=== PATIENT | male | born 1965 | race Caucasian/White ===

== ENCOUNTER 2017-01-18 14:34 | Inpatient (IN) | payer BC ==
[~2017-01-18] VITALS: Ht 190.5 cm; Wt 92.1 kg
[2017-01-18] MEDS ORDERED: IOHEXOL 300 MG/ML 75 ML VIAL IV ONE (15:45)
[2017-01-18] MEDS ORDERED: IOHEXOL 240 MG/ML 50ML VIAL. PO ONE (15:45)
--- NOTE | 2017-01-18 15:46 | PHYS DOC ---
Past Medical History Past Medical History: Hypertension Past Surgical History: Appendectomy, Cholecystectomy, Other Additional Past Surgical Histo: RECTAL FISTULA, FRACTURED NECK Alcohol Use: Occasionally Drug Use: None Adult General Chief Complaint Chief Complaint: ABSCESS HPI HPI Patient is a 51 year old male presents emergency department stating that he's had a past medical history of a rectal fistula which had to be surgically repaired. He states he has having pain in the same area. He states the pain started yesterday. He states his that had a bowel movement for the last 2 days. He states that he is not constipated states that it just feels as though he can' t push it out because it's too swollen. Patient denies any fever, chills or any nausea or vomiting. Review of Systems Review of Systems Constitutional: Denies fever or chills [] Eyes: Denies change in visual acuity, redness, or eye pain [] HENT: Denies nasal congestion or sore throat [] Respiratory: Denies cough or shortness of breath [] Cardiovascular: No additional information not addressed in HPI [] GI: Denies abdominal pain, nausea, vomiting, bloody stools or diarrhea [] : Denies dysuria or hematuria [] Musculoskeletal: Denies back pain or joint pain [] Integument: Denies rash or skin lesions [] Neurologic: Denies headache, focal weakness or sensory changes [] Endocrine: Denies polyuria or polydipsia [] Current Medications Current Medications Current Medications Medications (Trade) Dose Ordered Sig/Devante Start Time Stop Time Status Last Admin Dose Admin Fentanyl Citrate (Fentanyl 2ml Vial) 50 mcg 1X ONCE 01/18/17 16:15 01/18/17 16:16 DC 01/18/17 16:15 50 MCG Info (Do NOT chart on this entry -- for MONITORING) 1 each PRN DAILY PRN 01/18/17 16:00 01/20/17 15:59 Iohexol (Omnipaque 240 Mg/ml) 30 ml 1X ONCE 01/18/17 15:45 01/18/17 15:46 DC 01/18/17 15:45 30 ML Iohexol (Omnipaque 300 Mg/ml) 75 ml 1X ONCE 01/18/17 15:45 01/18/17 15:46 DC 01/18/17 17:28 75 ML Morphine Sulfate 5 mg 1X ONCE 01/18/17 18:15 01/18/17 18:16 DC 01/18/17 17:59 5 MG Ondansetron HCl (Zofran) 4 mg 1X ONCE 01/18/17 16:15 01/18/17 16:16 DC 01/18/17 16:14 4 MG Allergies Allergies Allergies Coded Allergies Type Severity Reaction Last Updated Verified No Known Drug Allergies 01/18/17 No Physical Exam Physical Exam Constitutional: Well developed, well nourished, no acute distress, non-toxic appearance. [] HENT: Normocephalic, atraumatic, bilateral external ears normal, oropharynx moist, no oral exudates, nose normal. [] Eyes: PERRLA, EOMI, conjunctiva normal, no discharge. [] Neck: Normal range of motion, no tenderness, supple, no stridor. [] Cardiovascular:Heart rate regular rhythm, no murmur [] Lungs & Thorax: Bilateral breath sounds clear to auscultation [] Abdomen: Bowel sounds normal, soft, no tenderness, no masses, no pulsatile masses. [] Skin: Warm, dry, no erythema, no rash. [] Back: No tenderness Extremities: No tenderness, no cyanosis, no clubbing, ROM intact, no edema. [] Neurologic: Alert and oriented X 3, normal motor function, normal sensory function, no focal deficits noted. [] Psychologic: Affect normal, judgement normal, mood normal. [] Rectal exam with tenderness noted along the scar of old fistula repair, manual exam with patient tender at the 7 'clock area Current Patient Data Vital Signs Vital Signs Date Time Temp Pulse Resp B/P (MAP) Pulse Ox O2 Delivery O2 Flow Rate FiO2 01/18/17 17:59 Room Air 01/18/17 15:02 98.4 83 12 96 98.4 Lab Values Laboratory Tests Test 01/18/17 15:40 White Blood Count 19.8 x10^3/uL (4.0-11.0) H Red Blood Count 3.39 x10^6/uL (4.30-5.70) L Hemoglobin 11.2 g/dL (13.0-17.5) L Hematocrit 32.7 % (39.0-53.0) L Mean Corpuscular Volume 96 fL (79-100) Mean Corpuscular Hemoglobin 33 pg (25-35) Mean Corpuscular Hemoglobin Concent 34 g/dL (31-37) Red Cell Distribution Width 12.6 % (11.5-14.5) Platelet Count 521 x10^3/uL (140-400) H Neutrophils (%) (Auto) 72 % (31-73) Lymphocytes (%) (Auto) 15 % (24-48) L Monocytes (%) (Auto) 12 % (0-9) H Eosinophils (%) (Auto) 1 % (0-3) Basophils (%) (Auto) 1 % (0-3) Neutrophils # (Auto) 14.3 x10^3uL (1.8-7.7) H Lymphocytes # (Auto) 2.9 x10^3/uL (1.0-4.8) Monocytes # (Auto) 2.4 x10^3/uL (0.0-1.1) H Eosinophils # (Auto) 0.1 x10^3/uL (0.0-0.7) Basophils # (Auto) 0.1 x10^3/uL (0.0-0.2) Segmented Neutrophils % 72 % (35-66) H Band Neutrophils % 7 % (0-9) Lymphocytes % 13 % (24-48) L Monocytes % 7 % (0-10) Eosinophils % 1 % (0-5) Platelet Estimate Increased (ADEQUATE) Erythrocyte Sedimentation Rate 96 (0-15) H Sodium Level 134 mmol/L (136-145) L Potassium Level 3.7 mmol/L (3.5-5.1) Chloride Level 96 mmol/L (98-107) L Carbon Dioxide Level 26 mmol/L (21-32) Anion Gap 12 (6-14) Blood Urea Nitrogen 25 mg/dL (8-26) Creatinine 1.3 mg/dL (0.7-1.3) Estimated GFR (Cockcroft-Gault) 58.0 BUN/Creatinine Ratio 19 (6-20) Glucose Level 89 mg/dL (70-99) Calcium Level 9.4 mg/dL (8.5-10.1) Total Bilirubin 0.5 mg/dL (0.2-1.0) Aspartate Amino Transferase (AST) 70 U/L (15-37) H Alanine Aminotransferase (ALT) 111 U/L (16-63) H Alkaline Phosphatase 190 U/L (46-116) H C-Reactive Protein, Quantitative 189.4 mg/L (0-3.3) H Total Protein 7.5 g/dL (6.4-8.2) Albumin 3.6 g/dL (3.4-5.0) Albumin/Globulin Ratio 0.9 (1.0-1.7) L Laboratory Tests 01/18/17 15:40 Laboratory Tests 01/18/17 15:40 EKG EKG [] Radiology/Procedures Radiology/Procedures []PROCEDURE: CT ABD PELV W/ORAL&IV CONTRAST CT abdomen and pelvis with contrast History: Right buttock abscess and pain, history of rectal fistula and repair, chronic rectal pain Technique: After the administration of oral and intravenous contrast, CT imaging was performed of the abdomen and pelvis. Multiplanar images are reviewed. Exposure: One or more of the following individualized dose reduction techniques were utilized for this examination: 1. Automated exposure control 2. Adjustment of the mA and/or kV according to patient size 3. Use of iterative reconstruction technique. Contrast: 60 cc Omnipaque 300 Comparison: March 31, 2009 Findings: There are couple of small although fairly dense nodules of the visualized right lower lobe, also tiny 0.2 cm right middle lobe nodule. There are now multiple (at least 13) scattered hypodense foci of the liver, largest in the right lobe 1.9 cm. There is no adrenal nodularity. Both kidneys enhance, no hydronephrosis. There is no focal abnormality of the spleen. There is now a small hypodense lesion of the uncinate process of the pancreas on the order of 0.9 cm with associated focus of calcification. There has been cholecystectomy in the interval. Bowel is not considered significantly dilated. No free air is identified. There apparently has been appendectomy. There is severe distention of the urinary bladder. There is asymmetric hazy and strandy changes of the subcutaneous fat of the right gluteal crease. There is abnormal 4.2 cm AP by 3.7 cm transverse by at least 5.2 cm CC fluid collection of the medial right gluteal subcutaneous fat. There is deviation of the anus to the left, no discernible fat plane between the anus and fluid collection/phlegmon. There are again several bilateral inguinal lymph nodes. There are several small subcentimeter retroperitoneal lymph nodes as seen previously. However portal caval node to 1.6 cm short axis dimension is larger, adjacent mild hazy change in the fat. Juliane mass also now results in a greater degree of effacement of fat about the right aspect of the celiac artery. Impression: 1. There is abnormal fluid collection/abscess of the medial right buttock soft tissues with no discernible fat plane between the adjacent anus which is deviated to the left. 2. There are multiple hypodense foci in the liver not seen on 2009 exam concerning for metastatic disease, abscesses less likely. 3. There is now small hypodense mass with calcification of the uncinate process of the pancreas concerning for possible pancreatic malignancy. Portacaval node is larger with effacement of fat and contact of the right aspect of the celiac artery. 4. There is severe distention of the urinary bladder. Electronically signed by: Leigh Hanley MD (01/18/2017 7:11 PM) DICTATED and SIGNED BY: LEIGH HANLEY MD DATE: 01/18/17 8114 CC: GALEN BURNETT APRN; CHIQUIS BELTRÁN DO ~ Course & Med Decision Making Course & Med Decision Making Pertinent Labs and Imaging studies reviewed. (See chart for details) [id number] scan, CBC, CMP and UA pending at this time. Report given to Raisa Zapata NP. 16:54 Assumed care Patient is a 51-year-old male with history of hypertension and smoking who presents today with a rectal abscess for the last 1 1/2 weeks to 2 weeks. Patient denies any drainage from the area. He states he has previous history of Rectal fistula a couple years ago. On physical exam patient has a moderately indurated area on the rectal and buttock area. No fluctuance to the area CT of the abdomen and pelvic shows patient has fluid collection/abscess on the right anus, multiple hypodense foci in the liver concerning for metastatic disease. There is small hypodense mass with calcification of the urine it processes of the pancreas concerning for possible pancreatic malignancy. There is also severe distention of urinary bladder. Patient states he cannot void efficiently and unless he is taking a shower. He states this has been going on for a couple weeks. 19:[address] Carmichael who will f/u with patient for general surgery. 19:[address] Flores who will follow up with patient for GI Dragon Disclaimer Dragon Disclaimer This electronic medical record was generated, in whole or in part, using a voice recognition dictation system. Departure Departure Impression: Primary Impression: Rectal abscess Additional Impressions: Pancreatic cancer Liver metastases Disposition: ADMITTED INPATIENT Condition: STABLE Problem Qualifiers Additional Impressions: Pancreatic cancer Pancreatic malignancy location: unspecified Qualified Codes: C25.9 - Malignant neoplasm of pancreas, unspecified GALEN BURNETT [employer]CH[employer]ISE PRESENTATION MANAGER January 18, 2017 15:46 RAISA ZAPATA MERCH[employer]ISE PRESENTATION MANAGER January 18, 2017 19:53
[2017-01-18 15:49] LABS: BASO # 0.1 x10^3/uL (0.0-0.2); BASO % 1 % (0-3); EOS % 1 % (0-3); HEMATOCRIT 32.7 % (39.0-53.0); HEMOGLOBIN 11.2 g/dL (13.0-17.5); LYMPH # 2.9 x10^3/uL (1.0-4.8); LYMPH % 15 % (24-48); MEAN CORPUSCULAR HEMOGLOBIN 33 pg (25-35); MEAN CORPUSCULAR HGB CONC 34 g/dL (31-37); MEAN CORPUSCULAR VOLUME 96 fL (79-100); MONO % 12 % (0-9); NEUT % 72 % (31-73); PLATELET COUNT 521 x10^3/uL (140-400); RED BLOOD COUNT 3.39 x10^6/uL (4.30-5.70); RED CELL DISTRIBUTION WIDTH 12.6 % (11.5-14.5); WHITE BLOOD COUNT 19.8 x10^3/uL (4.0-11.0)
[2017-01-18] MEDS ORDERED: CONTRAST GIVEN MC PRN (16:00)
[2017-01-18] MEDS ORDERED: fentaNYL PF VIAL 100 MCG/2 ML VIAL IV ONE (16:15)
[2017-01-18] MEDS ORDERED: ONDANSETRON PF 4 MG/2 ML VIAL. IV ONE (16:15)
[2017-01-18 16:26] LABS: CALCIUM 9.4 mg/dL (8.5-10.1); CREATININE 1.3 mg/dL (0.7-1.3); POTASSIUM 3.7 mmol/L (3.5-5.1)
[2017-01-18 16:28] LABS: % EOS 1 % (0-5); ALBUMIN 3.6 g/dL (3.4-5.0); ALBUMIN/GLOBULIN RATIO 0.9 (1.0-1.7); PLT ESTIMATE INCREASED (ADEQUATE); TOTAL BILIRUBIN 0.5 mg/dL (0.2-1.0); TOTAL PROTEIN 7.5 g/dL (6.4-8.2)
[2017-01-18] MEDS ORDERED: MORPHINE SULFATE 10 MG/ML VIAL. IV ONE (18:15)
--- NOTE | 2017-01-18 19:13 | RAD ---
CT abdomen and pelvis with contrast History: Right buttock abscess and pain, history of rectal fistula and repair, chronic rectal pain Technique: After the administration of oral and intravenous contrast, CT imaging was performed of the abdomen and pelvis. Multiplanar images are reviewed. Exposure: One or more of the following individualized dose reduction techniques were utilized for this examination: 1. Automated exposure control 2. Adjustment of the mA and/or kV according to patient size 3. Use of iterative reconstruction technique. Contrast: 60 cc Omnipaque 300 Comparison: March 31, 2009 Findings: There are couple of small although fairly dense nodules of the visualized right lower lobe, also tiny 0.2 cm right middle lobe nodule. There are now multiple (at least 13) scattered hypodense foci of the liver, largest in the right lobe 1.9 cm. There is no adrenal nodularity. Both kidneys enhance, no hydronephrosis. There is no focal abnormality of the spleen. There is now a small hypodense lesion of the uncinate process of the pancreas on the order of 0.9 cm with associated focus of calcification. There has been cholecystectomy in the interval. Bowel is not considered significantly dilated. No free air is identified. There apparently has been appendectomy. There is severe distention of the urinary bladder. There is asymmetric hazy and strandy changes of the subcutaneous fat of the right gluteal crease. There is abnormal 4.2 cm AP by 3.7 cm transverse by at least 5.2 cm CC fluid collection of the medial right gluteal subcutaneous fat. There is deviation of the anus to the left, no discernible fat plane between the anus and fluid collection/phlegmon. There are again several bilateral inguinal lymph nodes. There are several small subcentimeter retroperitoneal lymph nodes as seen previously. However portal caval node to 1.6 cm short axis dimension is larger, adjacent mild hazy change in the fat. Juliane mass also now results in a greater degree of effacement of fat about the right aspect of the celiac artery. Impression: 1. There is abnormal fluid collection/abscess of the medial right buttock soft tissues with no discernible fat plane between the adjacent anus which is deviated to the left. 2. There are multiple hypodense foci in the liver not seen on 2009 exam concerning for metastatic disease, abscesses less likely. 3. There is now small hypodense mass with calcification of the uncinate process of the pancreas concerning for possible pancreatic malignancy. Portacaval node is larger with effacement of fat and contact of the right aspect of the celiac artery. 4. There is severe distention of the urinary bladder. Electronically signed by: Bam Stewart MD (01/18/2017 7:11 PM)
[2017-01-18] MEDS ORDERED: ONDANSETRON PF 4 MG/2 ML VIAL. IV PRN (21:15)
[2017-01-18] MEDS ORDERED: ACETAMINOPHEN 325 MG TABLET. PO PRN (21:15)
[2017-01-18] MEDS ORDERED: CIPROFLOXACIN 400MG PREMIX 200 ML IV SCH (22:00)
[2017-01-18] MEDS: MORPHINE SULFATE 4 MG/ML DISP.SYRIN. IV PRN (22:01)
[2017-01-18] MEDS: IV NORMAL SALINE 1000ML BAG 1,000 ML IV SCH (22:03)
[2017-01-18] MEDS ORDERED: GABA300C8 PO (22:17)
[2017-01-18] MEDS ORDERED: MELO-150 PO (22:17)
[2017-01-18] MEDS ORDERED: CYCL10TA2 PO (22:17)
[2017-01-18] MEDS ORDERED: LISI1TAB5 PO (22:17)
[2017-01-18 23:00] VITALS: BP 105/63
[2017-01-19] VITALS (10 sets, daily range): BP systolic 86–98; BP diastolic 54–64
[2017-01-19] MEDS: MORPHINE SULFATE 4 MG/ML DISP.SYRIN. IV PRN (04:13)
[2017-01-19 06:16] LABS: BASO # 0.1 x10^3/uL (0.0-0.2); BASO % 1 % (0-3); EOS % 1 % (0-3); HEMATOCRIT 32.6 % (39.0-53.0); HEMOGLOBIN 11.1 g/dL (13.0-17.5); LYMPH # 1.8 x10^3/uL (1.0-4.8); LYMPH % 11 % (24-48); MEAN CORPUSCULAR HEMOGLOBIN 33 pg (25-35); MEAN CORPUSCULAR HGB CONC 34 g/dL (31-37); MEAN CORPUSCULAR VOLUME 96 fL (79-100); MONO % 12 % (0-9); NEUT % 75 % (31-73); PLATELET COUNT 489 x10^3/uL (140-400); RED BLOOD COUNT 3.39 x10^6/uL (4.30-5.70); RED CELL DISTRIBUTION WIDTH 12.9 % (11.5-14.5); WHITE BLOOD COUNT 16.4 x10^3/uL (4.0-11.0)
[2017-01-19 06:37] LABS: ALBUMIN/GLOBULIN RATIO 0.9 (1.0-1.7); CALCIUM 8.7 mg/dL (8.5-10.1); CREATININE 1.1 mg/dL (0.7-1.3); GFR 70.3; POTASSIUM 4.1 mmol/L (3.5-5.1); TOTAL BILIRUBIN 0.9 mg/dL (0.2-1.0); TOTAL PROTEIN 6.5 g/dL (6.4-8.2)
[2017-01-19] MEDS ORDERED: BUPIVAC MPF-EPI 0.5%-1:200000 30 ML VIAL. ONE (07:02)
[2017-01-19] MEDS ORDERED: PROPOFOL 20 ML IV ONE (07:27)
[2017-01-19] MEDS ORDERED: DEXAMETHASONE SOD PHOS 20 MG/5 ML VIAL. ONE (07:27)
[2017-01-19] MEDS ORDERED: LIDOCAINE 2% PF Vial for OR 5 ML VIAL. ONE (07:27)
[2017-01-19] MEDS ORDERED: ONDANSETRON PF 4 MG/2 ML VIAL. ONE (07:27)
[2017-01-19] MEDS ORDERED: fentaNYL PF VIAL 100 MCG/2 ML VIAL ONE ×2 (07:32→08:31)
[2017-01-19] MEDS ORDERED: IV RINGERS,LACTATED 1000ML 1,000 ML IV SCH (08:02)
[2017-01-19] MEDS ORDERED: LIDOCAINE 1% 1 ML SYRINGE. ID PRN (08:15)
[2017-01-19] MEDS ORDERED: ONDANSETRON PF 4 MG/2 ML VIAL. IV PRN ×2 (08:15→10:00)
[2017-01-19] MEDS ORDERED: fentaNYL PF VIAL 100 MCG/2 ML VIAL IV PRN ×2 (08:15)
[2017-01-19] MEDS ORDERED: HYDROmorphone 2 MG/ML VIAL IV PRN (08:15)
[2017-01-19] MEDS ORDERED: PROCHLORPERAZINE 10 MG/2 ML VIAL. IV PRN (08:15)
[2017-01-19] MEDS ORDERED: MORPHINE SULFATE 2 MG/ML DISP.SYRIN. IV PRN ×2 (08:15→10:00)
--- NOTE | 2017-01-19 08:17 | PDOC2 ---
CONSULT Date of Consult Date of Consult DATE: 01/19/17 TIME: 08:12 Reason for Consult Reason for Consult: darci rectal abscess Identification/Chief Complaint Chief Complaint rectal pain and swelling Source Source: Patient History of Present Illness Reason for Visit: 51 yo male with 2 weeks history of increasing rectal pain and swelling. Became so painful that he came to ED. He had a similar episode 2 years ago and had a fistulectomy at that time. Past Medical History Cardiovascular: No pertinent hx Pulmonary: No pertinent hx GI: No pertinent hx Heme/Onc: No pertinent hx Hepatobiliary: No pertinent hx Psych: No pertinent hx Rheumatologic: No pertinent hx Infectious disease: No pertinent hx ENT: No pertinent hx Renal/: No pertinent hx Endocrine: No pertinent hx Dermatology: No pertinent hx Past Surgical History Past Surgical History: Cholecystectomy, Other (fistulectomy) Family History Family History: No Significant Social History No ALCOHOL: rare Drugs: None Lives: with Family Current Problem List Problem List Problems Medical Problems: (1) Liver metastases Status: Acute (2) Pancreatic cancer Status: Acute (3) Rectal abscess Status: Acute Current Medications Current Medications Current Medications Iohexol (Omnipaque 300 Mg/ml) 75 ml 1X ONCE IV Last administered on 01/18/17 17:28; Start 01/18/17 at 15:45; Stop 01/18/17 at 15:46; Status DC Iohexol (Omnipaque 240 Mg/ml) 30 ml 1X ONCE PO Last administered on 01/18/17 15:45; Start 01/18/17 at 15:45; Stop 01/18/17 at 15:46; Status DC Info (Do NOT chart on this entry -- for MONITORING) 1 each PRN DAILY PRN MC SEE COMMENTS; Start 01/18/17 at 16:00; Stop 01/20/17 at 15:59 Fentanyl Citrate (Fentanyl 2ml Vial) 50 mcg 1X ONCE IV Last administered on 16:15; Start 01/18/17 at 16:15; Stop 01/18/17 at 16:16; Status DC Ondansetron HCl (Zofran) 4 mg 1X ONCE IV Last administered on 01/18/17 16:14 ; Start 01/18/17 at 16:15; Stop 01/18/17 at 16:16; Status DC Morphine Sulfate 5 mg 1X ONCE IV Last administered on 01/18/17 17:59; Start 01/18/17 at 18:15; Stop 01/18/17 at 18:16; Status DC Ondansetron HCl (Zofran) 4 mg PRN Q8HRS PRN IV NAUSEA/VOMITING; Start 01/18/17 at 21:15; Stop 01/19/17 at 21:14 Morphine Sulfate 4 mg PRN Q2HR PRN IV SEVERE PAIN Last administered on 04:13; Start 01/18/17 at 21:15; Stop 01/19/17 at 21:14 Acetaminophen (Tylenol) 650 mg PRN Q4HRS PRN PO FEVER Last administered on 01/18 22:13; Start 01/18/17 at 21:15; Stop 01/19/17 at 21:14 Sodium Chloride 1,000 ml @ 75 mls/hr [id number] IV Last administered on 22:03; Start 01/18/17 at 21:15 Metronidazole 100 ml @ 100 mls/hr Q8HRS IV Last administered on 01/19/17 06: 12; Start 01/18/17 at 22:00 Ciprofloxacin Lactate 200 ml @ 200 mls/hr Q12HR IV Last administered on 22:08; Start 01/18/17 at 22:00 Bupivacaine HCl/ Epinephrine Bitart (Sensorcain-Mpf Epi 0.5%-1:[id number]) 30 ml STK -MED ONCE .ROUTE ; Start 01/19/17 at 07:02; Stop 01/19/17 at 07:03; Status DC Dexamethasone Sodium Phosphate (Decadron) 20 mg STK-MED ONCE .ROUTE ; Start at 07:27; Stop 01/19/17 at 07:28; Status DC Ondansetron HCl (Zofran) 4 mg STK-MED ONCE .ROUTE ; Start 01/19/17 at 07:27; Stop 01/19/17 at 07:28; Status DC Propofol 20 ml @ As Directed STK-MED ONCE IV ; Start 01/19/17 at 07:27; Stop at 07:28; Status DC Lidocaine HCl (Lidocaine Pf 2% Vial) 5 ml STK-MED ONCE .ROUTE ; Start 01/19/17 at 07:27; Stop 01/19/17 at 07:28; Status DC Fentanyl Citrate (Fentanyl 2ml Vial) 100 mcg STK-MED ONCE .ROUTE ; Start at 07:32; Stop 01/19/17 at 07:33; Status DC Ondansetron HCl (Zofran) 4 mg PRN Q6HRS PRN IV NAUSEA/VOMITING; Start 01/19/17 at 08:15; Stop 01/20/17 at 08:14; Status UNV Fentanyl Citrate (Fentanyl 2ml Vial) 25 mcg PRN Q5MIN PRN IV MILD PAIN; Start 01/19/17 at 08:15; Stop 01/20/17 at 08:14; Status UNV Fentanyl Citrate (Fentanyl 2ml Vial) 50 mcg PRN Q5MIN PRN IV MODERATE PAIN; Start 01/19/17 at 08:15; Stop 01/20/17 at 08:14; Status UNV Morphine Sulfate 1 mg PRN Q10MIN PRN IV SEVERE PAIN; Start 01/19/17 at 08:15; Stop 01/20/17 at 08:14; Status UNV Ringer's Solution 1,000 ml @ 0 mls/hr Q0M IV ; Start 01/19/17 at 08:02; Stop at 20:01; Status UNV Lidocaine HCl 2 ml PRN 1X PRN ID PRIOR TO IV START; Start 01/19/17 at 08:15; Stop 01/20/17 at 08:14; Status UNV Hydromorphone HCl (Dilaudid) 0.5 mg PRN Q10MIN PRN IV SEV PAIN, Second choice; Start 01/19/17 at 08:15; Stop 01/20/17 at 08:14; Status UNV Prochlorperazine Edisylate (Compazine) 5 mg PACU PRN PRN IV NAUSEA, MRX1; Start 01/19/17 at 08:15; Stop 01/20/17 at 08:14; Status UNV Active Scripts Active Reported Lisinopril-Hctz 20-12.5 Mg Tab (Lisinopril/Hydrochlorothiazide) 1 Each Tablet 1 Tab PO DAILY Cyclobenzaprine Hcl 10 Mg Tablet 10 Mg PO DAILY Gabapentin 300 Mg Capsule 300 Mg PO TID Meloxicam 15 Mg Tablet 15 Mg PO DAILY Allergies Allergies: Coded Allergies: No Known Drug Allergies (Unverified , 01/18/17) ROS Gastrointestinal: Yes Other (rectal pain) Physical Exam General: Alert, Oriented X3, Cooperative, mild distress HEENT: Atraumatic, PERRLA, EOMI Lungs: Clear to auscultation, Normal air movement Heart: Regular rate, No murmurs Abdomen: Normal bowel sounds, Soft, No tenderness Extremities: No clubbing, No edema Skin: Other (area of erythema to the right of the anus TTP) Neuro: Normal speech Psych/Mental Status: Mental status NL Vitals VITALS Vital Signs Date Time Temp Pulse Resp B/P (MAP) Pulse Ox O2 Delivery O2 Flow Rate FiO2 01/19/17 04:45 20 Room Air 01/19/17 03:00 98.4 67 87/57 (67) 90 98.4 Labs Labs Laboratory Tests Test 01/18/17 15:40 01/19/17 06:00 White Blood Count 19.8 x10^3/uL (4.0-11.0) 16.4 x10^3/uL (4.0-11.0) Red Blood Count 3.39 x10^6/uL (4.30-5.70) 3.39 x10^6/uL (4.30-5.70) Hemoglobin 11.2 g/dL (13.0-17.5) 11.1 g/dL (13.0-17.5) Hematocrit 32.7 % (39.0-53.0) 32.6 % (39.0-53.0) Mean Corpuscular Volume 96 fL (79-100) 96 fL (79-100) Mean Corpuscular Hemoglobin 33 pg (25-35) 33 pg (25-35) Mean Corpuscular Hemoglobin Concent 34 g/dL (31-37) 34 g/dL (31-37) Red Cell Distribution Width 12.6 % (11.5-14.5) 12.9 % (11.5-14.5) Platelet Count 521 x10^3/uL (140-400) 489 x10^3/uL (140-400) Neutrophils (%) (Auto) 72 % (31-73) 75 % (31-73) Lymphocytes (%) (Auto) 15 % (24-48) 11 % (24-48) Monocytes (%) (Auto) 12 % (0-9) 12 % (0-9) Eosinophils (%) (Auto) 1 % (0-3) 1 % (0-3) Basophils (%) (Auto) 1 % (0-3) 1 % (0-3) Neutrophils # (Auto) 14.3 x10^3uL (1.8-7.7) 12.3 x10^3uL (1.8-7.7) Lymphocytes # (Auto) 2.9 x10^3/uL (1.0-4.8) 1.8 x10^3/uL (1.0-4.8) Monocytes # (Auto) 2.4 x10^3/uL (0.0-1.1) 2.0 x10^3/uL (0.0-1.1) Eosinophils # (Auto) 0.1 x10^3/uL (0.0-0.7) 0.2 x10^3/uL (0.0-0.7) Basophils # (Auto) 0.1 x10^3/uL (0.0-0.2) 0.1 x10^3/uL (0.0-0.2) Segmented Neutrophils % 72 % (35-66) Band Neutrophils % 7 % (0-9) Lymphocytes % 13 % (24-48) Monocytes % 7 % (0-10) Eosinophils % 1 % (0-5) Platelet Estimate Increased (ADEQUATE) Erythrocyte Sedimentation Rate 96 (0-15) Sodium Level 134 mmol/L (136-145) 136 mmol/L (136-145) Potassium Level 3.7 mmol/L (3.5-5.1) 4.1 mmol/L (3.5-5.1) Chloride Level 96 mmol/L (98-107) 99 mmol/L (98-107) Carbon Dioxide Level 26 mmol/L (21-32) 25 mmol/L (21-32) Anion Gap 12 (6-14) 12 (6-14) Blood Urea Nitrogen 25 mg/dL (8-26) 17 mg/dL (8-26) Creatinine 1.3 mg/dL (0.7-1.3) 1.1 mg/dL (0.7-1.3) Estimated GFR (Cockcroft-Gault) 58.0 70.3 BUN/Creatinine Ratio 19 (6-20) 15 (6-20) Glucose Level 89 mg/dL (70-99) 88 mg/dL (70-99) Calcium Level 9.4 mg/dL (8.5-10.1) 8.7 mg/dL (8.5-10.1) Total Bilirubin 0.5 mg/dL (0.2-1.0) 0.9 mg/dL (0.2-1.0) Aspartate Amino Transf (AST/SGOT) 70 U/L (15-37) 103 U/L (15-37) Alanine Aminotransferase (ALT/SGPT) 111 U/L (16-63) 111 U/L (16-63) Alkaline Phosphatase 190 U/L (46-116) 211 U/L (46-116) C-Reactive Protein, Quantitative 189.4 mg/L (0-3.3) Total Protein 7.5 g/dL (6.4-8.2) 6.5 g/dL (6.4-8.2) Albumin 3.6 g/dL (3.4-5.0) 3.0 g/dL (3.4-5.0) Albumin/Globulin Ratio 0.9 (1.0-1.7) 0.9 (1.0-1.7) Laboratory Tests Test 01/18/17 15:40 01/19/17 06:00 White Blood Count 19.8 x10^3/uL (4.0-11.0) 16.4 x10^3/uL (4.0-11.0) Red Blood Count 3.39 x10^6/uL (4.30-5.70) 3.39 x10^6/uL (4.30-5.70) Hemoglobin 11.2 g/dL (13.0-17.5) 11.1 g/dL (13.0-17.5) Hematocrit 32.7 % (39.0-53.0) 32.6 % (39.0-53.0) Mean Corpuscular Volume 96 fL (79-100) 96 fL (79-100) Mean Corpuscular Hemoglobin 33 pg (25-35) 33 pg (25-35) Mean Corpuscular Hemoglobin Concent 34 g/dL (31-37) 34 g/dL (31-37) Red Cell Distribution Width 12.6 % (11.5-14.5) 12.9 % (11.5-14.5) Platelet Count 521 x10^3/uL (140-400) 489 x10^3/uL (140-400) Neutrophils (%) (Auto) 72 % (31-73) 75 % (31-73) Lymphocytes (%) (Auto) 15 % (24-48) 11 % (24-48) Monocytes (%) (Auto) 12 % (0-9) 12 % (0-9) Eosinophils (%) (Auto) 1 % (0-3) 1 % (0-3) Basophils (%) (Auto) 1 % (0-3) 1 % (0-3) Neutrophils # (Auto) 14.3 x10^3uL (1.8-7.7) 12.3 x10^3uL (1.8-7.7) Lymphocytes # (Auto) 2.9 x10^3/uL (1.0-4.8) 1.8 x10^3/uL (1.0-4.8) Monocytes # (Auto) 2.4 x10^3/uL (0.0-1.1) 2.0 x10^3/uL (0.0-1.1) Eosinophils # (Auto) 0.1 x10^3/uL (0.0-0.7) 0.2 x10^3/uL (0.0-0.7) Basophils # (Auto) 0.1 x10^3/uL (0.0-0.2) 0.1 x10^3/uL (0.0-0.2) Segmented Neutrophils % 72 % (35-66) Band Neutrophils % 7 % (0-9) Lymphocytes % 13 % (24-48) Monocytes % 7 % (0-10) Eosinophils % 1 % (0-5) Platelet Estimate Increased (ADEQUATE) Erythrocyte Sedimentation Rate 96 (0-15) Sodium Level 134 mmol/L (136-145) 136 mmol/L (136-145) Potassium Level 3.7 mmol/L (3.5-5.1) 4.1 mmol/L (3.5-5.1) Chloride Level 96 mmol/L (98-107) 99 mmol/L (98-107) Carbon Dioxide Level 26 mmol/L (21-32) 25 mmol/L (21-32) Anion Gap 12 (6-14) 12 (6-14) Blood Urea Nitrogen 25 mg/dL (8-26) 17 mg/dL (8-26) Creatinine 1.3 mg/dL (0.7-1.3) 1.1 mg/dL (0.7-1.3) Estimated GFR (Cockcroft-Gault) 58.0 70.3 BUN/Creatinine Ratio 19 (6-20) 15 (6-20) Glucose Level 89 mg/dL (70-99) 88 mg/dL (70-99) Calcium Level 9.4 mg/dL (8.5-10.1) 8.7 mg/dL (8.5-10.1) Total Bilirubin 0.5 mg/dL (0.2-1.0) 0.9 mg/dL (0.2-1.0) Aspartate Amino Transf (AST/SGOT) 70 U/L (15-37) 103 U/L (15-37) Alanine Aminotransferase (ALT/SGPT) 111 U/L (16-63) 111 U/L (16-63) Alkaline Phosphatase 190 U/L (46-116) 211 U/L (46-116) C-Reactive Protein, Quantitative 189.4 mg/L (0-3.3) Total Protein 7.5 g/dL (6.4-8.2) 6.5 g/dL (6.4-8.2) Albumin 3.6 g/dL (3.4-5.0) 3.0 g/dL (3.4-5.0) Albumin/Globulin Ratio 0.9 (1.0-1.7) 0.9 (1.0-1.7) Images Images CT of the abd/pelvis showing perirectal abscess, also findings of pancreatic mass with mets to the liver Assessment/Plan Assessment/Plan Darci rectal abscess plan for I&D today Pancreatic mass, recommend oncology consult and refer to Dr Peterson for further evaluation and treatment options. NICCI ESTRADA MD January 19, 2017 08:17
--- NOTE | 2017-01-19 08:40 | PDOC ---
BRIEF OPERATIVE NOTE Date: January 19, 2017 Pre-Op Diagnosis Cheryl Rectal Abscess Post-Op Diagnosis Same Procedure Performed I&D of Abscess Surgeon Amol Anesthesia Type: General Blood Loss 30ml Specimens Obtained Cultures Findings as above Complications None NICCI ESTRADA MD January 19, 2017 08:40
[2017-01-19] MEDS ORDERED: oxyCODONE/APAP 5/325 1 TAB TABLET PO PRN (08:45)
--- NOTE | 2017-01-19 09:49 | OP ---
DATE OF SURGERY: 01/19/2017 PREOPERATIVE DIAGNOSIS: Perirectal abscess. POSTOPERATIVE DIAGNOSIS: Perirectal abscess. PROCEDURE: Incision and drainage of perirectal abscess. SURGEON: Kike Estrada M.D. INDICATIONS: The patient is a 51-year-old gentleman who has had 2 weeks history of increasing pain and swelling around the rectum with difficulty urinating, comes into the Emergency Department with worsening of pain. A CT scan was done, which showed fairly large perirectal ____ abscess. Procedure of incision and drainage was explained to the patient in detail. Risks, benefits were also discussed including bleeding, infection. Alternatives of this procedure were also discussed with the patient who seemed to understand and gave verbal and written consent to have the procedure performed. DESCRIPTION OF PROCEDURE: The patient was taken to the operating room and placed in the supine position. General anesthesia was initiated. Once the patient was asleep and intubated, he was placed in lithotomy, exposing the perirectal area. The area was prepped and draped in usual sterile fashion using Betadine scrub and solution. Area around the swelling was injected with 0.25% Marcaine with epinephrine. Incision was made with an 11 blade scalpel. Copious amounts of purulent material were expressed. This was cultured. The wound was then irrigated with copious amounts of normal saline until clear. Then, the wound was then packed with half inch iodoform Nu Gauze and dressed with ABD. The patient was awakened, extubated in the operating room, taken to recovery in stable condition. All sponge, instrument counts listed as correct. ESTIMATED BLOOD LOSS: 30 mL. KIKE ESTRADA MD DR: FE/florentin JOB#: [id number] / [id number]
[2017-01-19] MEDS ORDERED: PIP/TAZO PER PHARMACY MC PRN (10:00)
[2017-01-19] MEDS ORDERED: ACETAMINOPHEN 325 MG TABLET. PO PRN (10:00)
[2017-01-19] MEDS ORDERED: DOCUSATE SODIUM 100 MG CAPSULE. PO PRN (10:00)
[2017-01-19] MEDS ORDERED: hydrALAZINE 20 MG/ML VIAL. IVP PRN (10:00)
[2017-01-19] MEDS ORDERED: traMADol 50 MG TABLET PO PRN (10:00)
[2017-01-19] MEDS ORDERED: VANCOMYCIN 2 GM in IV NORMAL SALINE 500ML BAG 500 ML IV ONE (11:00)
[2017-01-19] MEDS: CYCLOBENZAPRINE 10 MG TABLET. PO SCH (11:20)
[2017-01-19] MEDS: LISINOPRIL 20 MG TABLET PO SCH (11:21)
[2017-01-19] MEDS: hydroCHLOROthiazide 12.5 MG CAPSULE PO SCH (11:21)
[2017-01-19] MEDS: GABAPENTIN 300 MG CAPSULE. PO SCH ×3 (11:22→20:59)
[2017-01-19] MEDS: MELOXICAM 7.5 MG TABLET PO SCH (11:22)
[2017-01-19] MEDS: PIPERACILLIN/TAZOBACTAM 3.375 GM in IV NORMAL SALINE 100ML 100 ML IV SCH ×2 (11:23→17:51)
[2017-01-19] MEDS: IV NORMAL SALINE 1000ML BAG 1,000 ML IV SCH (11:23)
--- NOTE | 2017-01-19 11:28 | PDOC ---
Infectious Disease Note ROS ROS Vital Sign Vital Signs Vital Signs Date Time Temp Pulse Resp B/P (MAP) Pulse Ox O2 Delivery O2 Flow Rate FiO2 01/19/17 09:27 99.2 69 20 104/65 94 Room Air 99.2 01/19/17 08:57 8 Labs Lab Laboratory Tests Test 01/18/17 15:40 01/19/17 06:00 White Blood Count 19.8 x10^3/uL (4.0-11.0) 16.4 x10^3/uL (4.0-11.0) Red Blood Count 3.39 x10^6/uL (4.30-5.70) 3.39 x10^6/uL (4.30-5.70) Hemoglobin 11.2 g/dL (13.0-17.5) 11.1 g/dL (13.0-17.5) Hematocrit 32.7 % (39.0-53.0) 32.6 % (39.0-53.0) Mean Corpuscular Volume 96 fL (79-100) 96 fL (79-100) Mean Corpuscular Hemoglobin 33 pg (25-35) 33 pg (25-35) Mean Corpuscular Hemoglobin Concent 34 g/dL (31-37) 34 g/dL (31-37) Red Cell Distribution Width 12.6 % (11.5-14.5) 12.9 % (11.5-14.5) Platelet Count 521 x10^3/uL (140-400) 489 x10^3/uL (140-400) Neutrophils (%) (Auto) 72 % (31-73) 75 % (31-73) Lymphocytes (%) (Auto) 15 % (24-48) 11 % (24-48) Monocytes (%) (Auto) 12 % (0-9) 12 % (0-9) Eosinophils (%) (Auto) 1 % (0-3) 1 % (0-3) Basophils (%) (Auto) 1 % (0-3) 1 % (0-3) Neutrophils # (Auto) 14.3 x10^3uL (1.8-7.7) 12.3 x10^3uL (1.8-7.7) Lymphocytes # (Auto) 2.9 x10^3/uL (1.0-4.8) 1.8 x10^3/uL (1.0-4.8) Monocytes # (Auto) 2.4 x10^3/uL (0.0-1.1) 2.0 x10^3/uL (0.0-1.1) Eosinophils # (Auto) 0.1 x10^3/uL (0.0-0.7) 0.2 x10^3/uL (0.0-0.7) Basophils # (Auto) 0.1 x10^3/uL (0.0-0.2) 0.1 x10^3/uL (0.0-0.2) Segmented Neutrophils % 72 % (35-66) Band Neutrophils % 7 % (0-9) Lymphocytes % 13 % (24-48) Monocytes % 7 % (0-10) Eosinophils % 1 % (0-5) Platelet Estimate Increased (ADEQUATE) Erythrocyte Sedimentation Rate 96 (0-15) Sodium Level 134 mmol/L (136-145) 136 mmol/L (136-145) Potassium Level 3.7 mmol/L (3.5-5.1) 4.1 mmol/L (3.5-5.1) Chloride Level 96 mmol/L (98-107) 99 mmol/L (98-107) Carbon Dioxide Level 26 mmol/L (21-32) 25 mmol/L (21-32) Anion Gap 12 (6-14) 12 (6-14) Blood Urea Nitrogen 25 mg/dL (8-26) 17 mg/dL (8-26) Creatinine 1.3 mg/dL (0.7-1.3) 1.1 mg/dL (0.7-1.3) Estimated GFR (Cockcroft-Gault) 58.0 70.3 BUN/Creatinine Ratio 19 (6-20) 15 (6-20) Glucose Level 89 mg/dL (70-99) 88 mg/dL (70-99) Calcium Level 9.4 mg/dL (8.5-10.1) 8.7 mg/dL (8.5-10.1) Total Bilirubin 0.5 mg/dL (0.2-1.0) 0.9 mg/dL (0.2-1.0) Aspartate Amino Transf (AST/SGOT) 70 U/L (15-37) 103 U/L (15-37) Alanine Aminotransferase (ALT/SGPT) 111 U/L (16-63) 111 U/L (16-63) Alkaline Phosphatase 190 U/L (46-116) 211 U/L (46-116) C-Reactive Protein, Quantitative 189.4 mg/L (0-3.3) Total Protein 7.5 g/dL (6.4-8.2) 6.5 g/dL (6.4-8.2) Albumin 3.6 g/dL (3.4-5.0) 3.0 g/dL (3.4-5.0) Albumin/Globulin Ratio 0.9 (1.0-1.7) 0.9 (1.0-1.7) Objective Assessment Cheryl-rectal abscess, s/p I and D, 01/19 Fever Leukocytosis Pancreatic mass with possible liver mets Urinary retention requiring indwelling Kunz Plan Plan of Care Agree with Bethany and Ivory. Had buttock abscess 2 years ago Consider ONC eval await ? MRI per GI monitor WBC, Cr and temp F/u intra-op cultures, d/w micro D/w mother Thank you [id number] D/w mother WARRENTYLOR DAVIS Svetlana PERALES January 19, 2017 11:28 ZULY HANNA MD January 19, 2017 15:03
--- NOTE | 2017-01-19 12:40 | PDOC1 ---
History and Physical Date of Admission Date of Admission 01/18/17 Identification/Chief Complaint Chief Complaint rectal pain Problems: Source Source: Chart review, Patient History of Present Illness History of Present Illness HPI Patient is a 51 year old male presents emergency department for rectal pain for 2 weeks. 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 He started to feel right side buttock/rectal pain 2 weeks ago, 10/10, could not urinate well, had fever with T 100s, no chills. The pain and swelling is getting worse for 2 days. Last BM was 2 days ago.He states that he is not constipated states that it just feels as though he can't push it out because it' s too swollen. in ER, CT showed rectal abscess, liver and pancreatic mass, distended bladder. no cough, sob, chest pain lost 10 pounds within 2 months, pt states 2/2 work hard Past Medical History Cardiovascular: HTN Pulmonary: No pertinent hx GI: No pertinent hx Heme/Onc: No pertinent hx Hepatobiliary: No pertinent hx Psych: No pertinent hx Rheumatologic: No pertinent hx Infectious disease: No pertinent hx ENT: No pertinent hx Renal/: No pertinent hx Endocrine: No pertinent hx Dermatology: No pertinent hx Past Surgical History Past Surgical History: Cholecystectomy, Other (fistulectomy) Family History Family History: No Significant Social History Smoke: 1 pack per day ALCOHOL: other (3-4 times per week, 12 ounces per time) Drugs: None Current Problem List Problem List Problems Medical Problems: (1) Liver metastases Status: Acute (2) Pancreatic cancer Status: Acute (3) Rectal abscess Status: Acute Current Medications Current Medications Current Medications Medications (Trade) Dose Ordered Sig/Devante Start Time Stop Time Status Last Admin Dose Admin Acetaminophen (Tylenol) 650 mg PRN Q6HRS PRN 01/19/17 10:00 Bupivacaine HCl/ Epinephrine Bitart (Sensorcain-Mpf Epi 0.5%-1:[id number]) 30 ml STK-MED ONCE 01/19/17 07:02 01/19/17 07:03 DC 01/19/17 08:28 3 ML Ciprofloxacin Lactate 200 ml @ 200 mls/hr Q12HR 01/18/17 22:00 01/19/17 10:00 DC 01/18/17 22:08 200 MLS/HR Cyclobenzaprine HCl (Flexeril) 10 mg DAILY 01/19/17 10:00 01/19/17 11:20 10 MG Dexamethasone Sodium Phosphate (Decadron) 20 mg STK-MED ONCE 01/19/17 07:27 01/19/17 07:28 DC Docusate Sodium (Colace) 100 mg PRN DAILY PRN 01/19/17 10:00 Fentanyl Citrate (Fentanyl 2ml Vial) 100 mcg STK-MED ONCE 01/19/17 08:31 01/19/17 08:32 DC Gabapentin (Neurontin) 300 mg TID 01/19/17 10:00 01/19/17 11:22 300 MG Hydralazine HCl (Apresoline) 10 mg PRN Q4HRS PRN 01/19/17 10:00 Hydrochlorothiazide (Microzide) 12.5 mg DAILY 01/19/17 10:00 01/19/17 11:21 12.5 MG Hydromorphone HCl (Dilaudid) 0.5 mg PRN Q10MIN PRN 01/19/17 08:15 01/19/17 10:41 DC Info (Do NOT chart on this entry -- for MONITORING) 1 each PRN DAILY PRN 01/18/17 16:00 01/20/17 15:59 Iohexol (Omnipaque 240 Mg/ml) 30 ml 1X ONCE 01/18/17 15:45 01/18/17 15:46 DC 01/18/17 15:45 30 ML Iohexol (Omnipaque 300 Mg/ml) 75 ml 1X ONCE 01/18/17 15:45 01/18/17 15:46 DC 01/18/17 17:28 75 ML Lidocaine HCl 2 ml PRN 1X PRN 01/19/17 08:15 01/19/17 18:00 Lidocaine HCl (Lidocaine Pf 2% Vial) 5 ml STK-MED ONCE 01/19/17 07:27 01/19/17 07:28 DC Lisinopril (Prinivil) 20 mg DAILY 01/19/17 10:00 01/19/17 11:21 20 MG Meloxicam (Mobic) 15 mg DAILY 01/19/17 10:00 01/19/17 11:22 15 MG Metronidazole 100 ml @ 100 mls/hr Q8HRS 01/18/17 22:00 01/19/17 10:00 DC 01/19/17 06:12 100 MLS/HR Morphine Sulfate 2 mg PRN Q2HR PRN 01/19/17 10:00 Ondansetron HCl (Zofran) 4 mg PRN Q6HRS PRN 01/19/17 10:00 Oxycodone/ Acetaminophen (Percocet 5/325) 2 tab PRN Q4HRS PRN 01/19/17 08:45 Piperacillin Sod/ Tazobactam Sod (Zosyn Per Pharmacy) 1 each PRN DAILY PRN 01/19/17 10:00 Piperacillin Sod/ Tazobactam Sod 3.375 gm/Sodium Chloride 100 ml @ 200 mls/hr Q6HRS 01/19/17 11:00 01/19/17 11:23 200 MLS/HR Prochlorperazine Edisylate (Compazine) 5 mg PACU PRN PRN 01/19/17 08:15 01/19/17 10:41 DC Propofol 20 ml @ As Directed STK-MED ONCE 01/19/17 07:27 01/19/17 07:28 DC Ringer's Solution 1,000 ml @ 30 mls/hr Q24H 01/19/17 08:02 01/19/17 10:35 DC Sodium Chloride 1,000 ml @ 75 mls/hr [id number] 01/18/17 21:15 01/19/17 11:23 75 MLS/HR Tramadol HCl (Ultram) 50 mg PRN Q6HRS PRN 01/19/17 10:00 Vancomycin HCl (Vanco Per Pharmacy) 1 each PRN DAILY PRN 01/19/17 10:00 Vancomycin HCl 2 gm/Sodium Chloride 500 ml @ 250 mls/hr 1X ONCE 01/19/17 11:00 01/19/17 12:59 01/19/17 12:30 250 MLS/HR Allergies Allergies Allergies Coded Allergies Type Severity Reaction Last Updated Verified No Known Drug Allergies 01/18/17 No ROS Review of System CONSTITUTIONAL: No fever or chills EYES: No recent changes SKIN: No rash or itching CARDIOVASCULAR: No chest pain, syncope, palpitations, or edema RESPIRATORY: No SOB or cough GASTROINTESTINAL: No nausea, vomiting or abdominal pain NEUROLOGICAL: No headaches or weakness ENDOCRINE: No cold or heat intolerance GENITOURINARY: No urgency or frequency of urination MUSCULOSKELETAL: No back pain or joint pain LYMPHATICS: No enlarged lymph nodes PSYCHIATRIC: No anxiety or depression Physical Exam Physical Exam GEN.: No apparent distress. Alert and oriented. HEENT: Head is normocephalic, atraumatic NECK: Supple. LUNGS: Clear to auscultation. HEART: RRR, S1, S2 present. Peripheral pulses intact ABDOMEN: Soft, nontender. Positive bowel sounds. EXTREMITIES: Without any cyanosis. NEUROLOGIC: Normal speech, normal tone PSYCHIATRIC: Normal affect, normal mood. SKIN: right side posterior aspect of right buttock s/p I and D, with some fresh blood in the dressing, dressing packed. Vitals Vitals Vital Signs Date Time Temp Pulse Resp B/P (MAP) Pulse Ox O2 Delivery O2 Flow Rate FiO2 01/19/17 11:21 69 104/65 01/19/17 09:27 99.2 20 94 Room Air 99.2 01/19/17 08:57 8 Labs Labs Laboratory Tests Test 01/18/17 15:40 01/19/17 06:00 White Blood Count 19.8 x10^3/uL (4.0-11.0) 16.4 x10^3/uL (4.0-11.0) Red Blood Count 3.39 x10^6/uL (4.30-5.70) 3.39 x10^6/uL (4.30-5.70) Hemoglobin 11.2 g/dL (13.0-17.5) 11.1 g/dL (13.0-17.5) Hematocrit 32.7 % (39.0-53.0) 32.6 % (39.0-53.0) Mean Corpuscular Volume 96 fL (79-100) 96 fL (79-100) Mean Corpuscular Hemoglobin 33 pg (25-35) 33 pg (25-35) Mean Corpuscular Hemoglobin Concent 34 g/dL (31-37) 34 g/dL (31-37) Red Cell Distribution Width 12.6 % (11.5-14.5) 12.9 % (11.5-14.5) Platelet Count 521 x10^3/uL (140-400) 489 x10^3/uL (140-400) Neutrophils (%) (Auto) 72 % (31-73) 75 % (31-73) Lymphocytes (%) (Auto) 15 % (24-48) 11 % (24-48) Monocytes (%) (Auto) 12 % (0-9) 12 % (0-9) Eosinophils (%) (Auto) 1 % (0-3) 1 % (0-3) Basophils (%) (Auto) 1 % (0-3) 1 % (0-3) Neutrophils # (Auto) 14.3 x10^3uL (1.8-7.7) 12.3 x10^3uL (1.8-7.7) Lymphocytes # (Auto) 2.9 x10^3/uL (1.0-4.8) 1.8 x10^3/uL (1.0-4.8) Monocytes # (Auto) 2.4 x10^3/uL (0.0-1.1) 2.0 x10^3/uL (0.0-1.1) Eosinophils # (Auto) 0.1 x10^3/uL (0.0-0.7) 0.2 x10^3/uL (0.0-0.7) Basophils # (Auto) 0.1 x10^3/uL (0.0-0.2) 0.1 x10^3/uL (0.0-0.2) Segmented Neutrophils % 72 % (35-66) Band Neutrophils % 7 % (0-9) Lymphocytes % 13 % (24-48) Monocytes % 7 % (0-10) Eosinophils % 1 % (0-5) Platelet Estimate Increased (ADEQUATE) Erythrocyte Sedimentation Rate 96 (0-15) Sodium Level 134 mmol/L (136-145) 136 mmol/L (136-145) Potassium Level 3.7 mmol/L (3.5-5.1) 4.1 mmol/L (3.5-5.1) Chloride Level 96 mmol/L (98-107) 99 mmol/L (98-107) Carbon Dioxide Level 26 mmol/L (21-32) 25 mmol/L (21-32) Anion Gap 12 (6-14) 12 (6-14) Blood Urea Nitrogen 25 mg/dL (8-26) 17 mg/dL (8-26) Creatinine 1.3 mg/dL (0.7-1.3) 1.1 mg/dL (0.7-1.3) Estimated GFR (Cockcroft-Gault) 58.0 70.3 BUN/Creatinine Ratio 19 (6-20) 15 (6-20) Glucose Level 89 mg/dL (70-99) 88 mg/dL (70-99) Calcium Level 9.4 mg/dL (8.5-10.1) 8.7 mg/dL (8.5-10.1) Total Bilirubin 0.5 mg/dL (0.2-1.0) 0.9 mg/dL (0.2-1.0) Aspartate Amino Transf (AST/SGOT) 70 U/L (15-37) 103 U/L (15-37) Alanine Aminotransferase (ALT/SGPT) 111 U/L (16-63) 111 U/L (16-63) Alkaline Phosphatase 190 U/L (46-116) 211 U/L (46-116) C-Reactive Protein, Quantitative 189.4 mg/L (0-3.3) Total Protein 7.5 g/dL (6.4-8.2) 6.5 g/dL (6.4-8.2) Albumin 3.6 g/dL (3.4-5.0) 3.0 g/dL (3.4-5.0) Albumin/Globulin Ratio 0.9 (1.0-1.7) 0.9 (1.0-1.7) Laboratory Tests Test 01/18/17 15:40 01/19/17 06:00 White Blood Count 19.8 x10^3/uL (4.0-11.0) 16.4 x10^3/uL (4.0-11.0) Red Blood Count 3.39 x10^6/uL (4.30-5.70) 3.39 x10^6/uL (4.30-5.70) Hemoglobin 11.2 g/dL (13.0-17.5) 11.1 g/dL (13.0-17.5) Hematocrit 32.7 % (39.0-53.0) 32.6 % (39.0-53.0) Mean Corpuscular Volume 96 fL (79-100) 96 fL (79-100) Mean Corpuscular Hemoglobin 33 pg (25-35) 33 pg (25-35) Mean Corpuscular Hemoglobin Concent 34 g/dL (31-37) 34 g/dL (31-37) Red Cell Distribution Width 12.6 % (11.5-14.5) 12.9 % (11.5-14.5) Platelet Count 521 x10^3/uL (140-400) 489 x10^3/uL (140-400) Neutrophils (%) (Auto) 72 % (31-73) 75 % (31-73) Lymphocytes (%) (Auto) 15 % (24-48) 11 % (24-48) Monocytes (%) (Auto) 12 % (0-9) 12 % (0-9) Eosinophils (%) (Auto) 1 % (0-3) 1 % (0-3) Basophils (%) (Auto) 1 % (0-3) 1 % (0-3) Neutrophils # (Auto) 14.3 x10^3uL (1.8-7.7) 12.3 x10^3uL (1.8-7.7) Lymphocytes # (Auto) 2.9 x10^3/uL (1.0-4.8) 1.8 x10^3/uL (1.0-4.8) Monocytes # (Auto) 2.4 x10^3/uL (0.0-1.1) 2.0 x10^3/uL (0.0-1.1) Eosinophils # (Auto) 0.1 x10^3/uL (0.0-0.7) 0.2 x10^3/uL (0.0-0.7) Basophils # (Auto) 0.1 x10^3/uL (0.0-0.2) 0.1 x10^3/uL (0.0-0.2) Segmented Neutrophils % 72 % (35-66) Band Neutrophils % 7 % (0-9) Lymphocytes % 13 % (24-48) Monocytes % 7 % (0-10) Eosinophils % 1 % (0-5) Platelet Estimate Increased (ADEQUATE) Erythrocyte Sedimentation Rate 96 (0-15) Sodium Level 134 mmol/L (136-145) 136 mmol/L (136-145) Potassium Level 3.7 mmol/L (3.5-5.1) 4.1 mmol/L (3.5-5.1) Chloride Level 96 mmol/L (98-107) 99 mmol/L (98-107) Carbon Dioxide Level 26 mmol/L (21-32) 25 mmol/L (21-32) Anion Gap 12 (6-14) 12 (6-14) Blood Urea Nitrogen 25 mg/dL (8-26) 17 mg/dL (8-26) Creatinine 1.3 mg/dL (0.7-1.3) 1.1 mg/dL (0.7-1.3) Estimated GFR (Cockcroft-Gault) 58.0 70.3 BUN/Creatinine Ratio 19 (6-20) 15 (6-20) Glucose Level 89 mg/dL (70-99) 88 mg/dL (70-99) Calcium Level 9.4 mg/dL (8.5-10.1) 8.7 mg/dL (8.5-10.1) Total Bilirubin 0.5 mg/dL (0.2-1.0) 0.9 mg/dL (0.2-1.0) Aspartate Amino Transf (AST/SGOT) 70 U/L (15-37) 103 U/L (15-37) Alanine Aminotransferase (ALT/SGPT) 111 U/L (16-63) 111 U/L (16-63) Alkaline Phosphatase 190 U/L (46-116) 211 U/L (46-116) C-Reactive Protein, Quantitative 189.4 mg/L (0-3.3) Total Protein 7.5 g/dL (6.4-8.2) 6.5 g/dL (6.4-8.2) Albumin 3.6 g/dL (3.4-5.0) 3.0 g/dL (3.4-5.0) Albumin/Globulin Ratio 0.9 (1.0-1.7) 0.9 (1.0-1.7) VTE Prophylaxis Ordered VTE Prophylaxis Devices: Yes VTE Pharmacological Prophylaxi: Yes Assessment/Plan Assessment/Plan 1. right side darci rectal abscess s/p I and D on 01/19 2. liver and pancreatic mass found in CT 3. htn 5. depression 6. sepsis with 1 7. tobaccoism plan: fu with id, sx, gi ,onco consult zosyn, vanco for now, ivf, fu cx cont home meds dvt ppx pain control check [id number], CEA J CARLOS GUTIERREZ MD January 19, 2017 12:40
--- NOTE | 2017-01-19 12:52 | PDOC2 ---
CONSULT Date of Consult Date of Consult DATE: 01/19/17 TIME: 12:29 Reason for Consult Reason for Consult: Abnormal CT imaging Referring Physician Referring Physician: Dr. Segundo Source Source: Chart review, Patient History of Present Illness Reason for Visit: 51 y/o male who presented to ER with recurrent right perirectal abcess; he has since undergone I and D of this. On CT done before surgery, pancreatic and hepatic lesions were identified and we were asked to see re: these. No symptoms referable. Denies heartburn, dysphagia or prior proven PUD, though I gather may have some dyspeptic symptoms. S/p abby. No h/o liver disease, though mildly abnormal LFT's here (and on 2 occasions at [facility]). No pancreatic history. Smoker. Drank more heavily in the past, but now more of a "weekend warrior". Rare/occasional ASA or NSAID use. Denies diarrhea, constipation, hematochezia or melena. No nausea or vomiting. Wt/appetite OK. GI family history positive for PUD. No prior endoscopy of any kind. Initial perirectal abcess in February 2015--distal half of that year with debridements/wound vac. 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 All of this at [facility]. Past Medical History Cardiovascular: HTN Musculoskeletal: Osteoarthritis, Other (cervical fracture) Past Surgical History Past Surgical History: Appendectomy, Cholecystectomy, Other (fistulectomy/ drainage or perirectal abcess/ORIF cervical fracture) Family History Family History: Diabetes, Hypertension, Stroke Social History Social History Smokes ALCOHOL: rare Drugs: None Lives: with Family Current Problem List Problem List Problems Medical Problems: (1) Liver metastases Status: Acute (2) Pancreatic cancer Status: Acute (3) Rectal abscess Status: Acute Current Medications Current Medications Current Medications Iohexol (Omnipaque 300 Mg/ml) 75 ml 1X ONCE IV Last administered on 01/18/17t 17:28; Start 01/18/17 at 15:45; Stop 01/18/17 at 15:46; Status DC Iohexol (Omnipaque 240 Mg/ml) 30 ml 1X ONCE PO Last administered on 01/18/17t 15:45; Start 01/18/17 at 15:45; Stop 01/18/17 at 15:46; Status DC Info (Do NOT chart on this entry -- for MONITORING) 1 each PRN DAILY PRN MC SEE COMMENTS; Start 01/18/17 at 16:00; Stop 01/20/17 at 15:59 Fentanyl Citrate (Fentanyl 2ml Vial) 50 mcg 1X ONCE IV Last administered on 16:15; Start 01/18/17 at 16:15; Stop 01/18/17 at 16:16; Status DC Ondansetron HCl (Zofran) 4 mg 1X ONCE IV Last administered on 01/18/17 16:14 ; Start 01/18/17 at 16:15; Stop 01/18/17 at 16:16; Status DC Morphine Sulfate 5 mg 1X ONCE IV Last administered on 01/18/17 17:59; Start 01/18/17 at 18:15; Stop 01/18/17 at 18:16; Status DC Ondansetron HCl (Zofran) 4 mg PRN Q8HRS PRN IV NAUSEA/VOMITING; Start 01/18/17 at 21:15; Stop 01/19/17 at 21:14 Morphine Sulfate 4 mg PRN Q2HR PRN IV SEVERE PAIN Last administered on 04:13; Start 01/18/17 at 21:15; Stop 01/19/17 at 10:20; Status DC Acetaminophen (Tylenol) 650 mg PRN Q4HRS PRN PO FEVER Last administered on 01/18 22:13; Start 01/18/17 at 21:15; Stop 01/19/17 at 10:20; Status DC Sodium Chloride 1,000 ml @ 75 mls/hr [id number] IV Last administered on 11:23; Start 01/18/17 at 21:15 Metronidazole 100 ml @ 100 mls/hr Q8HRS IV Last administered on 01/19/17 06: 12; Start 01/18/17 at 22:00; Stop 01/19/17 at 10:00; Status DC Ciprofloxacin Lactate 200 ml @ 200 mls/hr Q12HR IV Last administered on 22:08; Start 01/18/17 at 22:00; Stop 01/19/17 at 10:00; Status DC Bupivacaine HCl/ Epinephrine Bitart (Sensorcain-Mpf Epi 0.5%-1:[id number]) 30 ml STK -MED ONCE .ROUTE Last administered on 01/19/17t 08:28; Start 01/19/17 at 07:02 ; Stop 01/19/17 at 07:03; Status DC Dexamethasone Sodium Phosphate (Decadron) 20 mg STK-MED ONCE .ROUTE ; Start at 07:27; Stop 01/19/17 at 07:28; Status DC Ondansetron HCl (Zofran) 4 mg STK-MED ONCE .ROUTE ; Start 01/19/17 at 07:27; Stop 01/19/17 at 07:28; Status DC Propofol 20 ml @ As Directed STK-MED ONCE IV ; Start 01/19/17 at 07:27; Stop at 07:28; Status DC Lidocaine HCl (Lidocaine Pf 2% Vial) 5 ml STK-MED ONCE .ROUTE ; Start 01/19/17 at 07:27; Stop 01/19/17 at 07:28; Status DC Fentanyl Citrate (Fentanyl 2ml Vial) 100 mcg STK-MED ONCE .ROUTE ; Start at 07:32; Stop 01/19/17 at 07:33; Status DC Ondansetron HCl (Zofran) 4 mg PRN Q6HRS PRN IV NAUSEA/VOMITING; Start 01/19/17 at 08:15; Stop 01/19/17 at 18:00 Fentanyl Citrate (Fentanyl 2ml Vial) 25 mcg PRN Q5MIN PRN IV MILD PAIN; Start 01/19/17 at 08:15; Stop 01/19/17 at 10:41; Status DC Fentanyl Citrate (Fentanyl 2ml Vial) 50 mcg PRN Q5MIN PRN IV MODERATE PAIN; Start 01/19/17 at 08:15; Stop 01/19/17 at 10:41; Status DC Morphine Sulfate 1 mg PRN Q10MIN PRN IV SEVERE PAIN; Start 01/19/17 at 08:15; Stop 01/19/17 at 10:41; Status DC Ringer's Solution 1,000 ml @ 30 mls/hr Q24H IV ; Start 01/19/17 at 08:02; Stop 01/19/17 at 10:35; Status DC Lidocaine HCl 2 ml PRN 1X PRN ID PRIOR TO IV START; Start 01/19/17 at 08:15; Stop 01/19/17 at 18:00 Hydromorphone HCl (Dilaudid) 0.5 mg PRN Q10MIN PRN IV SEV PAIN, Second choice; Start 01/19/17 at 08:15; Stop 01/19/17 at 10:41; Status DC Prochlorperazine Edisylate (Compazine) 5 mg PACU PRN PRN IV NAUSEA, MRX1; Start 01/19/17 at 08:15; Stop 01/19/17 at 10:41; Status DC Fentanyl Citrate (Fentanyl 2ml Vial) 100 mcg STK-MED ONCE .ROUTE ; Start at 08:31; Stop 01/19/17 at 08:32; Status DC Oxycodone/ Acetaminophen (Percocet 5/325) 1 tab PRN Q4HRS PRN PO PAIN; Start at 08:45 Oxycodone/ Acetaminophen (Percocet 5/325) 2 tab PRN Q4HRS PRN PO PAIN; Start at 08:45 Vancomycin HCl 2 gm/Sodium Chloride 500 ml @ 250 mls/hr 1X ONCE IV ; Start at 11:00; Stop 01/19/17 at 12:59 Vancomycin HCl (Vanco Per Pharmacy) 1 each PRN DAILY PRN MC SEE COMMENTS; Start 01/19/17 at 10:00 Piperacillin Sod/ Tazobactam Sod (Zosyn Per Pharmacy) 1 each PRN DAILY PRN MC SEE COMMENTS; Start 01/19/17 at 10:00 Piperacillin Sod/ Tazobactam Sod 3.375 gm/Sodium Chloride 100 ml @ 200 mls/hr Q6HRS IV Last administered on 01/19/17t 11:23; Start 01/19/17 at 11:00 Acetaminophen (Tylenol) 650 mg PRN Q6HRS PRN PO FEVER; Start 01/19/17 at 10:00 Ondansetron HCl (Zofran) 4 mg PRN Q6HRS PRN IV NAUSEA/VOMITING; Start 01/19/17 at 10:00 Morphine Sulfate 2 mg PRN Q2HR PRN IV PAIN; Start 01/19/17 at 10:00 Tramadol HCl (Ultram) 50 mg PRN Q6HRS PRN PO PAIN; Start 01/19/17 at 10:00 Hydralazine HCl (Apresoline) 10 mg PRN Q4HRS PRN IVP ELEVATED BP, SEE COMMENTS ; Start 01/19/17 at 10:00 Docusate Sodium (Colace) 100 mg PRN DAILY PRN PO CONSTIPATION; Start 01/19/17 at 10:00 Cyclobenzaprine HCl (Flexeril) 10 mg DAILY PO Last administered on 01/19/17 11 :20; Start 01/19/17 at 10:00 Gabapentin (Neurontin) 300 mg TID PO Last administered on 01/19/17 11:22; Start 01/19/17 at 10:00 Lisinopril (Prinivil) 20 mg DAILY PO Last administered on 01/19/17 11:21; Start 01/19/17 at 10:00 Meloxicam (Mobic) 15 mg DAILY PO Last administered on 01/19/17 11:22; Start at 10:00 Hydrochlorothiazide (Microzide) 12.5 mg DAILY PO Last administered on 11:21; Start 01/19/17 at 10:00 Active Scripts Active Reported Lisinopril-Hctz 20-12.5 Mg Tab (Lisinopril/Hydrochlorothiazide) 1 Each Tablet 1 Tab PO DAILY Cyclobenzaprine Hcl 10 Mg Tablet 10 Mg PO DAILY Gabapentin 300 Mg Capsule 300 Mg PO TID Meloxicam 15 Mg Tablet 15 Mg PO DAILY Allergies Allergies: Coded Allergies: No Known Drug Allergies (Unverified , 01/18/17) ROS Review of System 10-point review otherwise negative. Physical Exam General: Alert, Oriented X3, Cooperative, No acute distress Lungs: Clear to auscultation Heart: Regular rate, Normal S1, Normal S2, No murmurs Abdomen: Normal bowel sounds, Soft, No tenderness, No hepatosplenomegaly Extremities: No cyanosis, No edema Skin: No significant lesion Neuro: Normal speech, Strength at 5/5 X4 ext, Normal tone, Sensation intact, Cranial nerves 3-12 NL, Reflexes 2+ Psych/Mental Status: Mental status NL, Mood NL MUSCULOSKELETAL: No deformity, No swelling Vitals VITALS Vital Signs Date Time Temp Pulse Resp B/P (MAP) Pulse Ox O2 Delivery O2 Flow Rate FiO2 01/19/17 11:21 69 104/65 01/19/17 09:27 99.2 20 94 Room Air 99.2 01/19/17 08:57 8 Labs Labs Laboratory Tests Test 01/18/17 15:40 01/19/17 06:00 White Blood Count 19.8 x10^3/uL (4.0-11.0) 16.4 x10^3/uL (4.0-11.0) Red Blood Count 3.39 x10^6/uL (4.30-5.70) 3.39 x10^6/uL (4.30-5.70) Hemoglobin 11.2 g/dL (13.0-17.5) 11.1 g/dL (13.0-17.5) Hematocrit 32.7 % (39.0-53.0) 32.6 % (39.0-53.0) Mean Corpuscular Volume 96 fL (79-100) 96 fL (79-100) Mean Corpuscular Hemoglobin 33 pg (25-35) 33 pg (25-35) Mean Corpuscular Hemoglobin Concent 34 g/dL (31-37) 34 g/dL (31-37) Red Cell Distribution Width 12.6 % (11.5-14.5) 12.9 % (11.5-14.5) Platelet Count 521 x10^3/uL (140-400) 489 x10^3/uL (140-400) Neutrophils (%) (Auto) 72 % (31-73) 75 % (31-73) Lymphocytes (%) (Auto) 15 % (24-48) 11 % (24-48) Monocytes (%) (Auto) 12 % (0-9) 12 % (0-9) Eosinophils (%) (Auto) 1 % (0-3) 1 % (0-3) Basophils (%) (Auto) 1 % (0-3) 1 % (0-3) Neutrophils # (Auto) 14.3 x10^3uL (1.8-7.7) 12.3 x10^3uL (1.8-7.7) Lymphocytes # (Auto) 2.9 x10^3/uL (1.0-4.8) 1.8 x10^3/uL (1.0-4.8) Monocytes # (Auto) 2.4 x10^3/uL (0.0-1.1) 2.0 x10^3/uL (0.0-1.1) Eosinophils # (Auto) 0.1 x10^3/uL (0.0-0.7) 0.2 x10^3/uL (0.0-0.7) Basophils # (Auto) 0.1 x10^3/uL (0.0-0.2) 0.1 x10^3/uL (0.0-0.2) Segmented Neutrophils % 72 % (35-66) Band Neutrophils % 7 % (0-9) Lymphocytes % 13 % (24-48) Monocytes % 7 % (0-10) Eosinophils % 1 % (0-5) Platelet Estimate Increased (ADEQUATE) Erythrocyte Sedimentation Rate 96 (0-15) Sodium Level 134 mmol/L (136-145) 136 mmol/L (136-145) Potassium Level 3.7 mmol/L (3.5-5.1) 4.1 mmol/L (3.5-5.1) Chloride Level 96 mmol/L (98-107) 99 mmol/L (98-107) Carbon Dioxide Level 26 mmol/L (21-32) 25 mmol/L (21-32) Anion Gap 12 (6-14) 12 (6-14) Blood Urea Nitrogen 25 mg/dL (8-26) 17 mg/dL (8-26) Creatinine 1.3 mg/dL (0.7-1.3) 1.1 mg/dL (0.7-1.3) Estimated GFR (Cockcroft-Gault) 58.0 70.3 BUN/Creatinine Ratio 19 (6-20) 15 (6-20) Glucose Level 89 mg/dL (70-99) 88 mg/dL (70-99) Calcium Level 9.4 mg/dL (8.5-10.1) 8.7 mg/dL (8.5-10.1) Total Bilirubin 0.5 mg/dL (0.2-1.0) 0.9 mg/dL (0.2-1.0) Aspartate Amino Transf (AST/SGOT) 70 U/L (15-37) 103 U/L (15-37) Alanine Aminotransferase (ALT/SGPT) 111 U/L (16-63) 111 U/L (16-63) Alkaline Phosphatase 190 U/L (46-116) 211 U/L (46-116) C-Reactive Protein, Quantitative 189.4 mg/L (0-3.3) Total Protein 7.5 g/dL (6.4-8.2) 6.5 g/dL (6.4-8.2) Albumin 3.6 g/dL (3.4-5.0) 3.0 g/dL (3.4-5.0) Albumin/Globulin Ratio 0.9 (1.0-1.7) 0.9 (1.0-1.7) Laboratory Tests Test 01/18/17 15:40 01/19/17 06:00 White Blood Count 19.8 x10^3/uL (4.0-11.0) 16.4 x10^3/uL (4.0-11.0) Red Blood Count 3.39 x10^6/uL (4.30-5.70) 3.39 x10^6/uL (4.30-5.70) Hemoglobin 11.2 g/dL (13.0-17.5) 11.1 g/dL (13.0-17.5) Hematocrit 32.7 % (39.0-53.0) 32.6 % (39.0-53.0) Mean Corpuscular Volume 96 fL (79-100) 96 fL (79-100) Mean Corpuscular Hemoglobin 33 pg (25-35) 33 pg (25-35) Mean Corpuscular Hemoglobin Concent 34 g/dL (31-37) 34 g/dL (31-37) Red Cell Distribution Width 12.6 % (11.5-14.5) 12.9 % (11.5-14.5) Platelet Count 521 x10^3/uL (140-400) 489 x10^3/uL (140-400) Neutrophils (%) (Auto) 72 % (31-73) 75 % (31-73) Lymphocytes (%) (Auto) 15 % (24-48) 11 % (24-48) Monocytes (%) (Auto) 12 % (0-9) 12 % (0-9) Eosinophils (%) (Auto) 1 % (0-3) 1 % (0-3) Basophils (%) (Auto) 1 % (0-3) 1 % (0-3) Neutrophils # (Auto) 14.3 x10^3uL (1.8-7.7) 12.3 x10^3uL (1.8-7.7) Lymphocytes # (Auto) 2.9 x10^3/uL (1.0-4.8) 1.8 x10^3/uL (1.0-4.8) Monocytes # (Auto) 2.4 x10^3/uL (0.0-1.1) 2.0 x10^3/uL (0.0-1.1) Eosinophils # (Auto) 0.1 x10^3/uL (0.0-0.7) 0.2 x10^3/uL (0.0-0.7) Basophils # (Auto) 0.1 x10^3/uL (0.0-0.2) 0.1 x10^3/uL (0.0-0.2) Segmented Neutrophils % 72 % (35-66) Band Neutrophils % 7 % (0-9) Lymphocytes % 13 % (24-48) Monocytes % 7 % (0-10) Eosinophils % 1 % (0-5) Platelet Estimate Increased (ADEQUATE) Erythrocyte Sedimentation Rate 96 (0-15) Sodium Level 134 mmol/L (136-145) 136 mmol/L (136-145) Potassium Level 3.7 mmol/L (3.5-5.1) 4.1 mmol/L (3.5-5.1) Chloride Level 96 mmol/L (98-107) 99 mmol/L (98-107) Carbon Dioxide Level 26 mmol/L (21-32) 25 mmol/L (21-32) Anion Gap 12 (6-14) 12 (6-14) Blood Urea Nitrogen 25 mg/dL (8-26) 17 mg/dL (8-26) Creatinine 1.3 mg/dL (0.7-1.3) 1.1 mg/dL (0.7-1.3) Estimated GFR (Cockcroft-Gault) 58.0 70.3 BUN/Creatinine Ratio 19 (6-20) 15 (6-20) Glucose Level 89 mg/dL (70-99) 88 mg/dL (70-99) Calcium Level 9.4 mg/dL (8.5-10.1) 8.7 mg/dL (8.5-10.1) Total Bilirubin 0.5 mg/dL (0.2-1.0) 0.9 mg/dL (0.2-1.0) Aspartate Amino Transf (AST/SGOT) 70 U/L (15-37) 103 U/L (15-37) Alanine Aminotransferase (ALT/SGPT) 111 U/L (16-63) 111 U/L (16-63) Alkaline Phosphatase 190 U/L (46-116) 211 U/L (46-116) C-Reactive Protein, Quantitative 189.4 mg/L (0-3.3) Total Protein 7.5 g/dL (6.4-8.2) 6.5 g/dL (6.4-8.2) Albumin 3.6 g/dL (3.4-5.0) 3.0 g/dL (3.4-5.0) Albumin/Globulin Ratio 0.9 (1.0-1.7) 0.9 (1.0-1.7) Mildly elevated LFT's. Mild normocytic anemia. Elevated CRP. Images Images ON CT: Impression: 1. There is abnormal fluid collection/abscess of the medial right buttock soft tissues with no discernible fat plane between the adjacent anus which is deviated to the left. 2. There are multiple hypodense foci in the liver not seen on 2009 exam concerning for metastatic disease, abscesses less likely. 3. There is now small hypodense mass with calcification of the uncinate process of the pancreas concerning for possible pancreatic malignancy. Portacaval node is larger with effacement of fat and contact of the right aspect of the celiac artery. 4. There is severe distention of the urinary bladder. As I view the study, the liver lesions seem almost cystic, not solid as we's expect with typical adenoCa mets. Calcification in typical pancreatic cancer would be unusual I would think. Assessment/Plan Assessment/Plan IMP: 1. Pancreatic lesion, nature unclear. Serous cystadenomas (benign) can have central calcification. Mucinous cystadenomas have a greater risk of malignancy. As mentioned above, appearance not typical for usual ductal adenocarcinoma and w/o duct dilatation, not IMPN. 2. Hepatic lesions--unclear these are necessarily metastatic. 3. Elevated LFT's. Pattern not suggestive of pure alcohol effect and present on labs over past 2 years or so. Consider more chronic issue such as chronic viral hepatitis. 4. Recurrent perirectal abcesses. Reasons for this unclear. No signs , symptoms of IBD, particularly Crohn's. Elevated CRP likely from abcess. REC: CA 19-9 Hepatitis serologies, iron studies. Consider re-imaging with MRI Continue post-op care. Other pending. Thank you for allowing me to assist in the care of this patient. Please call if questions. CULLEN MERCADO MD January 19, 2017 12:52
[2017-01-19] MEDS: VANCOMYCIN PER PHARMACY MC PRN (13:20)
[2017-01-19 17:01] LABS: % SAT IRON 12 % (15-34); IRON,SERUM 18 ug/dL (65-175)
[2017-01-19] MEDS: IV NORMAL SALINE 500ML BAG 500 ML IV PRN (20:59)
[2017-01-20] MEDS: PIPERACILLIN/TAZOBACTAM 3.375 GM in IV NORMAL SALINE 100ML 100 ML IV SCH ×5 (00:05→23:28)
--- NOTE | 2017-01-20 00:14 | ACF ---
Admit Criteria Forms Admit Criteria Forms Admit Criteria Forms SKIN AND WOUND CARE Clinical Indications for Inpatient Care (Place 'X' for any and all applicable criteria): Ongoing inpatient care may be indicated for pressure, venous, arterial, or neuropathic ulcers, with ANY ONE of the following (2)(3)(8)(9)(21)(25): [X ]I. Need for ANY ONE of the following(26) [ ]a) Pressure ulcer closure procedures [ ]b) Skin grafting [ ]c) Wound debridement [ ]d) Dressing change under general anesthesia [ ]e) Arterial revascularization procedures(19) (Also use Aortofemoral or Aortoiliac Bypass or Femoral Popliteal Bypass Criteria as appropriate) [ ]f) Amputation (Also use Foot: Transmetatarsal Amputation or Knee: Amputation Above or Below Knee Criteria as appropriate) [ ]g) Diverting colostomy [X ]h) Other significant surgical treatment [ ]II. Infection requiring inpatient care as indicated by ALL of the following( 27) [ ]a) ANY ONE of the following signs of infection: [ ]i) Poorly approximated incision line. [ ]ii) Excessive drainage [ ]iii) Foul odor [ ]iv) Pus [ ]v) Increased redness [ ]vi) Breakdown in tissue after suture removal [ ]vii) Fever [ ]b) ANY ONE of the following findings: [ ]i) Mental status changes [ ]ii) Dehydration [ ]iii) Bacteremia [ ]iv) Perineal infection [ ]v) Hemodynamic instability [ ]vi) High-risk conditions, such as ANY ONE of the following: [ ]1) Poorly controlled diabetes [ ]2) Cirrhosis [ ]3) Neutropenia [ ]4) Asplenia [ ]5) HIV infection [ ]6) Immunosuppression Extended stay beyond goal length of stay for primary condition may be needed until ALL of the following are present(1)(2)(13)(21)(27): [ ]a) Tissue necrosis absent or treatment plan manageable at lower level of care [ ]b) Fistulas, tunneling, or underlying deep tissue infection absent or treated [ ]c) Purulence and tissue breakdown absent or improved [ ]d) Ulcer surgical repair absent or healing without complications [ ]e) Wound infection absent or manageable at lower level of care [ ]f) Comorbidities absent or manageable at lower level of care The original [employer]ika [employer] content created by Tamika Morris has been revised. The portions of the content which have been revised are identified through the use of italic text or in bold, and Tamika Morris has neither reviewed nor approved the modified material. All other unmodified content is copyright Tamika Morris. Please see references footnoted in the original Tamika Morris edition 2016 [place] January 20, 2017 00:14
--- NOTE | 2017-01-20 00:45 | CONS ---
DATE OF CONSULTATION: 01/19/2017 REFERRING PHYSICIAN: Dr. Segundo. REASON FOR CONSULTATION: Rectal abscess. HISTORY OF PRESENT ILLNESS: This patient is a 51-year-old male with a 2-week history of worsening pressure like rectal pain associated with difficulty urinating and stooling. He felt symptoms were similar to previous rectal fistula, status post repair a few years ago. Denies fevers, chills, nausea, vomiting or abdominal pain. He was found to have a white blood cell count of 19,800. CT showed asymmetric hazy and strandy changes with a 4.2 x 3.7 x 5.2 fluid collection, medial right gluteal subcutaneous fat. He was taken to the OR earlier this morning and underwent an I and D. Purulent material was expressed. Intraoperative cultures in process. He is on vancomycin and piperacillin/tazobactam. ID has been asked to consult for further antibiotic management. PAST MEDICAL HISTORY: Hypertension, hemorrhoids, arthritis. PAST SURGICAL HISTORY: Appendectomy, cholecystectomy, rectal fistula, status post fistulectomy. Neck fracture, status post repair with hardware. SOCIAL HISTORY: The patient is single. 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 He is a current smoker. He drinks about a 6-pack of beer anywhere from 1-5 times a week depending on his workday stress. FAMILY HISTORY: Positive for diabetes and heart disease. His maternal uncle had an unknown type of cancer. ALLERGIES: No known drug allergies. MEDICATIONS: Vancomycin, piperacillin/tazobactam. Other medications are available and have been reviewed on the OCT. REVIEW OF SYSTEMS: The patient ____, otherwise doing okay. He ate all his lunch. He was having trouble urinating prior to admission and now has an indwelling Kunz catheter. Denies headache, nasal/sinus congestion or sore throat. Denies shortness of air, cough or wheezing. Denies chest pain, palpitations or swelling. Denies rash. Denies muscle aches or joint pains. Denies significant weight changes or loss of appetite. PHYSICAL EXAMINATION: GENERAL: male, lying down, in no apparent distress. VITAL SIGNS: Temperature is 99.2, T-max 100.7, blood pressure 104/65, heart rate 69, respiratory rate 20, pulse oximetry is 94% on room air. Weight is 198 pounds. HEENT: Pupils equally round and reactive. Normal conjunctivae. Oral mucosa is pink and moist. No lesions seen. NECK: Supple, no adenopathy present. LUNGS: Clear to auscultation bilaterally. HEART: Normal S1 and S2. No murmur appreciated. ABDOMEN: Nondistended. Bowel sounds are present, soft, nontender. GENITOURINARY: He has an indwelling Kunz in place. EXTREMITIES: No gross edema or cyanosis. SKIN: Without rash. He has a perirectal surgical wound with packing. The area is indurated and tender. NEUROLOGIC: Alert and oriented x 3. No focal deficits appreciated. LABORATORY DATA: Today's WBC 16.4, hemoglobin 11.1, platelet count 489,000, sed rate 96. Electrolytes are unremarkable. Creatinine 1.1, BUN 17, glucose 88, total bilirubin 0.9, AST 103, ALT 111, alkaline phosphatase 211. CRP 189.4, albumin 3.0. Anaerobic-aerobic cultures pending. Abdominal/pelvis CT, in addition to what was mentioned in HPI, multiple hypodense foci in the liver seen concerning for metastatic disease as well as a small hypodense mass with calcification ____ concerning for possible pancreatic malignancy; and severe distention of the urinary bladder. IMPRESSION: 1. Perirectal abscess, status post I and D 01/19/2017. 2. Fever. 3. Leukocytosis. 4. Pancreatic mass with possible liver metastasis. 5. Urinary retention requiring indwelling Kunz. PLAN: Continue the vancomycin and piperacillin/tazobactam for now. Await intraoperative cultures. May need to consider Oncology evaluation. Discussed with patient's mother. Thank you, Dr. Segundo for asking us to participate in this patient's care. Should you have further questions or concerns, please call. ZULY HANNA MD DR: JAMAR/florentin JOB#: [id number] / [id number]
[2017-01-20] MEDS: VANCOMYCIN 1.5 GM in IV NORMAL SALINE 500ML BAG 500 ML IV SCH ×2 (00:48→12:19)
[2017-01-20] MEDS: IV NORMAL SALINE 500ML BAG 500 ML IV PRN (00:50)
[2017-01-20 02:57] VITALS: BP 96/60
[2017-01-20] MEDS: IV NORMAL SALINE 1000ML BAG 1,000 ML IV SCH ×2 (03:53→14:21)
[2017-01-20 04:33] LABS: BASO % 0 % (0-3); EOS % 1 % (0-3); HEMATOCRIT 30.5 % (39.0-53.0); HEMOGLOBIN 10.3 g/dL (13.0-17.5); LYMPH # 2.1 x10^3/uL (1.0-4.8); LYMPH % 16 % (24-48); MEAN CORPUSCULAR HEMOGLOBIN 32 pg (25-35); MEAN CORPUSCULAR HGB CONC 34 g/dL (31-37); MEAN CORPUSCULAR VOLUME 96 fL (79-100); MONO % 10 % (0-9); NEUT % 74 % (31-73); PLATELET COUNT 528 x10^3/uL (140-400); RED BLOOD COUNT 3.18 x10^6/uL (4.30-5.70); RED CELL DISTRIBUTION WIDTH 12.9 % (11.5-14.5); WHITE BLOOD COUNT 13.5 x10^3/uL (4.0-11.0)
[2017-01-20 04:36] LABS: CALCIUM 8.1 mg/dL (8.5-10.1); GFR 78.5
[2017-01-20 07:00] VITALS: BP 113/67
[2017-01-20] MEDS: hydroCHLOROthiazide 12.5 MG CAPSULE PO SCH (08:21)
[2017-01-20] MEDS: CYCLOBENZAPRINE 10 MG TABLET. PO SCH (08:21)
[2017-01-20] MEDS: LISINOPRIL 20 MG TABLET PO SCH (08:21)
[2017-01-20] MEDS: MELOXICAM 7.5 MG TABLET PO SCH (08:22)
[2017-01-20] MEDS: GABAPENTIN 300 MG CAPSULE. PO SCH ×3 (08:22→20:25)
--- NOTE | 2017-01-20 09:24 | PDOC ---
G I PROGRESS NOTE Subjective Had a stool. No complaints. Physical Exam Lungs clear. RRR Abdomen soft, not tender nor distended. Review of Relevant I have reviewed the following items shante (where applicable) has been applied. Labs Laboratory Tests Test 01/18/17 15:40 01/19/17 06:00 01/19/17 16:20 01/20/17 03:52 White Blood Count 19.8 x10^3/uL (4.0-11.0) 16.4 x10^3/uL (4.0-11.0) 13.5 x10^3/uL (4.0-11.0) Red Blood Count 3.39 x10^6/uL (4.30-5.70) 3.39 x10^6/uL (4.30-5.70) 3.18 x10^6/uL (4.30-5.70) Hemoglobin 11.2 g/dL (13.0-17.5) 11.1 g/dL (13.0-17.5) 10.3 g/dL (13.0-17.5) Hematocrit 32.7 % (39.0-53.0) 32.6 % (39.0-53.0) 30.5 % (39.0-53.0) Mean Corpuscular Volume 96 fL (79-100) 96 fL (79-100) 96 fL (79-100) Mean Corpuscular Hemoglobin 33 pg (25-35) 33 pg (25-35) 32 pg (25-35) Mean Corpuscular Hemoglobin Concent 34 g/dL (31-37) 34 g/dL (31-37) 34 g/dL (31-37) Red Cell Distribution Width 12.6 % (11.5-14.5) 12.9 % (11.5-14.5) 12.9 % (11.5-14.5) Platelet Count 521 x10^3/uL (140-400) 489 x10^3/uL (140-400) 528 x10^3/uL (140-400) Neutrophils (%) (Auto) 72 % (31-73) 75 % (31-73) 74 % (31-73) Lymphocytes (%) (Auto) 15 % (24-48) 11 % (24-48) 16 % (24-48) Monocytes (%) (Auto) 12 % (0-9) 12 % (0-9) 10 % (0-9) Eosinophils (%) (Auto) 1 % (0-3) 1 % (0-3) 1 % (0-3) Basophils (%) (Auto) 1 % (0-3) 1 % (0-3) 0 % (0-3) Neutrophils # (Auto) 14.3 x10^3uL (1.8-7.7) 12.3 x10^3uL (1.8-7.7) 10.0 x10^3uL (1.8-7.7) Lymphocytes # (Auto) 2.9 x10^3/uL (1.0-4.8) 1.8 x10^3/uL (1.0-4.8) 2.1 x10^3/uL (1.0-4.8) Monocytes # (Auto) 2.4 x10^3/uL (0.0-1.1) 2.0 x10^3/uL (0.0-1.1) 1.3 x10^3/uL (0.0-1.1) Eosinophils # (Auto) 0.1 x10^3/uL (0.0-0.7) 0.2 x10^3/uL (0.0-0.7) 0.1 x10^3/uL (0.0-0.7) Basophils # (Auto) 0.1 x10^3/uL (0.0-0.2) 0.1 x10^3/uL (0.0-0.2) 0.0 x10^3/uL (0.0-0.2) Segmented Neutrophils % 72 % (35-66) Band Neutrophils % 7 % (0-9) Lymphocytes % 13 % (24-48) Monocytes % 7 % (0-10) Eosinophils % 1 % (0-5) Platelet Estimate Increased (ADEQUATE) Erythrocyte Sedimentation Rate 96 (0-15) Sodium Level 134 mmol/L (136-145) 136 mmol/L (136-145) 141 mmol/L (136-145) Potassium Level 3.7 mmol/L (3.5-5.1) 4.1 mmol/L (3.5-5.1) 4.0 mmol/L (3.5-5.1) Chloride Level 96 mmol/L (98-107) 99 mmol/L (98-107) 107 mmol/L (98-107) Carbon Dioxide Level 26 mmol/L (21-32) 25 mmol/L (21-32) 26 mmol/L (21-32) Anion Gap 12 (6-14) 12 (6-14) 8 (6-14) Blood Urea Nitrogen 25 mg/dL (8-26) 17 mg/dL (8-26) 16 mg/dL (8-26) Creatinine 1.3 mg/dL (0.7-1.3) 1.1 mg/dL (0.7-1.3) 1.0 mg/dL (0.7-1.3) Estimated GFR (Cockcroft-Gault) 58.0 70.3 78.5 BUN/Creatinine Ratio 19 (6-20) 15 (6-20) Glucose Level 89 mg/dL (70-99) 88 mg/dL (70-99) 122 mg/dL (70-99) Calcium Level 9.4 mg/dL (8.5-10.1) 8.7 mg/dL (8.5-10.1) 8.1 mg/dL (8.5-10.1) Total Bilirubin 0.5 mg/dL (0.2-1.0) 0.9 mg/dL (0.2-1.0) Aspartate Amino Transf (AST/SGOT) 70 U/L (15-37) 103 U/L (15-37) Alanine Aminotransferase (ALT/SGPT) 111 U/L (16-63) 111 U/L (16-63) Alkaline Phosphatase 190 U/L (46-116) 211 U/L (46-116) C-Reactive Protein, Quantitative 189.4 mg/L (0-3.3) Total Protein 7.5 g/dL (6.4-8.2) 6.5 g/dL (6.4-8.2) Albumin 3.6 g/dL (3.4-5.0) 3.0 g/dL (3.4-5.0) Albumin/Globulin Ratio 0.9 (1.0-1.7) 0.9 (1.0-1.7) Iron Level 18 ug/dL (65-175) Total Iron Binding Capacity 155 ug/dL (250-450) Iron Saturation 12 % (15-34) Laboratory Tests Test 01/19/17 16:20 01/20/17 03:52 Iron Level 18 ug/dL (65-175) Total Iron Binding Capacity 155 ug/dL (250-450) Iron Saturation 12 % (15-34) White Blood Count 13.5 x10^3/uL (4.0-11.0) Red Blood Count 3.18 x10^6/uL (4.30-5.70) Hemoglobin 10.3 g/dL (13.0-17.5) Hematocrit 30.5 % (39.0-53.0) Mean Corpuscular Volume 96 fL (79-100) Mean Corpuscular Hemoglobin 32 pg (25-35) Mean Corpuscular Hemoglobin Concent 34 g/dL (31-37) Red Cell Distribution Width 12.9 % (11.5-14.5) Platelet Count 528 x10^3/uL (140-400) Neutrophils (%) (Auto) 74 % (31-73) Lymphocytes (%) (Auto) 16 % (24-48) Monocytes (%) (Auto) 10 % (0-9) Eosinophils (%) (Auto) 1 % (0-3) Basophils (%) (Auto) 0 % (0-3) Neutrophils # (Auto) 10.0 x10^3uL (1.8-7.7) Lymphocytes # (Auto) 2.1 x10^3/uL (1.0-4.8) Monocytes # (Auto) 1.3 x10^3/uL (0.0-1.1) Eosinophils # (Auto) 0.1 x10^3/uL (0.0-0.7) Basophils # (Auto) 0.0 x10^3/uL (0.0-0.2) Sodium Level 141 mmol/L (136-145) Potassium Level 4.0 mmol/L (3.5-5.1) Chloride Level 107 mmol/L (98-107) Carbon Dioxide Level 26 mmol/L (21-32) Anion Gap 8 (6-14) Blood Urea Nitrogen 16 mg/dL (8-26) Creatinine 1.0 mg/dL (0.7-1.3) Estimated GFR (Cockcroft-Gault) 78.5 Glucose Level 122 mg/dL (70-99) Calcium Level 8.1 mg/dL (8.5-10.1) Microbiology 01/19/17 Gram Stain - Final, Complete CA 19-9 pending. Interesting he's iron-deficient. Medications Current Medications Iohexol (Omnipaque 300 Mg/ml) 75 ml 1X ONCE IV Last administered on 01/18/17 17:28; Start 01/18/17 at 15:45; Stop 01/18/17 at 15:46; Status DC Iohexol (Omnipaque 240 Mg/ml) 30 ml 1X ONCE PO Last administered on 01/18/17 15:45; Start 01/18/17 at 15:45; Stop 01/18/17 at 15:46; Status DC Info (Do NOT chart on this entry -- for MONITORING) 1 each PRN DAILY PRN MC SEE COMMENTS; Start 01/18/17 at 16:00; Stop 01/20/17 at 15:59 Fentanyl Citrate (Fentanyl 2ml Vial) 50 mcg 1X ONCE IV Last administered on 16:15; Start 01/18/17 at 16:15; Stop 01/18/17 at 16:16; Status DC Ondansetron HCl (Zofran) 4 mg 1X ONCE IV Last administered on 01/18/17 16:14 ; Start 01/18/17 at 16:15; Stop 01/18/17 at 16:16; Status DC Morphine Sulfate 5 mg 1X ONCE IV Last administered on 01/18/17 17:59; Start 01/18/17 at 18:15; Stop 01/18/17 at 18:16; Status DC Ondansetron HCl (Zofran) 4 mg PRN Q8HRS PRN IV NAUSEA/VOMITING; Start 01/18/17 at 21:15; Stop 01/19/17 at 21:14; Status DC Morphine Sulfate 4 mg PRN Q2HR PRN IV SEVERE PAIN Last administered on 04:13; Start 01/18/17 at 21:15; Stop 01/19/17 at 10:20; Status DC Acetaminophen (Tylenol) 650 mg PRN Q4HRS PRN PO FEVER Last administered on 01/18 22:13; Start 01/18/17 at 21:15; Stop 01/19/17 at 10:20; Status DC Sodium Chloride 1,000 ml @ 75 mls/hr [id number] IV Last administered on 03:53; Start 01/18/17 at 21:15 Metronidazole 100 ml @ 100 mls/hr Q8HRS IV Last administered on 01/19/17 06: 12; Start 01/18/17 at 22:00; Stop 01/19/17 at 10:00; Status DC Ciprofloxacin Lactate 200 ml @ 200 mls/hr Q12HR IV Last administered on 22:08; Start 01/18/17 at 22:00; Stop 01/19/17 at 10:00; Status DC Bupivacaine HCl/ Epinephrine Bitart (Sensorcain-Mpf Epi 0.5%-[id number]) 30 ml STK -MED ONCE .ROUTE Last administered on 01/19/17 08:28; Start 01/19/17 at 07:02 ; Stop 01/19/17 at 07:03; Status DC Dexamethasone Sodium Phosphate (Decadron) 20 mg STK-MED ONCE .ROUTE ; Start at 07:27; Stop 01/19/17 at 07:28; Status DC Ondansetron HCl (Zofran) 4 mg STK-MED ONCE .ROUTE ; Start 01/19/17 at 07:27; Stop 01/19/17 at 07:28; Status DC Propofol 20 ml @ As Directed STK-MED ONCE IV ; Start 01/19/17 at 07:27; Stop at 07:28; Status DC Lidocaine HCl (Lidocaine Pf 2% Vial) 5 ml STK-MED ONCE .ROUTE ; Start 01/19/17 at 07:27; Stop 01/19/17 at 07:28; Status DC Fentanyl Citrate (Fentanyl 2ml Vial) 100 mcg STK-MED ONCE .ROUTE ; Start at 07:32; Stop 01/19/17 at 07:33; Status DC Ondansetron HCl (Zofran) 4 mg PRN Q6HRS PRN IV NAUSEA/VOMITING; Start 01/19/17 at 08:15; Stop 01/19/17 at 18:00; Status DC Fentanyl Citrate (Fentanyl 2ml Vial) 25 mcg PRN Q5MIN PRN IV MILD PAIN; Start 01/19/17 at 08:15; Stop 01/19/17 at 10:41; Status DC Fentanyl Citrate (Fentanyl 2ml Vial) 50 mcg PRN Q5MIN PRN IV MODERATE PAIN; Start 01/19/17 at 08:15; Stop 01/19/17 at 10:41; Status DC Morphine Sulfate 1 mg PRN Q10MIN PRN IV SEVERE PAIN; Start 01/19/17 at 08:15; Stop 01/19/17 at 10:41; Status DC Ringer's Solution 1,000 ml @ 30 mls/hr Q24H IV ; Start 01/19/17 at 08:02; Stop 01/19/17 at 10:35; Status DC Lidocaine HCl 2 ml PRN 1X PRN ID PRIOR TO IV START; Start 01/19/17 at 08:15; Stop 01/19/17 at 18:00; Status DC Hydromorphone HCl (Dilaudid) 0.5 mg PRN Q10MIN PRN IV SEV PAIN, Second choice; Start 01/19/17 at 08:15; Stop 01/19/17 at 10:41; Status DC Prochlorperazine Edisylate (Compazine) 5 mg PACU PRN PRN IV NAUSEA, MRX1; Start 01/19/17 at 08:15; Stop 01/19/17 at 10:41; Status DC Fentanyl Citrate (Fentanyl 2ml Vial) 100 mcg STK-MED ONCE .ROUTE ; Start at 08:31; Stop 01/19/17 at 08:32; Status DC Oxycodone/ Acetaminophen (Percocet 5/325) 1 tab PRN Q4HRS PRN PO PAIN; Start at 08:45 Oxycodone/ Acetaminophen (Percocet 5/325) 2 tab PRN Q4HRS PRN PO PAIN; Start at 08:45 Vancomycin HCl 2 gm/Sodium Chloride 500 ml @ 250 mls/hr 1X ONCE IV Last administered on 01/19/17t 12:30; Start 01/19/17 at 11:00; Stop 01/19/17 at 12:59 ; Status DC Vancomycin HCl (Vanco Per Pharmacy) 1 each PRN DAILY PRN MC SEE COMMENTS Last administered on 01/19/17 13:20; Start 01/19/17 at 10:00 Piperacillin Sod/ Tazobactam Sod (Zosyn Per Pharmacy) 1 each PRN DAILY PRN MC SEE COMMENTS; Start 01/19/17 at 10:00 Piperacillin Sod/ Tazobactam Sod 3.375 gm/Sodium Chloride 100 ml @ 200 mls/hr Q6HRS IV Last administered on 01/20/17 05:15; Start 01/19/17 at 11:00 Acetaminophen (Tylenol) 650 mg PRN Q6HRS PRN PO FEVER; Start 01/19/17 at 10:00 Ondansetron HCl (Zofran) 4 mg PRN Q6HRS PRN IV NAUSEA/VOMITING; Start 01/19/17 at 10:00 Morphine Sulfate 2 mg PRN Q2HR PRN IV PAIN; Start 01/19/17 at 10:00 Tramadol HCl (Ultram) 50 mg PRN Q6HRS PRN PO PAIN; Start 01/19/17 at 10:00 Hydralazine HCl (Apresoline) 10 mg PRN Q4HRS PRN IVP ELEVATED BP, SEE COMMENTS ; Start 01/19/17 at 10:00 Docusate Sodium (Colace) 100 mg PRN DAILY PRN PO CONSTIPATION Last administered on 01/19/17 16:12; Start 01/19/17 at 10:00 Cyclobenzaprine HCl (Flexeril) 10 mg DAILY PO Last administered on 01/20/17 08 :21; Start 01/19/17 at 10:00 Gabapentin (Neurontin) 300 mg TID PO Last administered on 01/20/17 08:22; Start 01/19/17 at 10:00 Lisinopril (Prinivil) 20 mg DAILY PO Last administered on 01/19/17 11:21; Start 01/19/17 at 10:00 Meloxicam (Mobic) 15 mg DAILY PO Last administered on 01/20/17 08:22; Start at 10:00 Hydrochlorothiazide (Microzide) 12.5 mg DAILY PO Last administered on 11:21; Start 01/19/17 at 10:00 Enoxaparin Sodium (Lovenox 40mg Syringe) 40 mg Q24H SQ ; Start 01/20/17 at 10:00 Vancomycin HCl 1.5 gm/Sodium Chloride 500 ml @ 250 mls/hr Q12H IV Last administered on 01/20/17 00:48; Start 01/20/17 at 00:00 Vancomycin HCl 1 each 1X ONCE MC ; Start 01/20/17 at 23:30; Stop 01/20/17 at 23 :31 Sodium Chloride 500 ml @ 500 mls/hr PRN Q3HRS PRN IV BP at 90 or below, max 2 doses Last administered on 01/20/17 00:50; Start 01/19/17 at 20:15; Stop at 00:50; Status DC Active Scripts Active Reported Lisinopril-Hctz 20-12.5 Mg Tab (Lisinopril/Hydrochlorothiazide) 1 Each Tablet 1 Tab PO DAILY Cyclobenzaprine Hcl 10 Mg Tablet 10 Mg PO DAILY Gabapentin 300 Mg Capsule 300 Mg PO TID Meloxicam 15 Mg Tablet 15 Mg PO DAILY Vitals/I & O Vital Sign - Last 24 Hours 01/19/17 01/19/17 01/19/17 01/19/17 09:27 10:00 10:15 10:35 Temp 99.2 97.6 97.8 97.7 99.2 97.6 97.8 97.7 Pulse 69 64 65 60 Resp 20 18 20 20 B/P (MAP) 104/65 98/63 (75) 90/60 (70) 93/61 (72) Pulse Ox 94 91 92 92 O2 Delivery Room Air Room Air Room Air Room Air 01/19/17 01/19/17 01/19/17 01/19/17 11:00 11:21 11:30 15:48 Temp 97.8 97.5 97.7 97.8 97.5 97.7 Pulse 68 69 68 56 Resp 18 18 18 B/P (MAP) 96/61 (73) 104/65 86/54 (65) 86/57 (67) Pulse Ox 91 91 95 O2 Delivery Room Air Room Air Room Air 01/19/17 01/19/17 01/19/17 01/20/17 19:00 20:00 23:00 02:57 Temp 96.8 97.5 96.6 96.8 97.5 96.6 Pulse 63 59 60 Resp 18 18 18 B/P (MAP) 92/54 (67) 96/64 (75) 96/60 (72) Pulse Ox 96 98 96 O2 Delivery Room Air Room Air Room Air Room Air 01/20/17 07:00 Temp 96.6 96.6 Pulse 50 Resp 16 B/P (MAP) 113/67 (82) Pulse Ox 99 O2 Delivery Room Air Intake and Output 01/19/17 01/19/17 01/20/17 15:00 23:00 07:00 Intake Total 1220 ml 1268 ml 1100 ml Output Total 30 ml 850 ml 1800 ml Balance 1190 ml 418 ml -700 ml Problem List Problems Medical Problems: (1) Liver metastases Status: Acute (2) Pancreatic cancer Status: Acute (3) Rectal abscess Status: Acute Assessment Recurrent perirectal abcess; underlying IBD? Crohn's patients are often iron- deficient. Needs endoscopic w/u at some point; now is probably not a good time. Pancreatic/hepatic lesions--unclearly malignant Plan of Care: Continue current Tx, Mgmt Plan of Care Note Will ask IR to consider needling one of the hepatic lesions. Await CA 19-9. CULLEN MERCADO MD January 20, 2017 09:24
--- NOTE | 2017-01-20 09:58 | PDOC ---
Infectious Disease Note Subjective Subjective Comfortable, denies pain + BM, without difficulty Appetite good Mother present, no concerns voiced at this time. ROS ROS GEN: Denies fevers, chills, sweats CV: Denies chest pain RESP: Denies shortness of air, cough GI: Denies n/v/d Vital Sign Vital Signs Vital Signs Date Time Temp Pulse Resp B/P (MAP) Pulse Ox O2 Delivery O2 Flow Rate FiO2 01/20/17 07:00 96.6 50 16 113/67 (82) 99 Room Air 96.6 01/19/17 08:57 8 Physical Exam PHYSICAL EXAM GENERAL: Propped up in bed, watching TV HEENT: Oral cavity dry LUNGS: Clear to auscultation bilaterally. HEART: Normal S1 and S2. No murmur appreciated. ABDOMEN: Nondistended. Bowel sounds are present, soft, nontender. : Kunz in place EXTREMITIES: No gross edema or cyanosis. SKIN: Without rash. He has a perirectal surgical wound with packing in place, some bleeding, less induration. No redness. NEUROLOGIC: Alert and oriented x 3. No focal deficits appreciated. Peripheral IV: ok Labs Lab Laboratory Tests Test 01/19/17 16:20 01/20/17 03:52 Iron Level 18 ug/dL (65-175) Total Iron Binding Capacity 155 ug/dL (250-450) Iron Saturation 12 % (15-34) White Blood Count 13.5 x10^3/uL (4.0-11.0) Red Blood Count 3.18 x10^6/uL (4.30-5.70) Hemoglobin 10.3 g/dL (13.0-17.5) Hematocrit 30.5 % (39.0-53.0) Mean Corpuscular Volume 96 fL (79-100) Mean Corpuscular Hemoglobin 32 pg (25-35) Mean Corpuscular Hemoglobin Concent 34 g/dL (31-37) Red Cell Distribution Width 12.9 % (11.5-14.5) Platelet Count 528 x10^3/uL (140-400) Neutrophils (%) (Auto) 74 % (31-73) Lymphocytes (%) (Auto) 16 % (24-48) Monocytes (%) (Auto) 10 % (0-9) Eosinophils (%) (Auto) 1 % (0-3) Basophils (%) (Auto) 0 % (0-3) Neutrophils # (Auto) 10.0 x10^3uL (1.8-7.7) Lymphocytes # (Auto) 2.1 x10^3/uL (1.0-4.8) Monocytes # (Auto) 1.3 x10^3/uL (0.0-1.1) Eosinophils # (Auto) 0.1 x10^3/uL (0.0-0.7) Basophils # (Auto) 0.0 x10^3/uL (0.0-0.2) Sodium Level 141 mmol/L (136-145) Potassium Level 4.0 mmol/L (3.5-5.1) Chloride Level 107 mmol/L (98-107) Carbon Dioxide Level 26 mmol/L (21-32) Anion Gap 8 (6-14) Blood Urea Nitrogen 16 mg/dL (8-26) Creatinine 1.0 mg/dL (0.7-1.3) Estimated GFR (Cockcroft-Gault) 78.5 Glucose Level 122 mg/dL (70-99) Calcium Level 8.1 mg/dL (8.5-10.1) Micro GRAM STAIN Final WBCS OCCASIONAL ORGANISMS NONE SEEN Objective Assessment Cheryl-rectal abscess, s/p I and D, 01/19. Intra-op GS no organisms Fever better Leukocytosis- trending down Pancreatic mass with possible liver mets Urinary retention requiring indwelling Kunz Plan Plan of Care Vanc and Zosyn. Had buttock abscess 2 years ago monitor WBC, Cr and temp Wait results of i/u intra-op cultures Tumor markers pending. Await onc eval. Await IR eval for biopsy per GI D/w mother Attending Co-Sign Attending Co-Sign The patient was seen and interviewed as well as examined at the bedside. The chart was reviewed. The case was discussed. Agree with the plan of care. TYLOR LOPEZ APRN January 20, 2017 09:58 ZULY HANNA MD January 20, 2017 13:30
--- NOTE | 2017-01-20 10:37 | PDOC1 ---
History and Physical Date of Admission Date of Admission DATE: 01/19/17 Identification/Chief Complaint Chief Complaint perirectal abscess Problems: Source Source: Patient History of Present Illness History of Present Illness 51 yo M c recurrent perirectal abscess (first one 2 yrs ago, requiring fistulectomy at [facility]), s/p I and D on 01/19/17. On CT to work-up this area, it was also noted that he had multiple hypodense hepatic lesions not seen on previous CTs, with a small hypodense calcified mass in uncinate process of pancreas, and an enlarged portacaval node. He has been seen by GI, ID and surgery. CA 19-9 is not back yet. IR has been asked to consider CT-guided biopsy of one of the peripheral R hepatic lobe lesions. GI also mentioned obtaining an MRI abdomen/pancreas for better clarification. He has also been found to be iron deficient. Past Medical History Cardiovascular: HTN Musculoskeletal: Osteoarthritis, Other (cervical fracture) Past Surgical History Past Surgical History: Appendectomy, Cholecystectomy, Other (fistulectomy/ drainage or perirectal abcess/ORIF cervical fracture) Family History Family History: Diabetes, Hypertension, Stroke Social History ALCOHOL: heavy (3-4 times per week, >10 beers per sitting) Drugs: None Current Problem List Problem List Problems Medical Problems: (1) Liver lesions NOS Status: Acute (2) Pancreatic mass Status: Acute (3) Rectal abscess Status: Acute Problems: Current Medications Current Medications Current Medications Iohexol (Omnipaque 300 Mg/ml) 75 ml 1X ONCE IV Last administered on 01/18/17 17:28; Start 01/18/17 at 15:45; Stop 01/18/17 at 15:46; Status DC Iohexol (Omnipaque 240 Mg/ml) 30 ml 1X ONCE PO Last administered on 01/18/17 15:45; Start 01/18/17 at 15:45; Stop 01/18/17 at 15:46; Status DC Info (Do NOT chart on this entry -- for MONITORING) 1 each PRN DAILY PRN MC SEE COMMENTS; Start 01/18/17 at 16:00; Stop 01/20/17 at 15:59 Fentanyl Citrate (Fentanyl 2ml Vial) 50 mcg 1X ONCE IV Last administered on 16:15; Start 01/18/17 at 16:15; Stop 01/18/17 at 16:16; Status DC Ondansetron HCl (Zofran) 4 mg 1X ONCE IV Last administered on 01/18/17 16:14 ; Start 01/18/17 at 16:15; Stop 01/18/17 at 16:16; Status DC Morphine Sulfate 5 mg 1X ONCE IV Last administered on 01/18/17 17:59; Start 01/18/17 at 18:15; Stop 01/18/17 at 18:16; Status DC Ondansetron HCl (Zofran) 4 mg PRN Q8HRS PRN IV NAUSEA/VOMITING; Start 01/18/17 at 21:15; Stop 01/19/17 at 21:14; Status DC Morphine Sulfate 4 mg PRN Q2HR PRN IV SEVERE PAIN Last administered on 04:13; Start 01/18/17 at 21:15; Stop 01/19/17 at 10:20; Status DC Acetaminophen (Tylenol) 650 mg PRN Q4HRS PRN PO FEVER Last administered on 01/18 22:13; Start 01/18/17 at 21:15; Stop 01/19/17 at 10:20; Status DC Sodium Chloride 1,000 ml @ 75 mls/hr [id number] IV Last administered on 03:53; Start 01/18/17 at 21:15 Metronidazole 100 ml @ 100 mls/hr Q8HRS IV Last administered on 01/19/17 06: 12; Start 01/18/17 at 22:00; Stop 01/19/17 at 10:00; Status DC Ciprofloxacin Lactate 200 ml @ 200 mls/hr Q12HR IV Last administered on 22:08; Start 01/18/17 at 22:00; Stop 01/19/17 at 10:00; Status DC Bupivacaine HCl/ Epinephrine Bitart (Sensorcain-Mpf Epi 0.5%-[id number]) 30 ml STK -MED ONCE .ROUTE Last administered on 01/19/17 08:28; Start 01/19/17 at 07:02 ; Stop 01/19/17 at 07:03; Status DC Dexamethasone Sodium Phosphate (Decadron) 20 mg STK-MED ONCE .ROUTE ; Start at 07:27; Stop 01/19/17 at 07:28; Status DC Ondansetron HCl (Zofran) 4 mg STK-MED ONCE .ROUTE ; Start 01/19/17 at 07:27; Stop 01/19/17 at 07:28; Status DC Propofol 20 ml @ As Directed STK-MED ONCE IV ; Start 01/19/17 at 07:27; Stop at 07:28; Status DC Lidocaine HCl (Lidocaine Pf 2% Vial) 5 ml STK-MED ONCE .ROUTE ; Start 01/19/17 at 07:27; Stop 01/19/17 at 07:28; Status DC Fentanyl Citrate (Fentanyl 2ml Vial) 100 mcg STK-MED ONCE .ROUTE ; Start at 07:32; Stop 01/19/17 at 07:33; Status DC Ondansetron HCl (Zofran) 4 mg PRN Q6HRS PRN IV NAUSEA/VOMITING; Start 01/19/17 at 08:15; Stop 01/19/17 at 18:00; Status DC Fentanyl Citrate (Fentanyl 2ml Vial) 25 mcg PRN Q5MIN PRN IV MILD PAIN; Start 01/19/17 at 08:15; Stop 01/19/17 at 10:41; Status DC Fentanyl Citrate (Fentanyl 2ml Vial) 50 mcg PRN Q5MIN PRN IV MODERATE PAIN; Start 01/19/17 at 08:15; Stop 01/19/17 at 10:41; Status DC Morphine Sulfate 1 mg PRN Q10MIN PRN IV SEVERE PAIN; Start 01/19/17 at 08:15; Stop 01/19/17 at 10:41; Status DC Ringer's Solution 1,000 ml @ 30 mls/hr Q24H IV ; Start 01/19/17 at 08:02; Stop 01/19/17 at 10:35; Status DC Lidocaine HCl 2 ml PRN 1X PRN ID PRIOR TO IV START; Start 01/19/17 at 08:15; Stop 01/19/17 at 18:00; Status DC Hydromorphone HCl (Dilaudid) 0.5 mg PRN Q10MIN PRN IV SEV PAIN, Second choice; Start 01/19/17 at 08:15; Stop 01/19/17 at 10:41; Status DC Prochlorperazine Edisylate (Compazine) 5 mg PACU PRN PRN IV NAUSEA, MRX1; Start 01/19/17 at 08:15; Stop 01/19/17 at 10:41; Status DC Fentanyl Citrate (Fentanyl 2ml Vial) 100 mcg STK-MED ONCE .ROUTE ; Start at 08:31; Stop 01/19/17 at 08:32; Status DC Oxycodone/ Acetaminophen (Percocet 5/325) 1 tab PRN Q4HRS PRN PO PAIN; Start at 08:45 Oxycodone/ Acetaminophen (Percocet 5/325) 2 tab PRN Q4HRS PRN PO PAIN; Start at 08:45 Vancomycin HCl 2 gm/Sodium Chloride 500 ml @ 250 mls/hr 1X ONCE IV Last administered on 01/19/17 12:30; Start 01/19/17 at 11:00; Stop 01/19/17 at 12:59 ; Status DC Vancomycin HCl (Vanco Per Pharmacy) 1 each PRN DAILY PRN MC SEE COMMENTS Last administered on 01/19/17 13:20; Start 01/19/17 at 10:00 Piperacillin Sod/ Tazobactam Sod (Zosyn Per Pharmacy) 1 each PRN DAILY PRN MC SEE COMMENTS; Start 01/19/17 at 10:00 Piperacillin Sod/ Tazobactam Sod 3.375 gm/Sodium Chloride 100 ml @ 200 mls/hr Q6HRS IV Last administered on 01/20/17 05:15; Start 01/19/17 at 11:00 Acetaminophen (Tylenol) 650 mg PRN Q6HRS PRN PO FEVER; Start 01/19/17 at 10:00 Ondansetron HCl (Zofran) 4 mg PRN Q6HRS PRN IV NAUSEA/VOMITING; Start 01/19/17 at 10:00 Morphine Sulfate 2 mg PRN Q2HR PRN IV PAIN; Start 01/19/17 at 10:00 Tramadol HCl (Ultram) 50 mg PRN Q6HRS PRN PO PAIN; Start 01/19/17 at 10:00 Hydralazine HCl (Apresoline) 10 mg PRN Q4HRS PRN IVP ELEVATED BP, SEE COMMENTS ; Start 01/19/17 at 10:00 Docusate Sodium (Colace) 100 mg PRN DAILY PRN PO CONSTIPATION Last administered on 01/19/17 16:12; Start 01/19/17 at 10:00 Cyclobenzaprine HCl (Flexeril) 10 mg DAILY PO Last administered on 01/20/17 08 :21; Start 01/19/17 at 10:00 Gabapentin (Neurontin) 300 mg TID PO Last administered on 01/20/17 08:22; Start 01/19/17 at 10:00 Lisinopril (Prinivil) 20 mg DAILY PO Last administered on 01/19/17 11:21; Start 01/19/17 at 10:00; Stop 01/20/17 at 10:04; Status DC Meloxicam (Mobic) 15 mg DAILY PO Last administered on 01/20/17 08:22; Start at 10:00 Hydrochlorothiazide (Microzide) 12.5 mg DAILY PO Last administered on 11:21; Start 01/19/17 at 10:00; Stop 01/20/17 at 10:04; Status DC Enoxaparin Sodium (Lovenox 40mg Syringe) 40 mg Q24H SQ ; Start 01/20/17 at 10:00 Vancomycin HCl 1.5 gm/Sodium Chloride 500 ml @ 250 mls/hr Q12H IV Last administered on 01/20/17 00:48; Start 01/20/17 at 00:00 Vancomycin HCl 1 each 1X ONCE MC ; Start 01/20/17 at 23:30; Stop 01/20/17 at 23 :31 Sodium Chloride 500 ml @ 500 mls/hr PRN Q3HRS PRN IV BP at 90 or below, max 2 doses Last administered on 01/20/17 00:50; Start 01/19/17 at 20:15; Stop at 00:50; Status DC Active Scripts Active Reported Lisinopril-Hctz 20-12.5 Mg Tab (Lisinopril/Hydrochlorothiazide) 1 Each Tablet 1 Tab PO DAILY Cyclobenzaprine Hcl 10 Mg Tablet 10 Mg PO DAILY Gabapentin 300 Mg Capsule 300 Mg PO TID Meloxicam 15 Mg Tablet 15 Mg PO DAILY Allergies Allergies: Coded Allergies: No Known Drug Allergies (Unverified , 01/18/17) ROS General: YES: Other (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, 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) PSYCHOLOGICAL ROS: YES: Anxiety Eyes: No Blurry vision, No Decreased vision, No Double vision, No Dry eyes, No Excessive tearing, No Eye Pain, No Itchy Eyes, No Loss of vision, No Photophobia , No Scotomata, No Uses contacts, No Uses glasses, No Other HEENT: No: Heacaches, Visual Changes, Hearing change, Nasal congestion, Nasal discharge, Oral lesions, Sinus pain, Sore Throat, Epistaxis, Sneezing, Snoring, Tinnitus, Vertigo, Vocal changes, Other ALLERGY AND IMMUNOLOGY: No: Hives, Insect Bite Sensitivity, Itchy/Watery Eyes, Nasal Congestion, Post Nasal Drip, Seasonal Allergies, Other Hematological and Lymphatic: No: Bleeding Problems, Blood Clots, Blood Transfusions, Brusing, Night Sweats, Pallor, Swollen Lymph Nodes, Other ENDOCRINE: No: Breast Changes, Galactorrhea, Hair Pattern Changes, Hot Flashes , Malaise/lethargy, Mood Swings, Palpitations, Polydipsia/polyuria, Skin Changes , Temperature Intolerance, Unexpected Weight Changes, Other Respiratory: No: Cough, Hemoptysis, Orthopnea, Pleuritic Pain, Shortness of breath, SOB with excertion, Sputum Changes, Stridor, Tachypnea, Wheezing, Other Cardiovascular: No Chest Pain, No Palpitations, No Orthopnea, No Paroxysmal Noc. Dyspnea, No Edema, No Lt Headedness, No Other Gastrointestinal: Yes Abdominal Pain, No Nausea, No Vomiting, No Diarrhea, No Constipation, No Melena, No Hematochezia, No Other Genitourinary: No Dysuria, No Frequency, No Incontinence, No Hematuria, No Retention, No Discharge, No Urgency, No Pain, No Flank Pain, No Other, No , No , No , No , No , No , No Musculoskeletal: Yes Joint Pain, Yes Joint Stiffness, Yes Other (rectal abscess (again!) - never had c-scope) Neurological: No Behavorial Changes, No Bowel/Bladder ControlChng, No Confusion , No Dizziness, No Gait Disturbance, No Headaches, No Impaired Coord/balance, No Memory Loss, No Numbness/Tingling, No Seizures, No Speech Problems, No Tremors, No Visual Changes, No Weakness, No Other Skin: No Dry Skin, No Eczema, No Hair Changes, No Lumps, No Mole Changes, No Mottling, No Nail Changes, No Pruritus, No Rash, No Skin Lesion Changes, No Other, No Acne Physical Exam General: Alert, Oriented X3, Cooperative, No acute distress HEENT: Atraumatic, PERRLA, Mucous membr. moist/pink Lungs: Clear to auscultation, Normal air movement Heart: RRR, no murmurs Abdomen: Normal bowel sounds, No tenderness, No hepatosplenomegaly, No masses Rectal Exam: deferred Extremities: No clubbing, No cyanosis, No edema Skin: No rashes, No breakdown, No significant lesion Neuro: Normal gait, Normal speech, Strength at 5/5 X4 ext, Normal tone, Sensation intact, Cranial nerves 3-12 NL Psych/Mental Status: Mental status NL Vitals Vitals Vital Signs Date Time Temp Pulse Resp B/P (MAP) Pulse Ox O2 Delivery O2 Flow Rate FiO2 01/20/17 07:00 96.6 50 16 113/67 (82) 99 Room Air 96.6 01/19/17 08:57 8 Labs Labs Laboratory Tests Test 01/18/17 15:40 01/19/17 06:00 01/19/17 16:20 01/20/17 03:52 White Blood Count 19.8 x10^3/uL (4.0-11.0) 16.4 x10^3/uL (4.0-11.0) 13.5 x10^3/uL (4.0-11.0) Red Blood Count 3.39 x10^6/uL (4.30-5.70) 3.39 x10^6/uL (4.30-5.70) 3.18 x10^6/uL (4.30-5.70) Hemoglobin 11.2 g/dL (13.0-17.5) 11.1 g/dL (13.0-17.5) 10.3 g/dL (13.0-17.5) Hematocrit 32.7 % (39.0-53.0) 32.6 % (39.0-53.0) 30.5 % (39.0-53.0) Mean Corpuscular Volume 96 fL (79-100) 96 fL (79-100) 96 fL (79-100) Mean Corpuscular Hemoglobin 33 pg (25-35) 33 pg (25-35) 32 pg (25-35) Mean Corpuscular Hemoglobin Concent 34 g/dL (31-37) 34 g/dL (31-37) 34 g/dL (31-37) Red Cell Distribution Width 12.6 % (11.5-14.5) 12.9 % (11.5-14.5) 12.9 % (11.5-14.5) Platelet Count 521 x10^3/uL (140-400) 489 x10^3/uL (140-400) 528 x10^3/uL (140-400) Neutrophils (%) (Auto) 72 % (31-73) 75 % (31-73) 74 % (31-73) Lymphocytes (%) (Auto) 15 % (24-48) 11 % (24-48) 16 % (24-48) Monocytes (%) (Auto) 12 % (0-9) 12 % (0-9) 10 % (0-9) Eosinophils (%) (Auto) 1 % (0-3) 1 % (0-3) 1 % (0-3) Basophils (%) (Auto) 1 % (0-3) 1 % (0-3) 0 % (0-3) Neutrophils # (Auto) 14.3 x10^3uL (1.8-7.7) 12.3 x10^3uL (1.8-7.7) 10.0 x10^3uL (1.8-7.7) Lymphocytes # (Auto) 2.9 x10^3/uL (1.0-4.8) 1.8 x10^3/uL (1.0-4.8) 2.1 x10^3/uL (1.0-4.8) Monocytes # (Auto) 2.4 x10^3/uL (0.0-1.1) 2.0 x10^3/uL (0.0-1.1) 1.3 x10^3/uL (0.0-1.1) Eosinophils # (Auto) 0.1 x10^3/uL (0.0-0.7) 0.2 x10^3/uL (0.0-0.7) 0.1 x10^3/uL (0.0-0.7) Basophils # (Auto) 0.1 x10^3/uL (0.0-0.2) 0.1 x10^3/uL (0.0-0.2) 0.0 x10^3/uL (0.0-0.2) Segmented Neutrophils % 72 % (35-66) Band Neutrophils % 7 % (0-9) Lymphocytes % 13 % (24-48) Monocytes % 7 % (0-10) Eosinophils % 1 % (0-5) Platelet Estimate Increased (ADEQUATE) Erythrocyte Sedimentation Rate 96 (0-15) Sodium Level 134 mmol/L (136-145) 136 mmol/L (136-145) 141 mmol/L (136-145) Potassium Level 3.7 mmol/L (3.5-5.1) 4.1 mmol/L (3.5-5.1) 4.0 mmol/L (3.5-5.1) Chloride Level 96 mmol/L (98-107) 99 mmol/L (98-107) 107 mmol/L (98-107) Carbon Dioxide Level 26 mmol/L (21-32) 25 mmol/L (21-32) 26 mmol/L (21-32) Anion Gap 12 (6-14) 12 (6-14) 8 (6-14) Blood Urea Nitrogen 25 mg/dL (8-26) 17 mg/dL (8-26) 16 mg/dL (8-26) Creatinine 1.3 mg/dL (0.7-1.3) 1.1 mg/dL (0.7-1.3) 1.0 mg/dL (0.7-1.3) Estimated GFR (Cockcroft-Gault) 58.0 70.3 78.5 BUN/Creatinine Ratio 19 (6-20) 15 (6-20) Glucose Level 89 mg/dL (70-99) 88 mg/dL (70-99) 122 mg/dL (70-99) Calcium Level 9.4 mg/dL (8.5-10.1) 8.7 mg/dL (8.5-10.1) 8.1 mg/dL (8.5-10.1) Total Bilirubin 0.5 mg/dL (0.2-1.0) 0.9 mg/dL (0.2-1.0) Aspartate Amino Transf (AST/SGOT) 70 U/L (15-37) 103 U/L (15-37) Alanine Aminotransferase (ALT/SGPT) 111 U/L (16-63) 111 U/L (16-63) Alkaline Phosphatase 190 U/L (46-116) 211 U/L (46-116) C-Reactive Protein, Quantitative 189.4 mg/L (0-3.3) Total Protein 7.5 g/dL (6.4-8.2) 6.5 g/dL (6.4-8.2) Albumin 3.6 g/dL (3.4-5.0) 3.0 g/dL (3.4-5.0) Albumin/Globulin Ratio 0.9 (1.0-1.7) 0.9 (1.0-1.7) Iron Level 18 ug/dL (65-175) Total Iron Binding Capacity 155 ug/dL (250-450) Iron Saturation 12 % (15-34) Laboratory Tests Test 01/19/17 16:20 01/20/17 03:52 Iron Level 18 ug/dL (65-175) Total Iron Binding Capacity 155 ug/dL (250-450) Iron Saturation 12 % (15-34) White Blood Count 13.5 x10^3/uL (4.0-11.0) Red Blood Count 3.18 x10^6/uL (4.30-5.70) Hemoglobin 10.3 g/dL (13.0-17.5) Hematocrit 30.5 % (39.0-53.0) Mean Corpuscular Volume 96 fL (79-100) Mean Corpuscular Hemoglobin 32 pg (25-35) Mean Corpuscular Hemoglobin Concent 34 g/dL (31-37) Red Cell Distribution Width 12.9 % (11.5-14.5) Platelet Count 528 x10^3/uL (140-400) Neutrophils (%) (Auto) 74 % (31-73) Lymphocytes (%) (Auto) 16 % (24-48) Monocytes (%) (Auto) 10 % (0-9) Eosinophils (%) (Auto) 1 % (0-3) Basophils (%) (Auto) 0 % (0-3) Neutrophils # (Auto) 10.0 x10^3uL (1.8-7.7) Lymphocytes # (Auto) 2.1 x10^3/uL (1.0-4.8) Monocytes # (Auto) 1.3 x10^3/uL (0.0-1.1) Eosinophils # (Auto) 0.1 x10^3/uL (0.0-0.7) Basophils # (Auto) 0.0 x10^3/uL (0.0-0.2) Sodium Level 141 mmol/L (136-145) Potassium Level 4.0 mmol/L (3.5-5.1) Chloride Level 107 mmol/L (98-107) Carbon Dioxide Level 26 mmol/L (21-32) Anion Gap 8 (6-14) Blood Urea Nitrogen 16 mg/dL (8-26) Creatinine 1.0 mg/dL (0.7-1.3) Estimated GFR (Cockcroft-Gault) 78.5 Glucose Level 122 mg/dL (70-99) Calcium Level 8.1 mg/dL (8.5-10.1) Images Images CT showed R perirectal fluid collection, multiple hypodense lesions (not seen 2009), small hypodense mass with calcification of uncinate process of pancreas, enlarged portacaval node VTE Prophylaxis Ordered VTE Prophylaxis Devices: Yes VTE Pharmacological Prophylaxi: Yes Assessment/Plan Assessment/Plan 51 yo M c recurrent perirectal abscess s/p I &D 01/19, incidentally found to have multiple liver lesions and an pancreatic uncinate process lesion as well, NOS. He has never had EGD or c-scope. Agree we need further clarification as to what we should be calling this. CA 19-9 has been ordered, but irregardless of this result, would like further imaging/tissue. -MRI or MRCP would give us better idea of pancreatic mass, but would not give us the tissue diagnosis, which is of even greater importance now. -If IR feels like they cannot get tissue safely with CT-guidance, could also consider ERCP/EUS with biopsies. With recurrent perirectal fistual/abscess, agree with EGD/c-scope for eval for IBD - could be playing a role into generalized arthralgias, ongoing ab pain issues... Continue to follow peripherally until we have tissue biopsy GUNJAN HAMILTON MD January 20, 2017 10:37
[2017-01-20 11:00] VITALS: BP 100/59
[2017-01-20] MEDS: ENOXAPARIN 40 MG/0.4 ML SYRINGE. SQ SCH (11:19)
--- NOTE | 2017-01-20 11:39 | PDOC ---
SURGICAL PROGRESS NOTE Subjective Feeling much better, minimal pain Vital Signs Vital Signs Date Time Temp Pulse Resp B/P (MAP) Pulse Ox O2 Delivery O2 Flow Rate FiO2 01/20/17 11:00 95.4 54 16 100/59 (73) 100 Room Air 95.4 01/19/17 08:57 8 I&O Intake and Output 01/20/17 07:00 Intake Total 3588 ml Output Total 2680 ml Balance 908 ml Intake Oral 1298 ml IV Total 2290 ml Output Urine Total 2650 ml Estimated Blood Loss 30 ml PATIENT HAS A CHAN: Yes General: Alert, Oriented X3, Cooperative, No acute distress Skin: Other (wound is dressed) Labs Laboratory Tests Test 01/18/17 15:40 01/19/17 06:00 01/19/17 16:20 01/20/17 03:52 White Blood Count 19.8 x10^3/uL (4.0-11.0) 16.4 x10^3/uL (4.0-11.0) 13.5 x10^3/uL (4.0-11.0) Red Blood Count 3.39 x10^6/uL (4.30-5.70) 3.39 x10^6/uL (4.30-5.70) 3.18 x10^6/uL (4.30-5.70) Hemoglobin 11.2 g/dL (13.0-17.5) 11.1 g/dL (13.0-17.5) 10.3 g/dL (13.0-17.5) Hematocrit 32.7 % (39.0-53.0) 32.6 % (39.0-53.0) 30.5 % (39.0-53.0) Mean Corpuscular Volume 96 fL (79-100) 96 fL (79-100) 96 fL (79-100) Mean Corpuscular Hemoglobin 33 pg (25-35) 33 pg (25-35) 32 pg (25-35) Mean Corpuscular Hemoglobin Concent 34 g/dL (31-37) 34 g/dL (31-37) 34 g/dL (31-37) Red Cell Distribution Width 12.6 % (11.5-14.5) 12.9 % (11.5-14.5) 12.9 % (11.5-14.5) Platelet Count 521 x10^3/uL (140-400) 489 x10^3/uL (140-400) 528 x10^3/uL (140-400) Neutrophils (%) (Auto) 72 % (31-73) 75 % (31-73) 74 % (31-73) Lymphocytes (%) (Auto) 15 % (24-48) 11 % (24-48) 16 % (24-48) Monocytes (%) (Auto) 12 % (0-9) 12 % (0-9) 10 % (0-9) Eosinophils (%) (Auto) 1 % (0-3) 1 % (0-3) 1 % (0-3) Basophils (%) (Auto) 1 % (0-3) 1 % (0-3) 0 % (0-3) Neutrophils # (Auto) 14.3 x10^3uL (1.8-7.7) 12.3 x10^3uL (1.8-7.7) 10.0 x10^3uL (1.8-7.7) Lymphocytes # (Auto) 2.9 x10^3/uL (1.0-4.8) 1.8 x10^3/uL (1.0-4.8) 2.1 x10^3/uL (1.0-4.8) Monocytes # (Auto) 2.4 x10^3/uL (0.0-1.1) 2.0 x10^3/uL (0.0-1.1) 1.3 x10^3/uL (0.0-1.1) Eosinophils # (Auto) 0.1 x10^3/uL (0.0-0.7) 0.2 x10^3/uL (0.0-0.7) 0.1 x10^3/uL (0.0-0.7) Basophils # (Auto) 0.1 x10^3/uL (0.0-0.2) 0.1 x10^3/uL (0.0-0.2) 0.0 x10^3/uL (0.0-0.2) Segmented Neutrophils % 72 % (35-66) Band Neutrophils % 7 % (0-9) Lymphocytes % 13 % (24-48) Monocytes % 7 % (0-10) Eosinophils % 1 % (0-5) Platelet Estimate Increased (ADEQUATE) Erythrocyte Sedimentation Rate 96 (0-15) Sodium Level 134 mmol/L (136-145) 136 mmol/L (136-145) 141 mmol/L (136-145) Potassium Level 3.7 mmol/L (3.5-5.1) 4.1 mmol/L (3.5-5.1) 4.0 mmol/L (3.5-5.1) Chloride Level 96 mmol/L (98-107) 99 mmol/L (98-107) 107 mmol/L (98-107) Carbon Dioxide Level 26 mmol/L (21-32) 25 mmol/L (21-32) 26 mmol/L (21-32) Anion Gap 12 (6-14) 12 (6-14) 8 (6-14) Blood Urea Nitrogen 25 mg/dL (8-26) 17 mg/dL (8-26) 16 mg/dL (8-26) Creatinine 1.3 mg/dL (0.7-1.3) 1.1 mg/dL (0.7-1.3) 1.0 mg/dL (0.7-1.3) Estimated GFR (Cockcroft-Gault) 58.0 70.3 78.5 BUN/Creatinine Ratio 19 (6-20) 15 (6-20) Glucose Level 89 mg/dL (70-99) 88 mg/dL (70-99) 122 mg/dL (70-99) Calcium Level 9.4 mg/dL (8.5-10.1) 8.7 mg/dL (8.5-10.1) 8.1 mg/dL (8.5-10.1) Total Bilirubin 0.5 mg/dL (0.2-1.0) 0.9 mg/dL (0.2-1.0) Aspartate Amino Transf (AST/SGOT) 70 U/L (15-37) 103 U/L (15-37) Alanine Aminotransferase (ALT/SGPT) 111 U/L (16-63) 111 U/L (16-63) Alkaline Phosphatase 190 U/L (46-116) 211 U/L (46-116) C-Reactive Protein, Quantitative 189.4 mg/L (0-3.3) Total Protein 7.5 g/dL (6.4-8.2) 6.5 g/dL (6.4-8.2) Albumin 3.6 g/dL (3.4-5.0) 3.0 g/dL (3.4-5.0) Albumin/Globulin Ratio 0.9 (1.0-1.7) 0.9 (1.0-1.7) Iron Level 18 ug/dL (65-175) Total Iron Binding Capacity 155 ug/dL (250-450) Iron Saturation 12 % (15-34) Laboratory Tests Test 01/19/17 16:20 01/20/17 03:52 Iron Level 18 ug/dL (65-175) Total Iron Binding Capacity 155 ug/dL (250-450) Iron Saturation 12 % (15-34) White Blood Count 13.5 x10^3/uL (4.0-11.0) Red Blood Count 3.18 x10^6/uL (4.30-5.70) Hemoglobin 10.3 g/dL (13.0-17.5) Hematocrit 30.5 % (39.0-53.0) Mean Corpuscular Volume 96 fL (79-100) Mean Corpuscular Hemoglobin 32 pg (25-35) Mean Corpuscular Hemoglobin Concent 34 g/dL (31-37) Red Cell Distribution Width 12.9 % (11.5-14.5) Platelet Count 528 x10^3/uL (140-400) Neutrophils (%) (Auto) 74 % (31-73) Lymphocytes (%) (Auto) 16 % (24-48) Monocytes (%) (Auto) 10 % (0-9) Eosinophils (%) (Auto) 1 % (0-3) Basophils (%) (Auto) 0 % (0-3) Neutrophils # (Auto) 10.0 x10^3uL (1.8-7.7) Lymphocytes # (Auto) 2.1 x10^3/uL (1.0-4.8) Monocytes # (Auto) 1.3 x10^3/uL (0.0-1.1) Eosinophils # (Auto) 0.1 x10^3/uL (0.0-0.7) Basophils # (Auto) 0.0 x10^3/uL (0.0-0.2) Sodium Level 141 mmol/L (136-145) Potassium Level 4.0 mmol/L (3.5-5.1) Chloride Level 107 mmol/L (98-107) Carbon Dioxide Level 26 mmol/L (21-32) Anion Gap 8 (6-14) Blood Urea Nitrogen 16 mg/dL (8-26) Creatinine 1.0 mg/dL (0.7-1.3) Estimated GFR (Cockcroft-Gault) 78.5 Glucose Level 122 mg/dL (70-99) Calcium Level 8.1 mg/dL (8.5-10.1) Problem List Problems Medical Problems: (1) Liver metastases Status: Acute (2) Pancreatic cancer Status: Acute (3) Rectal abscess Status: Acute Assessment/Plan Perirectal abscess s/p drainage much improved Wound care IV abx Work up on abnormal pancreatic finding on going will F/U on results. Problems: NICCI ESTRADA MD January 20, 2017 11:39
--- NOTE | 2017-01-20 12:36 | PDOC ---
PROGRESS NOTES Chief Complaint Chief Complaint 1. right side darci rectal abscess s/p I and D on 01/19 2. liver and pancreatic mass found in CT 3. htn 5. depression 6. sepsis with 1 7. tobaccoism 8, anemia, iron deficiency 9. urinary retention, 2/2 1 likely plan: fu with id, sx, gi ,onco consult kathryn junior for now, ivf, fu cx cont home meds, dc HTN meds for now given low side bp dvt ppx pain control check [id number], [facility] IR consult for possible liver lesions bx iv iron keep oliveira for now, consider dc oliveira tmr and void trial History of Present Illness History of Present Illness wbc better, rectal pain better low BP need iv bolus Vitals Vitals Vital Signs Date Time Temp Pulse Resp B/P (MAP) Pulse Ox O2 Delivery O2 Flow Rate FiO2 01/20/17 11:00 95.4 54 16 100/59 (73) 100 Room Air 95.4 01/19/17 08:57 8 Physical Exam General: Alert, Oriented X3, Cooperative, No acute distress Heart: Regular rate, Normal S1, Normal S2, No murmurs Lungs: Clear Abdomen: Normal bowel sounds, Soft, No tenderness, No hepatosplenomegaly Extremities: No cyanosis, No edema Skin: Other (right side buttock wound is dressed, with dressing packing) Labs LABS Laboratory Tests Test 01/19/17 16:20 01/20/17 03:52 Iron Level 18 ug/dL (65-175) Total Iron Binding Capacity 155 ug/dL (250-450) Iron Saturation 12 % (15-34) White Blood Count 13.5 x10^3/uL (4.0-11.0) Red Blood Count 3.18 x10^6/uL (4.30-5.70) Hemoglobin 10.3 g/dL (13.0-17.5) Hematocrit 30.5 % (39.0-53.0) Mean Corpuscular Volume 96 fL (79-100) Mean Corpuscular Hemoglobin 32 pg (25-35) Mean Corpuscular Hemoglobin Concent 34 g/dL (31-37) Red Cell Distribution Width 12.9 % (11.5-14.5) Platelet Count 528 x10^3/uL (140-400) Neutrophils (%) (Auto) 74 % (31-73) Lymphocytes (%) (Auto) 16 % (24-48) Monocytes (%) (Auto) 10 % (0-9) Eosinophils (%) (Auto) 1 % (0-3) Basophils (%) (Auto) 0 % (0-3) Neutrophils # (Auto) 10.0 x10^3uL (1.8-7.7) Lymphocytes # (Auto) 2.1 x10^3/uL (1.0-4.8) Monocytes # (Auto) 1.3 x10^3/uL (0.0-1.1) Eosinophils # (Auto) 0.1 x10^3/uL (0.0-0.7) Basophils # (Auto) 0.0 x10^3/uL (0.0-0.2) Sodium Level 141 mmol/L (136-145) Potassium Level 4.0 mmol/L (3.5-5.1) Chloride Level 107 mmol/L (98-107) Carbon Dioxide Level 26 mmol/L (21-32) Anion Gap 8 (6-14) Blood Urea Nitrogen 16 mg/dL (8-26) Creatinine 1.0 mg/dL (0.7-1.3) Estimated GFR (Cockcroft-Gault) 78.5 Glucose Level 122 mg/dL (70-99) Calcium Level 8.1 mg/dL (8.5-10.1) Review of Systems Review of Systems no fever, chills, sob or chest pain Assessment and Plan Assessmemt and Plan Problems Medical Problems: (1) Liver metastases Status: Acute (2) Pancreatic cancer Status: Acute (3) Rectal abscess Status: Acute Problems: Comment Review of Relevant I have reviewed the following items shante (where applicable) has been applied. Labs Laboratory Tests Test 01/18/17 15:40 01/19/17 06:00 01/19/17 16:20 01/20/17 03:52 White Blood Count 19.8 x10^3/uL (4.0-11.0) 16.4 x10^3/uL (4.0-11.0) 13.5 x10^3/uL (4.0-11.0) Red Blood Count 3.39 x10^6/uL (4.30-5.70) 3.39 x10^6/uL (4.30-5.70) 3.18 x10^6/uL (4.30-5.70) Hemoglobin 11.2 g/dL (13.0-17.5) 11.1 g/dL (13.0-17.5) 10.3 g/dL (13.0-17.5) Hematocrit 32.7 % (39.0-53.0) 32.6 % (39.0-53.0) 30.5 % (39.0-53.0) Mean Corpuscular Volume 96 fL (79-100) 96 fL (79-100) 96 fL (79-100) Mean Corpuscular Hemoglobin 33 pg (25-35) 33 pg (25-35) 32 pg (25-35) Mean Corpuscular Hemoglobin Concent 34 g/dL (31-37) 34 g/dL (31-37) 34 g/dL (31-37) Red Cell Distribution Width 12.6 % (11.5-14.5) 12.9 % (11.5-14.5) 12.9 % (11.5-14.5) Platelet Count 521 x10^3/uL (140-400) 489 x10^3/uL (140-400) 528 x10^3/uL (140-400) Neutrophils (%) (Auto) 72 % (31-73) 75 % (31-73) 74 % (31-73) Lymphocytes (%) (Auto) 15 % (24-48) 11 % (24-48) 16 % (24-48) Monocytes (%) (Auto) 12 % (0-9) 12 % (0-9) 10 % (0-9) Eosinophils (%) (Auto) 1 % (0-3) 1 % (0-3) 1 % (0-3) Basophils (%) (Auto) 1 % (0-3) 1 % (0-3) 0 % (0-3) Neutrophils # (Auto) 14.3 x10^3uL (1.8-7.7) 12.3 x10^3uL (1.8-7.7) 10.0 x10^3uL (1.8-7.7) Lymphocytes # (Auto) 2.9 x10^3/uL (1.0-4.8) 1.8 x10^3/uL (1.0-4.8) 2.1 x10^3/uL (1.0-4.8) Monocytes # (Auto) 2.4 x10^3/uL (0.0-1.1) 2.0 x10^3/uL (0.0-1.1) 1.3 x10^3/uL (0.0-1.1) Eosinophils # (Auto) 0.1 x10^3/uL (0.0-0.7) 0.2 x10^3/uL (0.0-0.7) 0.1 x10^3/uL (0.0-0.7) Basophils # (Auto) 0.1 x10^3/uL (0.0-0.2) 0.1 x10^3/uL (0.0-0.2) 0.0 x10^3/uL (0.0-0.2) Segmented Neutrophils % 72 % (35-66) Band Neutrophils % 7 % (0-9) Lymphocytes % 13 % (24-48) Monocytes % 7 % (0-10) Eosinophils % 1 % (0-5) Platelet Estimate Increased (ADEQUATE) Erythrocyte Sedimentation Rate 96 (0-15) Sodium Level 134 mmol/L (136-145) 136 mmol/L (136-145) 141 mmol/L (136-145) Potassium Level 3.7 mmol/L (3.5-5.1) 4.1 mmol/L (3.5-5.1) 4.0 mmol/L (3.5-5.1) Chloride Level 96 mmol/L (98-107) 99 mmol/L (98-107) 107 mmol/L (98-107) Carbon Dioxide Level 26 mmol/L (21-32) 25 mmol/L (21-32) 26 mmol/L (21-32) Anion Gap 12 (6-14) 12 (6-14) 8 (6-14) Blood Urea Nitrogen 25 mg/dL (8-26) 17 mg/dL (8-26) 16 mg/dL (8-26) Creatinine 1.3 mg/dL (0.7-1.3) 1.1 mg/dL (0.7-1.3) 1.0 mg/dL (0.7-1.3) Estimated GFR (Cockcroft-Gault) 58.0 70.3 78.5 BUN/Creatinine Ratio 19 (6-20) 15 (6-20) Glucose Level 89 mg/dL (70-99) 88 mg/dL (70-99) 122 mg/dL (70-99) Calcium Level 9.4 mg/dL (8.5-10.1) 8.7 mg/dL (8.5-10.1) 8.1 mg/dL (8.5-10.1) Total Bilirubin 0.5 mg/dL (0.2-1.0) 0.9 mg/dL (0.2-1.0) Aspartate Amino Transf (AST/SGOT) 70 U/L (15-37) 103 U/L (15-37) Alanine Aminotransferase (ALT/SGPT) 111 U/L (16-63) 111 U/L (16-63) Alkaline Phosphatase 190 U/L (46-116) 211 U/L (46-116) C-Reactive Protein, Quantitative 189.4 mg/L (0-3.3) Total Protein 7.5 g/dL (6.4-8.2) 6.5 g/dL (6.4-8.2) Albumin 3.6 g/dL (3.4-5.0) 3.0 g/dL (3.4-5.0) Albumin/Globulin Ratio 0.9 (1.0-1.7) 0.9 (1.0-1.7) Iron Level 18 ug/dL (65-175) Total Iron Binding Capacity 155 ug/dL (250-450) Iron Saturation 12 % (15-34) Laboratory Tests Test 01/19/17 16:20 01/20/17 03:52 Iron Level 18 ug/dL (65-175) Total Iron Binding Capacity 155 ug/dL (250-450) Iron Saturation 12 % (15-34) White Blood Count 13.5 x10^3/uL (4.0-11.0) Red Blood Count 3.18 x10^6/uL (4.30-5.70) Hemoglobin 10.3 g/dL (13.0-17.5) Hematocrit 30.5 % (39.0-53.0) Mean Corpuscular Volume 96 fL (79-100) Mean Corpuscular Hemoglobin 32 pg (25-35) Mean Corpuscular Hemoglobin Concent 34 g/dL (31-37) Red Cell Distribution Width 12.9 % (11.5-14.5) Platelet Count 528 x10^3/uL (140-400) Neutrophils (%) (Auto) 74 % (31-73) Lymphocytes (%) (Auto) 16 % (24-48) Monocytes (%) (Auto) 10 % (0-9) Eosinophils (%) (Auto) 1 % (0-3) Basophils (%) (Auto) 0 % (0-3) Neutrophils # (Auto) 10.0 x10^3uL (1.8-7.7) Lymphocytes # (Auto) 2.1 x10^3/uL (1.0-4.8) Monocytes # (Auto) 1.3 x10^3/uL (0.0-1.1) Eosinophils # (Auto) 0.1 x10^3/uL (0.0-0.7) Basophils # (Auto) 0.0 x10^3/uL (0.0-0.2) Sodium Level 141 mmol/L (136-145) Potassium Level 4.0 mmol/L (3.5-5.1) Chloride Level 107 mmol/L (98-107) Carbon Dioxide Level 26 mmol/L (21-32) Anion Gap 8 (6-14) Blood Urea Nitrogen 16 mg/dL (8-26) Creatinine 1.0 mg/dL (0.7-1.3) Estimated GFR (Cockcroft-Gault) 78.5 Glucose Level 122 mg/dL (70-99) Calcium Level 8.1 mg/dL (8.5-10.1) Microbiology 01/19/17 Gram Stain - Final, Complete Medications Current Medications Iohexol (Omnipaque 300 Mg/ml) 75 ml 1X ONCE IV Last administered on 01/18/17 17:28; Start 01/18/17 at 15:45; Stop 01/18/17 at 15:46; Status DC Iohexol (Omnipaque 240 Mg/ml) 30 ml 1X ONCE PO Last administered on 01/18/17 15:45; Start 01/18/17 at 15:45; Stop 01/18/17 at 15:46; Status DC Info (Do NOT chart on this entry -- for MONITORING) 1 each PRN DAILY PRN MC SEE COMMENTS; Start 01/18/17 at 16:00; Stop 01/20/17 at 15:59 Fentanyl Citrate (Fentanyl 2ml Vial) 50 mcg 1X ONCE IV Last administered on 16:15; Start 01/18/17 at 16:15; Stop 01/18/17 at 16:16; Status DC Ondansetron HCl (Zofran) 4 mg 1X ONCE IV Last administered on 01/18/17 16:14 ; Start 01/18/17 at 16:15; Stop 01/18/17 at 16:16; Status DC Morphine Sulfate 5 mg 1X ONCE IV Last administered on 01/18/17 17:59; Start 01/18/17 at 18:15; Stop 01/18/17 at 18:16; Status DC Ondansetron HCl (Zofran) 4 mg PRN Q8HRS PRN IV NAUSEA/VOMITING; Start 01/18/17 at 21:15; Stop 01/19/17 at 21:14; Status DC Morphine Sulfate 4 mg PRN Q2HR PRN IV SEVERE PAIN Last administered on 04:13; Start 01/18/17 at 21:15; Stop 01/19/17 at 10:20; Status DC Acetaminophen (Tylenol) 650 mg PRN Q4HRS PRN PO FEVER Last administered on 01/18 22:13; Start 01/18/17 at 21:15; Stop 01/19/17 at 10:20; Status DC Sodium Chloride 1,000 ml @ 75 mls/hr [id number] IV Last administered on 03:53; Start 01/18/17 at 21:15 Metronidazole 100 ml @ 100 mls/hr Q8HRS IV Last administered on 01/19/17 06: 12; Start 01/18/17 at 22:00; Stop 01/19/17 at 10:00; Status DC Ciprofloxacin Lactate 200 ml @ 200 mls/hr Q12HR IV Last administered on 22:08; Start 01/18/17 at 22:00; Stop 01/19/17 at 10:00; Status DC Bupivacaine HCl/ Epinephrine Bitart (Sensorcain-Mpf Epi 0.5%-[id number]) 30 ml STK -MED ONCE .ROUTE Last administered on 01/19/17t 08:28; Start 01/19/17 at 07:02 ; Stop 01/19/17 at 07:03; Status DC Dexamethasone Sodium Phosphate (Decadron) 20 mg STK-MED ONCE .ROUTE ; Start at 07:27; Stop 01/19/17 at 07:28; Status DC Ondansetron HCl (Zofran) 4 mg STK-MED ONCE .ROUTE ; Start 01/19/17 at 07:27; Stop 01/19/17 at 07:28; Status DC Propofol 20 ml @ As Directed STK-MED ONCE IV ; Start 01/19/17 at 07:27; Stop at 07:28; Status DC Lidocaine HCl (Lidocaine Pf 2% Vial) 5 ml STK-MED ONCE .ROUTE ; Start 01/19/17 at 07:27; Stop 01/19/17 at 07:28; Status DC Fentanyl Citrate (Fentanyl 2ml Vial) 100 mcg STK-MED ONCE .ROUTE ; Start at 07:32; Stop 01/19/17 at 07:33; Status DC Ondansetron HCl (Zofran) 4 mg PRN Q6HRS PRN IV NAUSEA/VOMITING; Start 01/19/17 at 08:15; Stop 01/19/17 at 18:00; Status DC Fentanyl Citrate (Fentanyl 2ml Vial) 25 mcg PRN Q5MIN PRN IV MILD PAIN; Start 01/19/17 at 08:15; Stop 01/19/17 at 10:41; Status DC Fentanyl Citrate (Fentanyl 2ml Vial) 50 mcg PRN Q5MIN PRN IV MODERATE PAIN; Start 01/19/17 at 08:15; Stop 01/19/17 at 10:41; Status DC Morphine Sulfate 1 mg PRN Q10MIN PRN IV SEVERE PAIN; Start 01/19/17 at 08:15; Stop 01/19/17 at 10:41; Status DC Ringer's Solution 1,000 ml @ 30 mls/hr Q24H IV ; Start 01/19/17 at 08:02; Stop 01/19/17 at 10:35; Status DC Lidocaine HCl 2 ml PRN 1X PRN ID PRIOR TO IV START; Start 01/19/17 at 08:15; Stop 01/19/17 at 18:00; Status DC Hydromorphone HCl (Dilaudid) 0.5 mg PRN Q10MIN PRN IV SEV PAIN, Second choice; Start 01/19/17 at 08:15; Stop 01/19/17 at 10:41; Status DC Prochlorperazine Edisylate (Compazine) 5 mg PACU PRN PRN IV NAUSEA, MRX1; Start 01/19/17 at 08:15; Stop 01/19/17 at 10:41; Status DC Fentanyl Citrate (Fentanyl 2ml Vial) 100 mcg STK-MED ONCE .ROUTE ; Start at 08:31; Stop 01/19/17 at 08:32; Status DC Oxycodone/ Acetaminophen (Percocet 5/325) 1 tab PRN Q4HRS PRN PO PAIN; Start at 08:45 Oxycodone/ Acetaminophen (Percocet 5/325) 2 tab PRN Q4HRS PRN PO PAIN; Start at 08:45 Vancomycin HCl 2 gm/Sodium Chloride 500 ml @ 250 mls/hr 1X ONCE IV Last administered on 01/19/17 12:30; Start 01/19/17 at 11:00; Stop 01/19/17 at 12:59 ; Status DC Vancomycin HCl (Vanco Per Pharmacy) 1 each PRN DAILY PRN MC SEE COMMENTS Last administered on 01/19/17 13:20; Start 01/19/17 at 10:00 Piperacillin Sod/ Tazobactam Sod (Zosyn Per Pharmacy) 1 each PRN DAILY PRN MC SEE COMMENTS; Start 01/19/17 at 10:00 Piperacillin Sod/ Tazobactam Sod 3.375 gm/Sodium Chloride 100 ml @ 200 mls/hr Q6HRS IV Last administered on 01/20/17 11:18; Start 01/19/17 at 11:00 Acetaminophen (Tylenol) 650 mg PRN Q6HRS PRN PO FEVER; Start 01/19/17 at 10:00 Ondansetron HCl (Zofran) 4 mg PRN Q6HRS PRN IV NAUSEA/VOMITING; Start 01/19/17 at 10:00 Morphine Sulfate 2 mg PRN Q2HR PRN IV PAIN; Start 01/19/17 at 10:00 Tramadol HCl (Ultram) 50 mg PRN Q6HRS PRN PO PAIN; Start 01/19/17 at 10:00 Hydralazine HCl (Apresoline) 10 mg PRN Q4HRS PRN IVP ELEVATED BP, SEE COMMENTS ; Start 01/19/17 at 10:00 Docusate Sodium (Colace) 100 mg PRN DAILY PRN PO CONSTIPATION Last administered on 01/19/17 16:12; Start 01/19/17 at 10:00 Cyclobenzaprine HCl (Flexeril) 10 mg DAILY PO Last administered on 01/20/17 08 :21; Start 01/19/17 at 10:00 Gabapentin (Neurontin) 300 mg TID PO Last administered on 01/20/17 08:22; Start 01/19/17 at 10:00 Lisinopril (Prinivil) 20 mg DAILY PO Last administered on 01/19/17 11:21; Start 01/19/17 at 10:00; Stop 01/20/17 at 10:04; Status DC Meloxicam (Mobic) 15 mg DAILY PO Last administered on 01/20/17 08:22; Start at 10:00 Hydrochlorothiazide (Microzide) 12.5 mg DAILY PO Last administered on 11:21; Start 01/19/17 at 10:00; Stop 01/20/17 at 10:04; Status DC Enoxaparin Sodium (Lovenox 40mg Syringe) 40 mg Q24H SQ Last administered on 11:19; Start 01/20/17 at 10:00 Vancomycin HCl 1.5 gm/Sodium Chloride 500 ml @ 250 mls/hr Q12H IV Last administered on 01/20/17 12:19; Start 01/20/17 at 00:00 Vancomycin HCl 1 each 1X ONCE MC ; Start 01/20/17 at 23:30; Stop 01/20/17 at 23 :31 Sodium Chloride 500 ml @ 500 mls/hr PRN Q3HRS PRN IV BP at 90 or below, max 2 doses Last administered on 01/20/17 00:50; Start 01/19/17 at 20:15; Stop at 00:50; Status DC Iron Sucrose 200 mg/Sodium Chloride 110 ml @ 55 mls/hr DAILY IV ; Start at 14:00; Stop 01/25/17 at 15:00; Status UNV Active Scripts Active Reported Lisinopril-Hctz 20-12.5 Mg Tab (Lisinopril/Hydrochlorothiazide) 1 Each Tablet 1 Tab PO DAILY Cyclobenzaprine Hcl 10 Mg Tablet 10 Mg PO DAILY Gabapentin 300 Mg Capsule 300 Mg PO TID Meloxicam 15 Mg Tablet 15 Mg PO DAILY Vitals/I & O Vital Sign - Last 24 Hours 01/19/17 01/19/17 01/19/17 01/19/17 15:48 19:00 20:00 23:00 Temp 97.7 96.8 97.5 97.7 96.8 97.5 Pulse 56 63 59 Resp 18 18 18 B/P (MAP) 86/57 (67) 92/54 (67) 96/64 (75) Pulse Ox 95 96 98 O2 Delivery Room Air Room Air Room Air Room Air 01/20/17 01/20/17 01/20/17 02:57 07:00 11:00 Temp 96.6 96.6 95.4 96.6 96.6 95.4 Pulse 60 50 54 Resp 18 16 16 B/P (MAP) 96/60 (72) 113/67 (82) 100/59 (73) Pulse Ox 96 99 100 O2 Delivery Room Air Room Air Room Air Intake and Output 01/19/17 01/19/17 01/20/17 15:00 23:00 07:00 Intake Total 1220 ml 1268 ml 1100 ml Output Total 30 ml 850 ml 1800 ml Balance 1190 ml 418 ml -700 ml J CARLOS GUTIERREZ MD January 20, 2017 12:36
[2017-01-20 15:00] VITALS: BP 108/65
[2017-01-20] MEDS: IRON SUCROSE COMPLEX 200 MG in IV NORMAL SALINE 100ML 100 ML IV SCH (15:01)
[2017-01-20 19:00] VITALS: BP 121/76
[2017-01-20 22:58] VITALS: BP 128/83
[2017-01-20] MEDS ORDERED: PIPERACILLIN/TAZOBACTAM 3.375 GM in IV NORMAL SALINE 50ML 50 ML IV SCH (23:31)
[2017-01-20] MEDS: PIPERACILLIN/TAZOBACTAM 3.375 GM in IV NORMAL SALINE 50ML 50 ML IV SCH (23:37)
[2017-01-21] MEDS: VANCOMYCIN 1.5 GM in IV NORMAL SALINE 500ML BAG 500 ML IV SCH (00:12)
[2017-01-21] MEDS: VANCOMYCIN PER PHARMACY MC PRN (00:24)
[2017-01-21 03:00] VITALS: BP 140/77
[2017-01-21 05:16] LABS: BASO # 0.1 x10^3/uL (0.0-0.2); BASO % 0 % (0-3); EOS % 2 % (0-3); HEMATOCRIT 32.1 % (39.0-53.0); HEMOGLOBIN 10.8 g/dL (13.0-17.5); LYMPH # 3.1 x10^3/uL (1.0-4.8); LYMPH % 21 % (24-48); MEAN CORPUSCULAR HEMOGLOBIN 33 pg (25-35); MEAN CORPUSCULAR HGB CONC 34 g/dL (31-37); MEAN CORPUSCULAR VOLUME 98 fL (79-100); MONO % 8 % (0-9); NEUT % 68 % (31-73); PLATELET COUNT 588 x10^3/uL (140-400); RED BLOOD COUNT 3.28 x10^6/uL (4.30-5.70); RED CELL DISTRIBUTION WIDTH 13.2 % (11.5-14.5); WHITE BLOOD COUNT 14.6 x10^3/uL (4.0-11.0)
[2017-01-21 05:42] LABS: CALCIUM 8.3 mg/dL (8.5-10.1); CREATININE 1.1 mg/dL (0.7-1.3); GFR 70.3; POTASSIUM 3.7 mmol/L (3.5-5.1)
[2017-01-21] MEDS: PIPERACILLIN/TAZOBACTAM 3.375 GM in IV NORMAL SALINE 50ML 50 ML IV SCH ×3 (06:24→17:06)
[2017-01-21 07:00] VITALS: BP 155/73
--- NOTE | 2017-01-21 08:22 | PDOC ---
SURGICAL PROGRESS NOTE Subjective Doing well, packing fell out after BM Vital Signs Vital Signs Date Time Temp Pulse Resp B/P (MAP) Pulse Ox O2 Delivery O2 Flow Rate FiO2 01/21/17 03:00 97.9 69 18 140/77 (98) 92 Room Air 97.9 I&O Intake and Output 01/21/17 07:00 Intake Total 3516 ml Output Total 1500 ml Balance 2016 ml Intake Oral 2350 ml IV Total 1166 ml Output Urine Total 1500 ml # Bowel Movements 2 PATIENT HAS A CHAN: Yes General: Alert, Oriented X3, Cooperative, No acute distress Skin: Other (wound clean with minimal erythema, needs to be repacked) Labs Laboratory Tests Test 01/19/17 16:20 01/20/17 03:52 01/20/17 23:30 01/21/17 04:20 Iron Level 18 ug/dL (65-175) Total Iron Binding Capacity 155 ug/dL (250-450) Iron Saturation 12 % (15-34) White Blood Count 13.5 x10^3/uL (4.0-11.0) 14.6 x10^3/uL (4.0-11.0) Red Blood Count 3.18 x10^6/uL (4.30-5.70) 3.28 x10^6/uL (4.30-5.70) Hemoglobin 10.3 g/dL (13.0-17.5) 10.8 g/dL (13.0-17.5) Hematocrit 30.5 % (39.0-53.0) 32.1 % (39.0-53.0) Mean Corpuscular Volume 96 fL (79-100) 98 fL (79-100) Mean Corpuscular Hemoglobin 32 pg (25-35) 33 pg (25-35) Mean Corpuscular Hemoglobin Concent 34 g/dL (31-37) 34 g/dL (31-37) Red Cell Distribution Width 12.9 % (11.5-14.5) 13.2 % (11.5-14.5) Platelet Count 528 x10^3/uL (140-400) 588 x10^3/uL (140-400) Neutrophils (%) (Auto) 74 % (31-73) 68 % (31-73) Lymphocytes (%) (Auto) 16 % (24-48) 21 % (24-48) Monocytes (%) (Auto) 10 % (0-9) 8 % (0-9) Eosinophils (%) (Auto) 1 % (0-3) 2 % (0-3) Basophils (%) (Auto) 0 % (0-3) 0 % (0-3) Neutrophils # (Auto) 10.0 x10^3uL (1.8-7.7) 10.0 x10^3uL (1.8-7.7) Lymphocytes # (Auto) 2.1 x10^3/uL (1.0-4.8) 3.1 x10^3/uL (1.0-4.8) Monocytes # (Auto) 1.3 x10^3/uL (0.0-1.1) 1.2 x10^3/uL (0.0-1.1) Eosinophils # (Auto) 0.1 x10^3/uL (0.0-0.7) 0.3 x10^3/uL (0.0-0.7) Basophils # (Auto) 0.0 x10^3/uL (0.0-0.2) 0.1 x10^3/uL (0.0-0.2) Sodium Level 141 mmol/L (136-145) 144 mmol/L (136-145) Potassium Level 4.0 mmol/L (3.5-5.1) 3.7 mmol/L (3.5-5.1) Chloride Level 107 mmol/L (98-107) 109 mmol/L (98-107) Carbon Dioxide Level 26 mmol/L (21-32) 26 mmol/L (21-32) Anion Gap 8 (6-14) 9 (6-14) Blood Urea Nitrogen 16 mg/dL (8-26) 16 mg/dL (8-26) Creatinine 1.0 mg/dL (0.7-1.3) 1.1 mg/dL (0.7-1.3) Estimated GFR (Cockcroft-Gault) 78.5 70.3 Glucose Level 122 mg/dL (70-99) 101 mg/dL (70-99) Calcium Level 8.1 mg/dL (8.5-10.1) 8.3 mg/dL (8.5-10.1) Vancomycin Level Trough 14.2 mcg/mL (10.0-20.0) Vancomycin Last Dose Date 01/20/17 Vancomycin Last Dose Time 1200 Laboratory Tests Test 01/20/17 23:30 01/21/17 04:20 Vancomycin Level Trough 14.2 mcg/mL (10.0-20.0) Vancomycin Last Dose Date 01/20/17 Vancomycin Last Dose Time 1200 White Blood Count 14.6 x10^3/uL (4.0-11.0) Red Blood Count 3.28 x10^6/uL (4.30-5.70) Hemoglobin 10.8 g/dL (13.0-17.5) Hematocrit 32.1 % (39.0-53.0) Mean Corpuscular Volume 98 fL (79-100) Mean Corpuscular Hemoglobin 33 pg (25-35) Mean Corpuscular Hemoglobin Concent 34 g/dL (31-37) Red Cell Distribution Width 13.2 % (11.5-14.5) Platelet Count 588 x10^3/uL (140-400) Neutrophils (%) (Auto) 68 % (31-73) Lymphocytes (%) (Auto) 21 % (24-48) Monocytes (%) (Auto) 8 % (0-9) Eosinophils (%) (Auto) 2 % (0-3) Basophils (%) (Auto) 0 % (0-3) Neutrophils # (Auto) 10.0 x10^3uL (1.8-7.7) Lymphocytes # (Auto) 3.1 x10^3/uL (1.0-4.8) Monocytes # (Auto) 1.2 x10^3/uL (0.0-1.1) Eosinophils # (Auto) 0.3 x10^3/uL (0.0-0.7) Basophils # (Auto) 0.1 x10^3/uL (0.0-0.2) Sodium Level 144 mmol/L (136-145) Potassium Level 3.7 mmol/L (3.5-5.1) Chloride Level 109 mmol/L (98-107) Carbon Dioxide Level 26 mmol/L (21-32) Anion Gap 9 (6-14) Blood Urea Nitrogen 16 mg/dL (8-26) Creatinine 1.1 mg/dL (0.7-1.3) Estimated GFR (Cockcroft-Gault) 70.3 Glucose Level 101 mg/dL (70-99) Calcium Level 8.3 mg/dL (8.5-10.1) Problem List Problems Medical Problems: (1) Liver metastases Status: Acute (2) Pancreatic cancer Status: Acute (3) Rectal abscess Status: Acute Assessment/Plan perirectal abscess s/p drainage Continue local wound care and abx Abnormal CT of the pancreas being worked up, lab pending Problems: NICCI ESTRADA MD January 21, 2017 08:22
[2017-01-21] MEDS: GABAPENTIN 300 MG CAPSULE. PO SCH ×3 (09:11→21:51)
[2017-01-21] MEDS: MELOXICAM 7.5 MG TABLET PO SCH (09:11)
[2017-01-21] MEDS: CYCLOBENZAPRINE 10 MG TABLET. PO SCH (09:12)
--- NOTE | 2017-01-21 09:34 | PDOC ---
Infectious Disease Note Subjective Subjective Comfortable, denies pain Starting to having some loose stool Appetite good Mother present, no concerns voiced at this time. ROS ROS GEN: Denies fevers, chills, sweats HEENT: Denies blurred vision, sore throat CV: Denies chest pain RESP: Denies shortness of air, cough GI: Denies n/v/d NEURO: Denies confusion, dizziness MSK: Denies weakness, joint pain/swelling Vital Sign Vital Signs Vital Signs Date Time Temp Pulse Resp B/P (MAP) Pulse Ox O2 Delivery O2 Flow Rate FiO2 01/21/17 03:00 97.9 69 18 140/77 (98) 92 Room Air 97.9 Physical Exam PHYSICAL EXAM GENERAL: NAD, Alert HEENT: PERRL, OC/OP - clear NECK: Supple, no JVD, no LN LUNGS: Clear HEART: S1S2, no gallop, no murmur ABD: Soft, NT, no organomegaly, no rebound Kunz EXT: No edema, no cyanosis [employer] MACHINE OPERATOR: Alert, oriented x 3, no focal neurologic deficit SKIN: No rash IV: ok Labs Lab Laboratory Tests Test 01/20/17 23:30 01/21/17 04:20 Vancomycin Level Trough 14.2 mcg/mL (10.0-20.0) Vancomycin Last Dose Date 01/20/17 Vancomycin Last Dose Time 1200 White Blood Count 14.6 x10^3/uL (4.0-11.0) Red Blood Count 3.28 x10^6/uL (4.30-5.70) Hemoglobin 10.8 g/dL (13.0-17.5) Hematocrit 32.1 % (39.0-53.0) Mean Corpuscular Volume 98 fL (79-100) Mean Corpuscular Hemoglobin 33 pg (25-35) Mean Corpuscular Hemoglobin Concent 34 g/dL (31-37) Red Cell Distribution Width 13.2 % (11.5-14.5) Platelet Count 588 x10^3/uL (140-400) Neutrophils (%) (Auto) 68 % (31-73) Lymphocytes (%) (Auto) 21 % (24-48) Monocytes (%) (Auto) 8 % (0-9) Eosinophils (%) (Auto) 2 % (0-3) Basophils (%) (Auto) 0 % (0-3) Neutrophils # (Auto) 10.0 x10^3uL (1.8-7.7) Lymphocytes # (Auto) 3.1 x10^3/uL (1.0-4.8) Monocytes # (Auto) 1.2 x10^3/uL (0.0-1.1) Eosinophils # (Auto) 0.3 x10^3/uL (0.0-0.7) Basophils # (Auto) 0.1 x10^3/uL (0.0-0.2) Sodium Level 144 mmol/L (136-145) Potassium Level 3.7 mmol/L (3.5-5.1) Chloride Level 109 mmol/L (98-107) Carbon Dioxide Level 26 mmol/L (21-32) Anion Gap 9 (6-14) Blood Urea Nitrogen 16 mg/dL (8-26) Creatinine 1.1 mg/dL (0.7-1.3) Estimated GFR (Cockcroft-Gault) 70.3 Glucose Level 101 mg/dL (70-99) Calcium Level 8.3 mg/dL (8.5-10.1) Objective Assessment Cheryl-rectal abscess, s/p I and D, 01/19. Intra-op GS no organisms. Strep per micro Fever better Leukocytosis- mild increase ? concentration Pancreatic mass with possible liver mets Urinary retention requiring indwelling [place] Plan Plan of Care D/c Vanc Cont Zosyn. Had buttock abscess 2 years ago Add probiotics monitor WBC, Cr and temp Wait results of i/u intra-op cultures Tumor markers pending. Await onc eval. Await IR eval for biopsy per GI D/w mother ZULY HANNA MD January 21, 2017 09:34
[2017-01-21] MEDS: IRON SUCROSE COMPLEX 200 MG in IV NORMAL SALINE 100ML 100 ML IV SCH (09:57)
[2017-01-21] MEDS: IV NORMAL SALINE 1000ML BAG 1,000 ML IV SCH ×2 (09:57→21:52)
[2017-01-21] MEDS: ENOXAPARIN 40 MG/0.4 ML SYRINGE. SQ SCH (10:03)
--- NOTE | 2017-01-21 10:07 | PDOC ---
G I PROGRESS NOTE Subjective No GI complaints. Physical Exam Lungs clear RRR Abdomen soft, not tender nor distended. Review of Relevant I have reviewed the following items shante (where applicable) has been applied. Labs Laboratory Tests Test 01/19/17 16:20 01/20/17 03:52 01/20/17 23:30 01/21/17 04:20 Iron Level 18 ug/dL (65-175) Total Iron Binding Capacity 155 ug/dL (250-450) Iron Saturation 12 % (15-34) White Blood Count 13.5 x10^3/uL (4.0-11.0) 14.6 x10^3/uL (4.0-11.0) Red Blood Count 3.18 x10^6/uL (4.30-5.70) 3.28 x10^6/uL (4.30-5.70) Hemoglobin 10.3 g/dL (13.0-17.5) 10.8 g/dL (13.0-17.5) Hematocrit 30.5 % (39.0-53.0) 32.1 % (39.0-53.0) Mean Corpuscular Volume 96 fL (79-100) 98 fL (79-100) Mean Corpuscular Hemoglobin 32 pg (25-35) 33 pg (25-35) Mean Corpuscular Hemoglobin Concent 34 g/dL (31-37) 34 g/dL (31-37) Red Cell Distribution Width 12.9 % (11.5-14.5) 13.2 % (11.5-14.5) Platelet Count 528 x10^3/uL (140-400) 588 x10^3/uL (140-400) Neutrophils (%) (Auto) 74 % (31-73) 68 % (31-73) Lymphocytes (%) (Auto) 16 % (24-48) 21 % (24-48) Monocytes (%) (Auto) 10 % (0-9) 8 % (0-9) Eosinophils (%) (Auto) 1 % (0-3) 2 % (0-3) Basophils (%) (Auto) 0 % (0-3) 0 % (0-3) Neutrophils # (Auto) 10.0 x10^3uL (1.8-7.7) 10.0 x10^3uL (1.8-7.7) Lymphocytes # (Auto) 2.1 x10^3/uL (1.0-4.8) 3.1 x10^3/uL (1.0-4.8) Monocytes # (Auto) 1.3 x10^3/uL (0.0-1.1) 1.2 x10^3/uL (0.0-1.1) Eosinophils # (Auto) 0.1 x10^3/uL (0.0-0.7) 0.3 x10^3/uL (0.0-0.7) Basophils # (Auto) 0.0 x10^3/uL (0.0-0.2) 0.1 x10^3/uL (0.0-0.2) Sodium Level 141 mmol/L (136-145) 144 mmol/L (136-145) Potassium Level 4.0 mmol/L (3.5-5.1) 3.7 mmol/L (3.5-5.1) Chloride Level 107 mmol/L (98-107) 109 mmol/L (98-107) Carbon Dioxide Level 26 mmol/L (21-32) 26 mmol/L (21-32) Anion Gap 8 (6-14) 9 (6-14) Blood Urea Nitrogen 16 mg/dL (8-26) 16 mg/dL (8-26) Creatinine 1.0 mg/dL (0.7-1.3) 1.1 mg/dL (0.7-1.3) Estimated GFR (Cockcroft-Gault) 78.5 70.3 Glucose Level 122 mg/dL (70-99) 101 mg/dL (70-99) Calcium Level 8.1 mg/dL (8.5-10.1) 8.3 mg/dL (8.5-10.1) Vancomycin Level Trough 14.2 mcg/mL (10.0-20.0) Vancomycin Last Dose Date 01/20/17 Vancomycin Last Dose Time 1200 Laboratory Tests Test 01/20/17 23:30 01/21/17 04:20 Vancomycin Level Trough 14.2 mcg/mL (10.0-20.0) Vancomycin Last Dose Date 01/20/17 Vancomycin Last Dose Time 1200 White Blood Count 14.6 x10^3/uL (4.0-11.0) Red Blood Count 3.28 x10^6/uL (4.30-5.70) Hemoglobin 10.8 g/dL (13.0-17.5) Hematocrit 32.1 % (39.0-53.0) Mean Corpuscular Volume 98 fL (79-100) Mean Corpuscular Hemoglobin 33 pg (25-35) Mean Corpuscular Hemoglobin Concent 34 g/dL (31-37) Red Cell Distribution Width 13.2 % (11.5-14.5) Platelet Count 588 x10^3/uL (140-400) Neutrophils (%) (Auto) 68 % (31-73) Lymphocytes (%) (Auto) 21 % (24-48) Monocytes (%) (Auto) 8 % (0-9) Eosinophils (%) (Auto) 2 % (0-3) Basophils (%) (Auto) 0 % (0-3) Neutrophils # (Auto) 10.0 x10^3uL (1.8-7.7) Lymphocytes # (Auto) 3.1 x10^3/uL (1.0-4.8) Monocytes # (Auto) 1.2 x10^3/uL (0.0-1.1) Eosinophils # (Auto) 0.3 x10^3/uL (0.0-0.7) Basophils # (Auto) 0.1 x10^3/uL (0.0-0.2) Sodium Level 144 mmol/L (136-145) Potassium Level 3.7 mmol/L (3.5-5.1) Chloride Level 109 mmol/L (98-107) Carbon Dioxide Level 26 mmol/L (21-32) Anion Gap 9 (6-14) Blood Urea Nitrogen 16 mg/dL (8-26) Creatinine 1.1 mg/dL (0.7-1.3) Estimated GFR (Cockcroft-Gault) 70.3 Glucose Level 101 mg/dL (70-99) Calcium Level 8.3 mg/dL (8.5-10.1) Microbiology 01/19/17 Gram Stain - Final, Complete Tumor markers pending. Medications Current Medications Iohexol (Omnipaque 300 Mg/ml) 75 ml 1X ONCE IV Last administered on 01/18/17t 17:28; Start 01/18/17 at 15:45; Stop 01/18/17 at 15:46; Status DC Iohexol (Omnipaque 240 Mg/ml) 30 ml 1X ONCE PO Last administered on 01/18/17 15:45; Start 01/18/17 at 15:45; Stop 01/18/17 at 15:46; Status DC Info (Do NOT chart on this entry -- for MONITORING) 1 each PRN DAILY PRN MC SEE COMMENTS; Start 01/18/17 at 16:00; Stop 01/20/17 at 15:59; Status DC Fentanyl Citrate (Fentanyl 2ml Vial) 50 mcg 1X ONCE IV Last administered on 16:15; Start 01/18/17 at 16:15; Stop 01/18/17 at 16:16; Status DC Ondansetron HCl (Zofran) 4 mg 1X ONCE IV Last administered on 01/18/17 16:14 ; Start 01/18/17 at 16:15; Stop 01/18/17 at 16:16; Status DC Morphine Sulfate 5 mg 1X ONCE IV Last administered on 01/18/17 17:59; Start 01/18/17 at 18:15; Stop 01/18/17 at 18:16; Status DC Ondansetron HCl (Zofran) 4 mg PRN Q8HRS PRN IV NAUSEA/VOMITING; Start 01/18/17 at 21:15; Stop 01/19/17 at 21:14; Status DC Morphine Sulfate 4 mg PRN Q2HR PRN IV SEVERE PAIN Last administered on 04:13; Start 01/18/17 at 21:15; Stop 01/19/17 at 10:20; Status DC Acetaminophen (Tylenol) 650 mg PRN Q4HRS PRN PO FEVER Last administered on 01/18 22:13; Start 01/18/17 at 21:15; Stop 01/19/17 at 10:20; Status DC Sodium Chloride 1,000 ml @ 75 mls/hr [id number] IV Last administered on 09:57; Start 01/18/17 at 21:15 Metronidazole 100 ml @ 100 mls/hr Q8HRS IV Last administered on 01/19/17 06: 12; Start 01/18/17 at 22:00; Stop 01/19/17 at 10:00; Status DC Ciprofloxacin Lactate 200 ml @ 200 mls/hr Q12HR IV Last administered on 22:08; Start 01/18/17 at 22:00; Stop 01/19/17 at 10:00; Status DC Bupivacaine HCl/ Epinephrine Bitart (Sensorcain-Mpf Epi 0.5%-[id number]) 30 ml STK -MED ONCE .ROUTE Last administered on 01/19/17 08:28; Start 01/19/17 at 07:02 ; Stop 01/19/17 at 07:03; Status DC Dexamethasone Sodium Phosphate (Decadron) 20 mg STK-MED ONCE .ROUTE ; Start at 07:27; Stop 01/19/17 at 07:28; Status DC Ondansetron HCl (Zofran) 4 mg STK-MED ONCE .ROUTE ; Start 01/19/17 at 07:27; Stop 01/19/17 at 07:28; Status DC Propofol 20 ml @ As Directed STK-MED ONCE IV ; Start 01/19/17 at 07:27; Stop at 07:28; Status DC Lidocaine HCl (Lidocaine Pf 2% Vial) 5 ml STK-MED ONCE .ROUTE ; Start 01/19/17 at 07:27; Stop 01/19/17 at 07:28; Status DC Fentanyl Citrate (Fentanyl 2ml Vial) 100 mcg STK-MED ONCE .ROUTE ; Start at 07:32; Stop 01/19/17 at 07:33; Status DC Ondansetron HCl (Zofran) 4 mg PRN Q6HRS PRN IV NAUSEA/VOMITING; Start 01/19/17 at 08:15; Stop 01/19/17 at 18:00; Status DC Fentanyl Citrate (Fentanyl 2ml Vial) 25 mcg PRN Q5MIN PRN IV MILD PAIN; Start 01/19/17 at 08:15; Stop 01/19/17 at 10:41; Status DC Fentanyl Citrate (Fentanyl 2ml Vial) 50 mcg PRN Q5MIN PRN IV MODERATE PAIN; Start 01/19/17 at 08:15; Stop 01/19/17 at 10:41; Status DC Morphine Sulfate 1 mg PRN Q10MIN PRN IV SEVERE PAIN; Start 01/19/17 at 08:15; Stop 01/19/17 at 10:41; Status DC Ringer's Solution 1,000 ml @ 30 mls/hr Q24H IV ; Start 01/19/17 at 08:02; Stop 01/19/17 at 10:35; Status DC Lidocaine HCl 2 ml PRN 1X PRN ID PRIOR TO IV START; Start 01/19/17 at 08:15; Stop 01/19/17 at 18:00; Status DC Hydromorphone HCl (Dilaudid) 0.5 mg PRN Q10MIN PRN IV SEV PAIN, Second choice; Start 01/19/17 at 08:15; Stop 01/19/17 at 10:41; Status DC Prochlorperazine Edisylate (Compazine) 5 mg PACU PRN PRN IV NAUSEA, MRX1; Start 01/19/17 at 08:15; Stop 01/19/17 at 10:41; Status DC Fentanyl Citrate (Fentanyl 2ml Vial) 100 mcg STK-MED ONCE .ROUTE ; Start at 08:31; Stop 01/19/17 at 08:32; Status DC Oxycodone/ Acetaminophen (Percocet 5/325) 1 tab PRN Q4HRS PRN PO PAIN; Start at 08:45 Oxycodone/ Acetaminophen (Percocet 5/325) 2 tab PRN Q4HRS PRN PO PAIN; Start at 08:45 Vancomycin HCl 2 gm/Sodium Chloride 500 ml @ 250 mls/hr 1X ONCE IV Last administered on 01/19/17t 12:30; Start 01/19/17 at 11:00; Stop 01/19/17 at 12:59 ; Status DC Vancomycin HCl (Vanco Per Pharmacy) 1 each PRN DAILY PRN MC SEE COMMENTS Last administered on 01/21/17t 00:24; Start 01/19/17 at 10:00; Stop 01/21/17 at 09:42 ; Status DC Piperacillin Sod/ Tazobactam Sod (Zosyn Per Pharmacy) 1 each PRN DAILY PRN MC SEE COMMENTS; Start 01/19/17 at 10:00 Piperacillin Sod/ Tazobactam Sod 3.375 gm/Sodium Chloride 100 ml @ 200 mls/hr Q6HRS IV Last administered on 01/20/17 16:58; Start 01/19/17 at 11:00; Stop at 23:31; Status DC Acetaminophen (Tylenol) 650 mg PRN Q6HRS PRN PO FEVER; Start 01/19/17 at 10:00 Ondansetron HCl (Zofran) 4 mg PRN Q6HRS PRN IV NAUSEA/VOMITING; Start 01/19/17 at 10:00 Morphine Sulfate 2 mg PRN Q2HR PRN IV PAIN; Start 01/19/17 at 10:00 Tramadol HCl (Ultram) 50 mg PRN Q6HRS PRN PO PAIN; Start 01/19/17 at 10:00 Hydralazine HCl (Apresoline) 10 mg PRN Q4HRS PRN IVP ELEVATED BP, SEE COMMENTS ; Start 01/19/17 at 10:00 Docusate Sodium (Colace) 100 mg PRN DAILY PRN PO CONSTIPATION Last administered on 01/19/17 16:12; Start 01/19/17 at 10:00 Cyclobenzaprine HCl (Flexeril) 10 mg DAILY PO Last administered on 01/21/17 09 :12; Start 01/19/17 at 10:00 Gabapentin (Neurontin) 300 mg TID PO Last administered on 01/21/17 09:11; Start 01/19/17 at 10:00 Lisinopril (Prinivil) 20 mg DAILY PO Last administered on 01/19/17 11:21; Start 01/19/17 at 10:00; Stop 01/20/17 at 10:04; Status DC Meloxicam (Mobic) 15 mg DAILY PO Last administered on 01/21/17 09:11; Start at 10:00 Hydrochlorothiazide (Microzide) 12.5 mg DAILY PO Last administered on 11:21; Start 01/19/17 at 10:00; Stop 01/20/17 at 10:04; Status DC Enoxaparin Sodium (Lovenox 40mg Syringe) 40 mg Q24H SQ Last administered on 11:19; Start 01/20/17 at 10:00 Vancomycin HCl 1.5 gm/Sodium Chloride 500 ml @ 250 mls/hr Q12H IV Last administered on 01/21/17 00:12; Start 01/20/17 at 00:00; Stop 01/21/17 at 09:42 ; Status DC Vancomycin HCl 1 each 1X ONCE MC Last administered on 01/20/17 23:27; Start 01/20/17 at 23:30; Stop 01/20/17 at 23:31; Status DC Sodium Chloride 500 ml @ 500 mls/hr PRN Q3HRS PRN IV BP at 90 or below, max 2 doses Last administered on 01/20/17 00:50; Start 01/19/17 at 20:15; Stop at 00:50; Status DC Iron Sucrose 200 mg/Sodium Chloride 110 ml @ 55 mls/hr DAILY IV Last administered on 01/21/17 09:57; Start 01/20/17 at 14:00; Stop 01/25/17 at 15:00 Piperacillin Sod/ Tazobactam Sod 3.375 gm/Sodium Chloride 50 ml @ 100 mls/hr Q6HRS IV ; Start 01/20/17 at 23:31; Status Cancel Piperacillin Sod/ Tazobactam Sod 3.375 gm/Sodium Chloride 50 ml @ 100 mls/hr Q6HRS IV Last administered on 01/21/17 06:24; Start 01/21/17 at 00:00 Lactobacillus Acidophilus (Bacid, Debra-Bid) 1 tab TIDWMEALS PO ; Start 01/21/17 at 12:00 Active Scripts Active Reported Lisinopril-Hctz 20-12.5 Mg Tab (Lisinopril/Hydrochlorothiazide) 1 Each Tablet 1 Tab PO DAILY Cyclobenzaprine Hcl 10 Mg Tablet 10 Mg PO DAILY Gabapentin 300 Mg Capsule 300 Mg PO TID Meloxicam 15 Mg Tablet 15 Mg PO DAILY Vitals/I & O Vital Sign - Last 24 Hours 01/20/17 01/20/17 01/20/17 01/20/17 11:00 15:00 19:00 20:32 Temp 95.4 97.7 97.7 95.4 97.7 97.7 Pulse 54 60 64 Resp 16 18 18 B/P (MAP) 100/59 (73) 108/65 (79) 121/76 (91) Pulse Ox 100 97 97 O2 Delivery Room Air Room Air Room Air Room Air 01/20/17 01/21/17 22:58 03:00 Temp 96.3 97.9 96.3 97.9 Pulse 61 69 Resp 18 18 B/P (MAP) 128/83 (98) 140/77 (98) Pulse Ox 91 92 O2 Delivery Room Air Room Air Intake and Output 01/20/17 01/20/17 01/21/17 15:00 23:00 07:00 Intake Total 500 ml 1850 ml 1166 ml Output Total 900 ml 600 ml Balance 500 ml 950 ml 566 ml Images Awaiting IR opinion re: hepatic lesions. Problem List Problems Medical Problems: (1) Liver metastases Status: Acute (2) Pancreatic cancer Status: Acute (3) Rectal abscess Status: Acute Assessment Perirectal abcess, recurrent, s/p I and D. Underlying IBD? OBDULIA Pancreatic/hepatic lesions, nature? Plan of Care: Continue current Tx, Mgmt Plan of Care Note Await IR opinion. CULLEN MERCADO MD January 21, 2017 10:07
[2017-01-21 11:57] VITALS: BP 160/91
[2017-01-21] MEDS: LACTOBACILLUS ACIDOPH & BULGAR 1 TABLET. PO SCH ×2 (12:00→17:08)
--- NOTE | 2017-01-21 12:19 | PDOC ---
PROGRESS NOTES Chief Complaint Chief Complaint 1. right side darci rectal abscess s/p I and D on 01/19 2. liver and pancreatic mass found in CT 3. htn 5. depression 6. sepsis with 1 7. tobaccoism 8, anemia, iron deficiency 9. urinary retention, 2/2 1 likely History of Present Illness History of Present Illness rectal pain better would like oliveira out feels near baseline fu with id, sx, gi ,onco consult zosyn, vanco check ca199, CEA and IR consult pending for possible liver lesions bx iv iron, trans to PO Vitals Vitals Vital Signs Date Time Temp Pulse Resp B/P (MAP) Pulse Ox O2 Delivery O2 Flow Rate FiO2 01/21/17 11:57 97.5 70 18 160/91 (114) 93 Room Air 97.5 Physical Exam General: Alert, Oriented X3, Cooperative, No acute distress Heart: Regular rate, Normal S1, Normal S2, No murmurs Lungs: Clear Abdomen: Normal bowel sounds, No tenderness, No hepatosplenomegaly, No masses Extremities: No clubbing, No cyanosis, No edema Skin: Other (wound clean with minimal erythema, needs to be repacked) Labs LABS Laboratory Tests Test 01/20/17 23:30 01/21/17 04:20 Vancomycin Level Trough 14.2 mcg/mL (10.0-20.0) Vancomycin Last Dose Date 01/20/17 Vancomycin Last Dose Time 1200 White Blood Count 14.6 x10^3/uL (4.0-11.0) Red Blood Count 3.28 x10^6/uL (4.30-5.70) Hemoglobin 10.8 g/dL (13.0-17.5) Hematocrit 32.1 % (39.0-53.0) Mean Corpuscular Volume 98 fL (79-100) Mean Corpuscular Hemoglobin 33 pg (25-35) Mean Corpuscular Hemoglobin Concent 34 g/dL (31-37) Red Cell Distribution Width 13.2 % (11.5-14.5) Platelet Count 588 x10^3/uL (140-400) Neutrophils (%) (Auto) 68 % (31-73) Lymphocytes (%) (Auto) 21 % (24-48) Monocytes (%) (Auto) 8 % (0-9) Eosinophils (%) (Auto) 2 % (0-3) Basophils (%) (Auto) 0 % (0-3) Neutrophils # (Auto) 10.0 x10^3uL (1.8-7.7) Lymphocytes # (Auto) 3.1 x10^3/uL (1.0-4.8) Monocytes # (Auto) 1.2 x10^3/uL (0.0-1.1) Eosinophils # (Auto) 0.3 x10^3/uL (0.0-0.7) Basophils # (Auto) 0.1 x10^3/uL (0.0-0.2) Sodium Level 144 mmol/L (136-145) Potassium Level 3.7 mmol/L (3.5-5.1) Chloride Level 109 mmol/L (98-107) Carbon Dioxide Level 26 mmol/L (21-32) Anion Gap 9 (6-14) Blood Urea Nitrogen 16 mg/dL (8-26) Creatinine 1.1 mg/dL (0.7-1.3) Estimated GFR (Cockcroft-Gault) 70.3 Glucose Level 101 mg/dL (70-99) Calcium Level 8.3 mg/dL (8.5-10.1) Review of Systems Review of Systems no n.v.d + insomnia no events Assessment and Plan Assessmemt and Plan Problems Medical Problems: (1) Liver metastases Status: Acute (2) Pancreatic cancer Status: Acute (3) Rectal abscess Status: Acute Problems: Comment Review of Relevant I have reviewed the following items shante (where applicable) has been applied. Labs Laboratory Tests Test 01/19/17 16:20 01/20/17 03:52 01/20/17 23:30 01/21/17 04:20 Iron Level 18 ug/dL (65-175) Total Iron Binding Capacity 155 ug/dL (250-450) Iron Saturation 12 % (15-34) White Blood Count 13.5 x10^3/uL (4.0-11.0) 14.6 x10^3/uL (4.0-11.0) Red Blood Count 3.18 x10^6/uL (4.30-5.70) 3.28 x10^6/uL (4.30-5.70) Hemoglobin 10.3 g/dL (13.0-17.5) 10.8 g/dL (13.0-17.5) Hematocrit 30.5 % (39.0-53.0) 32.1 % (39.0-53.0) Mean Corpuscular Volume 96 fL (79-100) 98 fL (79-100) Mean Corpuscular Hemoglobin 32 pg (25-35) 33 pg (25-35) Mean Corpuscular Hemoglobin Concent 34 g/dL (31-37) 34 g/dL (31-37) Red Cell Distribution Width 12.9 % (11.5-14.5) 13.2 % (11.5-14.5) Platelet Count 528 x10^3/uL (140-400) 588 x10^3/uL (140-400) Neutrophils (%) (Auto) 74 % (31-73) 68 % (31-73) Lymphocytes (%) (Auto) 16 % (24-48) 21 % (24-48) Monocytes (%) (Auto) 10 % (0-9) 8 % (0-9) Eosinophils (%) (Auto) 1 % (0-3) 2 % (0-3) Basophils (%) (Auto) 0 % (0-3) 0 % (0-3) Neutrophils # (Auto) 10.0 x10^3uL (1.8-7.7) 10.0 x10^3uL (1.8-7.7) Lymphocytes # (Auto) 2.1 x10^3/uL (1.0-4.8) 3.1 x10^3/uL (1.0-4.8) Monocytes # (Auto) 1.3 x10^3/uL (0.0-1.1) 1.2 x10^3/uL (0.0-1.1) Eosinophils # (Auto) 0.1 x10^3/uL (0.0-0.7) 0.3 x10^3/uL (0.0-0.7) Basophils # (Auto) 0.0 x10^3/uL (0.0-0.2) 0.1 x10^3/uL (0.0-0.2) Sodium Level 141 mmol/L (136-145) 144 mmol/L (136-145) Potassium Level 4.0 mmol/L (3.5-5.1) 3.7 mmol/L (3.5-5.1) Chloride Level 107 mmol/L (98-107) 109 mmol/L (98-107) Carbon Dioxide Level 26 mmol/L (21-32) 26 mmol/L (21-32) Anion Gap 8 (6-14) 9 (6-14) Blood Urea Nitrogen 16 mg/dL (8-26) 16 mg/dL (8-26) Creatinine 1.0 mg/dL (0.7-1.3) 1.1 mg/dL (0.7-1.3) Estimated GFR (Cockcroft-Gault) 78.5 70.3 Glucose Level 122 mg/dL (70-99) 101 mg/dL (70-99) Calcium Level 8.1 mg/dL (8.5-10.1) 8.3 mg/dL (8.5-10.1) Vancomycin Level Trough 14.2 mcg/mL (10.0-20.0) Vancomycin Last Dose Date 01/20/17 Vancomycin Last Dose Time 1200 Laboratory Tests Test 01/20/17 23:30 01/21/17 04:20 Vancomycin Level Trough 14.2 mcg/mL (10.0-20.0) Vancomycin Last Dose Date 01/20/17 Vancomycin Last Dose Time 1200 White Blood Count 14.6 x10^3/uL (4.0-11.0) Red Blood Count 3.28 x10^6/uL (4.30-5.70) Hemoglobin 10.8 g/dL (13.0-17.5) Hematocrit 32.1 % (39.0-53.0) Mean Corpuscular Volume 98 fL (79-100) Mean Corpuscular Hemoglobin 33 pg (25-35) Mean Corpuscular Hemoglobin Concent 34 g/dL (31-37) Red Cell Distribution Width 13.2 % (11.5-14.5) Platelet Count 588 x10^3/uL (140-400) Neutrophils (%) (Auto) 68 % (31-73) Lymphocytes (%) (Auto) 21 % (24-48) Monocytes (%) (Auto) 8 % (0-9) Eosinophils (%) (Auto) 2 % (0-3) Basophils (%) (Auto) 0 % (0-3) Neutrophils # (Auto) 10.0 x10^3uL (1.8-7.7) Lymphocytes # (Auto) 3.1 x10^3/uL (1.0-4.8) Monocytes # (Auto) 1.2 x10^3/uL (0.0-1.1) Eosinophils # (Auto) 0.3 x10^3/uL (0.0-0.7) Basophils # (Auto) 0.1 x10^3/uL (0.0-0.2) Sodium Level 144 mmol/L (136-145) Potassium Level 3.7 mmol/L (3.5-5.1) Chloride Level 109 mmol/L (98-107) Carbon Dioxide Level 26 mmol/L (21-32) Anion Gap 9 (6-14) Blood Urea Nitrogen 16 mg/dL (8-26) Creatinine 1.1 mg/dL (0.7-1.3) Estimated GFR (Cockcroft-Gault) 70.3 Glucose Level 101 mg/dL (70-99) Calcium Level 8.3 mg/dL (8.5-10.1) Microbiology 01/19/17 Gram Stain - Final, Complete Medications Current Medications Iohexol (Omnipaque 300 Mg/ml) 75 ml 1X ONCE IV Last administered on 01/18/17 17:28; Start 01/18/17 at 15:45; Stop 01/18/17 at 15:46; Status DC Iohexol (Omnipaque 240 Mg/ml) 30 ml 1X ONCE PO Last administered on 01/18/17 15:45; Start 01/18/17 at 15:45; Stop 01/18/17 at 15:46; Status DC Info (Do NOT chart on this entry -- for MONITORING) 1 each PRN DAILY PRN MC SEE COMMENTS; Start 01/18/17 at 16:00; Stop 01/20/17 at 15:59; Status DC Fentanyl Citrate (Fentanyl 2ml Vial) 50 mcg 1X ONCE IV Last administered on 16:15; Start 01/18/17 at 16:15; Stop 01/18/17 at 16:16; Status DC Ondansetron HCl (Zofran) 4 mg 1X ONCE IV Last administered on 01/18/17 16:14 ; Start 01/18/17 at 16:15; Stop 01/18/17 at 16:16; Status DC Morphine Sulfate 5 mg 1X ONCE IV Last administered on 01/18/17 17:59; Start 01/18/17 at 18:15; Stop 01/18/17 at 18:16; Status DC Ondansetron HCl (Zofran) 4 mg PRN Q8HRS PRN IV NAUSEA/VOMITING; Start 01/18/17 at 21:15; Stop 01/19/17 at 21:14; Status DC Morphine Sulfate 4 mg PRN Q2HR PRN IV SEVERE PAIN Last administered on 04:13; Start 01/18/17 at 21:15; Stop 01/19/17 at 10:20; Status DC Acetaminophen (Tylenol) 650 mg PRN Q4HRS PRN PO FEVER Last administered on 01/18 22:13; Start 01/18/17 at 21:15; Stop 01/19/17 at 10:20; Status DC Sodium Chloride 1,000 ml @ 75 mls/hr [id number] IV Last administered on 09:57; Start 01/18/17 at 21:15 Metronidazole 100 ml @ 100 mls/hr Q8HRS IV Last administered on 01/19/17 06: 12; Start 01/18/17 at 22:00; Stop 01/19/17 at 10:00; Status DC Ciprofloxacin Lactate 200 ml @ 200 mls/hr Q12HR IV Last administered on 22:08; Start 01/18/17 at 22:00; Stop 01/19/17 at 10:00; Status DC Bupivacaine HCl/ Epinephrine Bitart (Sensorcain-Mpf Epi 0.5%-1:[id number]) 30 ml STK -MED ONCE .ROUTE Last administered on 01/19/17 08:28; Start 01/19/17 at 07:02 ; Stop 01/19/17 at 07:03; Status DC Dexamethasone Sodium Phosphate (Decadron) 20 mg STK-MED ONCE .ROUTE ; Start at 07:27; Stop 01/19/17 at 07:28; Status DC Ondansetron HCl (Zofran) 4 mg STK-MED ONCE .ROUTE ; Start 01/19/17 at 07:27; Stop 01/19/17 at 07:28; Status DC Propofol 20 ml @ As Directed STK-MED ONCE IV ; Start 01/19/17 at 07:27; Stop at 07:28; Status DC Lidocaine HCl (Lidocaine Pf 2% Vial) 5 ml STK-MED ONCE .ROUTE ; Start 01/19/17 at 07:27; Stop 01/19/17 at 07:28; Status DC Fentanyl Citrate (Fentanyl 2ml Vial) 100 mcg STK-MED ONCE .ROUTE ; Start at 07:32; Stop 01/19/17 at 07:33; Status DC Ondansetron HCl (Zofran) 4 mg PRN Q6HRS PRN IV NAUSEA/VOMITING; Start 01/19/17 at 08:15; Stop 01/19/17 at 18:00; Status DC Fentanyl Citrate (Fentanyl 2ml Vial) 25 mcg PRN Q5MIN PRN IV MILD PAIN; Start 01/19/17 at 08:15; Stop 01/19/17 at 10:41; Status DC Fentanyl Citrate (Fentanyl 2ml Vial) 50 mcg PRN Q5MIN PRN IV MODERATE PAIN; Start 01/19/17 at 08:15; Stop 01/19/17 at 10:41; Status DC Morphine Sulfate 1 mg PRN Q10MIN PRN IV SEVERE PAIN; Start 01/19/17 at 08:15; Stop 01/19/17 at 10:41; Status DC Ringer's Solution 1,000 ml @ 30 mls/hr Q24H IV ; Start 01/19/17 at 08:02; Stop 01/19/17 at 10:35; Status DC Lidocaine HCl 2 ml PRN 1X PRN ID PRIOR TO IV START; Start 01/19/17 at 08:15; Stop 01/19/17 at 18:00; Status DC Hydromorphone HCl (Dilaudid) 0.5 mg PRN Q10MIN PRN IV SEV PAIN, Second choice; Start 01/19/17 at 08:15; Stop 01/19/17 at 10:41; Status DC Prochlorperazine Edisylate (Compazine) 5 mg PACU PRN PRN IV NAUSEA, MRX1; Start 01/19/17 at 08:15; Stop 01/19/17 at 10:41; Status DC Fentanyl Citrate (Fentanyl 2ml Vial) 100 mcg STK-MED ONCE .ROUTE ; Start at 08:31; Stop 01/19/17 at 08:32; Status DC Oxycodone/ Acetaminophen (Percocet 5/325) 1 tab PRN Q4HRS PRN PO PAIN; Start at 08:45 Oxycodone/ Acetaminophen (Percocet 5/325) 2 tab PRN Q4HRS PRN PO PAIN; Start at 08:45 Vancomycin HCl 2 gm/Sodium Chloride 500 ml @ 250 mls/hr 1X ONCE IV Last administered on 01/19/17 12:30; Start 01/19/17 at 11:00; Stop 01/19/17 at 12:59 ; Status DC Vancomycin HCl (Vanco Per Pharmacy) 1 each PRN DAILY PRN MC SEE COMMENTS Last administered on 01/21/17 00:24; Start 01/19/17 at 10:00; Stop 01/21/17 at 09:42 ; Status DC Piperacillin Sod/ Tazobactam Sod (Zosyn Per Pharmacy) 1 each PRN DAILY PRN MC SEE COMMENTS; Start 01/19/17 at 10:00 Piperacillin Sod/ Tazobactam Sod 3.375 gm/Sodium Chloride 100 ml @ 200 mls/hr Q6HRS IV Last administered on 01/20/17 16:58; Start 01/19/17 at 11:00; Stop at 23:31; Status DC Acetaminophen (Tylenol) 650 mg PRN Q6HRS PRN PO FEVER; Start 01/19/17 at 10:00 Ondansetron HCl (Zofran) 4 mg PRN Q6HRS PRN IV NAUSEA/VOMITING; Start 01/19/17 at 10:00 Morphine Sulfate 2 mg PRN Q2HR PRN IV PAIN; Start 01/19/17 at 10:00 Tramadol HCl (Ultram) 50 mg PRN Q6HRS PRN PO PAIN; Start 01/19/17 at 10:00 Hydralazine HCl (Apresoline) 10 mg PRN Q4HRS PRN IVP ELEVATED BP, SEE COMMENTS ; Start 01/19/17 at 10:00 Docusate Sodium (Colace) 100 mg PRN DAILY PRN PO CONSTIPATION Last administered on 01/19/17 16:12; Start 01/19/17 at 10:00 Cyclobenzaprine HCl (Flexeril) 10 mg DAILY PO Last administered on 01/21/17 09 :12; Start 01/19/17 at 10:00 Gabapentin (Neurontin) 300 mg TID PO Last administered on 01/21/17 09:11; Start 01/19/17 at 10:00 Lisinopril (Prinivil) 20 mg DAILY PO Last administered on 01/19/17 11:21; Start 01/19/17 at 10:00; Stop 01/20/17 at 10:04; Status DC Meloxicam (Mobic) 15 mg DAILY PO Last administered on 01/21/17 09:11; Start at 10:00 Hydrochlorothiazide (Microzide) 12.5 mg DAILY PO Last administered on 11:21; Start 01/19/17 at 10:00; Stop 01/20/17 at 10:04; Status DC Enoxaparin Sodium (Lovenox 40mg Syringe) 40 mg Q24H SQ Last administered on 10:03; Start 01/20/17 at 10:00 Vancomycin HCl 1.5 gm/Sodium Chloride 500 ml @ 250 mls/hr Q12H IV Last administered on 01/21/17 00:12; Start 01/20/17 at 00:00; Stop 01/21/17 at 09:42 ; Status DC Vancomycin HCl 1 each 1X ONCE MC Last administered on 01/20/17 23:27; Start 01/20/17 at 23:30; Stop 01/20/17 at 23:31; Status DC Sodium Chloride 500 ml @ 500 mls/hr PRN Q3HRS PRN IV BP at 90 or below, max 2 doses Last administered on 01/20/17 00:50; Start 01/19/17 at 20:15; Stop at 00:50; Status DC Iron Sucrose 200 mg/Sodium Chloride 110 ml @ 55 mls/hr DAILY IV Last administered on 01/21/17 09:57; Start 01/20/17 at 14:00; Stop 01/25/17 at 15:00 Piperacillin Sod/ Tazobactam Sod 3.375 gm/Sodium Chloride 50 ml @ 100 mls/hr Q6HRS IV ; Start 01/20/17 at 23:31; Status Cancel Piperacillin Sod/ Tazobactam Sod 3.375 gm/Sodium Chloride 50 ml @ 100 mls/hr Q6HRS IV Last administered on 01/21/17 12:03; Start 01/21/17 at 00:00 Lactobacillus Acidophilus (Bacid, Debra-Bid) 1 tab TIDWMEALS PO Last administered on 01/21/17 12:00; Start 01/21/17 at 12:00 Active Scripts Active Reported Lisinopril-Hctz 20-12.5 Mg Tab (Lisinopril/Hydrochlorothiazide) 1 Each Tablet 1 Tab PO DAILY Cyclobenzaprine Hcl 10 Mg Tablet 10 Mg PO DAILY Gabapentin 300 Mg Capsule 300 Mg PO TID Meloxicam 15 Mg Tablet 15 Mg PO DAILY Vitals/I & O Vital Sign - Last 24 Hours 01/20/17 01/20/17 01/20/17 01/20/17 15:00 19:00 20:32 22:58 Temp 97.7 97.7 96.3 97.7 97.7 96.3 Pulse 60 64 61 Resp 18 18 18 B/P (MAP) 108/65 (79) 121/76 (91) 128/83 (98) Pulse Ox 97 97 91 O2 Delivery Room Air Room Air Room Air Room Air 01/21/17 01/21/17 01/21/17 01/21/17 03:00 07:00 08:00 11:57 Temp 97.9 97.7 97.5 97.9 97.7 97.5 Pulse 69 69 70 Resp 18 20 18 B/P (MAP) 140/77 (98) 155/73 (100) 160/91 (114) Pulse Ox 92 91 93 O2 Delivery Room Air Room Air Room Air Room Air Intake and Output 01/20/17 01/20/17 01/21/17 15:00 23:00 07:00 Intake Total 500 ml 1850 ml 1166 ml Output Total 900 ml 600 ml Balance 500 ml 950 ml 566 ml CORRY WASHINGTON MD January 21, 2017 12:19
[2017-01-21] MEDS ORDERED: ZOLPIDEM 5 MG TABLET. PO PRN (12:30)
[2017-01-21 15:00] VITALS: BP 166/99
[2017-01-21 19:00] VITALS: BP 156/91
[2017-01-21] MEDS: oxyCODONE/APAP 5/325 1 TAB TABLET PO PRN (22:37)
[2017-01-21 23:00] VITALS: BP 167/91
[2017-01-22] VITALS (12 sets, daily range): BP systolic 147–179; BP diastolic 79–99
[2017-01-22] MEDS: oxyCODONE/APAP 5/325 1 TAB TABLET PO PRN ×3 (02:29→13:47)
[2017-01-22] MEDS: IV NORMAL SALINE 1000ML BAG 1,000 ML IV SCH (05:15)
[2017-01-22] MEDS: PIPERACILLIN/TAZOBACTAM 3.375 GM in IV NORMAL SALINE 50ML 50 ML IV SCH ×4 (06:07→13:36)
--- NOTE | 2017-01-22 08:18 | PDOC ---
Provider Note Provider Note IR Note: Ant is tentatively on schedule for CT guided liver bx today. NPO. Coags ordered. JADIEL SALAZAR MD January 22, 2017 08:18
[2017-01-22 08:46] LABS: INR 1.1 (0.8-1.1); PROTHROMBIN TIME PATIENT 13.4 SEC (11.7-14.0)
--- NOTE | 2017-01-22 08:46 | PDOC ---
MAURISIO VÁSQUEZ SQUILGEER 01/22/17 8:46am: SURGICAL PROGRESS NOTE Subjective tolerating diet packing falls out when up to br pain improved Vital Signs Vital Signs Date Time Temp Pulse Resp B/P (MAP) Pulse Ox O2 Delivery O2 Flow Rate FiO2 01/22/17 07:18 18 94 Room Air 8.0 01/22/17 07:00 97.2 60 160/95 (116) 97.2 I&O Intake and Output 01/22/17 06:59 Intake Total 3663 ml Output Total 2875 ml Balance 788 ml Intake Oral 1712 ml IV Total 926 ml Other 1025 ml Output Urine Total 2875 ml # Bowel Movements 2 General: Alert, Oriented X3, Cooperative, No acute distress Skin: Other (wound clean, packing out ) Labs Laboratory Tests Test 01/20/17 23:30 01/21/17 04:20 Vancomycin Level Trough 14.2 mcg/mL (10.0-20.0) Vancomycin Last Dose Date 01/20/17 Vancomycin Last Dose Time 1200 White Blood Count 14.6 x10^3/uL (4.0-11.0) Red Blood Count 3.28 x10^6/uL (4.30-5.70) Hemoglobin 10.8 g/dL (13.0-17.5) Hematocrit 32.1 % (39.0-53.0) Mean Corpuscular Volume 98 fL (79-100) Mean Corpuscular Hemoglobin 33 pg (25-35) Mean Corpuscular Hemoglobin Concent 34 g/dL (31-37) Red Cell Distribution Width 13.2 % (11.5-14.5) Platelet Count 588 x10^3/uL (140-400) Neutrophils (%) (Auto) 68 % (31-73) Lymphocytes (%) (Auto) 21 % (24-48) Monocytes (%) (Auto) 8 % (0-9) Eosinophils (%) (Auto) 2 % (0-3) Basophils (%) (Auto) 0 % (0-3) Neutrophils # (Auto) 10.0 x10^3uL (1.8-7.7) Lymphocytes # (Auto) 3.1 x10^3/uL (1.0-4.8) Monocytes # (Auto) 1.2 x10^3/uL (0.0-1.1) Eosinophils # (Auto) 0.3 x10^3/uL (0.0-0.7) Basophils # (Auto) 0.1 x10^3/uL (0.0-0.2) Sodium Level 144 mmol/L (136-145) Potassium Level 3.7 mmol/L (3.5-5.1) Chloride Level 109 mmol/L (98-107) Carbon Dioxide Level 26 mmol/L (21-32) Anion Gap 9 (6-14) Blood Urea Nitrogen 16 mg/dL (8-26) Creatinine 1.1 mg/dL (0.7-1.3) Estimated GFR (Cockcroft-Gault) 70.3 Glucose Level 101 mg/dL (70-99) Calcium Level 8.3 mg/dL (8.5-10.1) Problem List Problems Medical Problems: (1) Liver metastases Status: Acute (2) Pancreatic cancer Status: Acute (3) Rectal abscess Status: Acute Assessment/Plan s/p I&D continue abx, wound care, abnormal CT--work up in progress Problems: NICCI ESTRADA MD 01/22/17 1:11pm: SURGICAL PROGRESS NOTE Assessment/Plan Will have wound clinic see patient for further wound care options. Agree with Clifton's assessment and plan. Problems: MAURISIO VÁSQUEZ APRN January 22, 2017 8:46 am NICCI ESTRADA MD January 22, 2017 1:11 pm
[2017-01-22] MEDS ORDERED: IRON POLYSACCHARIDE COMPLEX 150 MG CAPSULE PO SCH (09:00)
[2017-01-22] MEDS: CYCLOBENZAPRINE 10 MG TABLET. PO SCH (09:00)
[2017-01-22] MEDS ORDERED: LIDOCAINE 1% / SOD BICARB 8.4% 20 ML VIAL. IJ ONE ×2 (09:06→09:30)
[2017-01-22] MEDS ORDERED: fentaNYL PF VIAL 100 MCG/2 ML VIAL ONE (09:09)
[2017-01-22] MEDS ORDERED: MIDAZOLAM HCL/PF 2 MG/2 ML VIAL. ONE (09:09)
--- NOTE | 2017-01-22 09:15 | PDOC ---
MODERATE SEDATION ASSESSMENT RISKS/ALTERNATIVES Risks/Alternatives Risks and alternatives of this type of sedation and procedure discussed with: RISK/ALTERNATIVES: Patient H & P ON CHART H & P H & P on chart and reviewed for co-morbid conditions and appropriate labs. H&P ON CHART: Yes STATUS PREG STATUS ASSESSED: N/A MEDS/ALLERGIES REVIEWED Meds/Allergies Reviewed Medications and Allergies including time and route of recently administered narcotics and sedatives. MEDS/ALLERGIES REVIEWED: Yes ASA RATING ASA RATING: II AIRWAY ASSESSMENT Airway Assessment Airway patency, oral function limitations, presence of caps, crowns, dentures, partials, and ability to extend neck assessed. AIRWAY ASSESSMENT: Yes MALLAMPATI SCORE MALLAMPATI SCORE: II PRE-SEDATION ASSESSMENT PRE-SEDATION ASSESSMENT: Yes JADIEL SALAZAR MD January 22, 2017 09:15
[2017-01-22] MEDS ORDERED: fentaNYL PF VIAL 100 MCG/2 ML VIAL IV ONE (09:30)
[2017-01-22] MEDS ORDERED: MIDAZOLAM HCL/PF 2 MG/2 ML VIAL. IV ONE (09:30)
[2017-01-22] MEDS ORDERED: OXYC1TAB7 PO (09:49)
[2017-01-22] MEDS ORDERED: AMOX1TAB61 PO (09:49)
--- NOTE | 2017-01-22 09:54 | PDOC ---
Exam Pharmacy Scheduler Pharmacy Scheduler Christina Pre-Procedure Diagnosis Pre-Procedure Diagnosis 51 YO male with darci-rectal abscess, with small low density focus within uncinate of pancreas, and with multiple small low density liver lesions---Met disease (? pancreatic primary) vs abscesses. Post-Procedure Diagnosis Post-Procedure Diagnosis Solid tumor, not abscess. Met disease of ? primary, possibly pancreas. Procedure Performed Procedure Performed CT guided bx rt lobe liver lesion. Type of Anesthesia Type of Anesthesia Local + Mod sedation Estimated Blood Loss EBL: Trace Specimens Specimans 3 18G core bx----to path in formalin Condition of Patient Condition of Patient Stable. No apparent complication. No post bx bleeding. Disposition Disposition From IR/CT return to [facility]. F/u with [facility]. Full report to follow. JADIEL SALAZAR MD January 22, 2017 09:54
[2017-01-22] MEDS: ENOXAPARIN 40 MG/0.4 ML SYRINGE. SQ SCH (10:00)
--- NOTE | 2017-01-22 10:27 | PDOC ---
Infectious Disease Note Subjective Subjective Comfortable, denies pain Starting to having some loose stools but ok. Only 3 Appetite good Mother present, no concerns voiced at this time. ROS ROS GEN: Denies fevers, chills, sweats HEENT: Denies blurred vision, sore throat CV: Denies chest pain RESP: Denies shortness of air, cough GI: Denies n/v/d NEURO: Denies confusion, dizziness MSK: Denies weakness, joint pain/swelling Vital Sign Vital Signs Vital Signs Date Time Temp Pulse Resp B/P (MAP) Pulse Ox O2 Delivery O2 Flow Rate FiO2 01/22/17 10:18 97.5 62 18 179/99 (125) 94 Room Air 97.5 01/22/17 07:18 8.0 Physical Exam PHYSICAL EXAM GENERAL: NAD, Alert HEENT: PERRL, OC/OP- clear NECK: Supple, no JVD, no LN LUNGS: Clear HEART: S1S2, no gallop, no murmur ABD: Soft, NT, no organomegaly, no rebound. Biopsy site clean EXT: No edema, no cyanosis HEALTH CARE ASSISTANT: Alert, oriented x 3, no focal neurologic deficit SKIN: No rash. Post op wound is very clean IV: ok Labs Lab Laboratory Tests Test 01/22/17 08:25 Prothrombin Time 13.4 SEC (11.7-14.0) Prothromb Time International Ratio 1.1 (0.8-1.1) Objective Assessment Cheryl-rectal abscess, s/p I and D, 01/19. Intra-op GS no organisms. Strep anginosis Fever better Leukocytosis- mild increase ? concentration Pancreatic mass with possible liver mets -s/p biopsy this am doing well Urinary retention requiring indwelling [place] Plan Plan of Care Hilary lima to go home on Augmentin D/w mother and ZULY Mukherjee MD January 22, 2017 10:26
[2017-01-22] MEDS: LACTOBACILLUS ACIDOPH & BULGAR 1 TABLET. PO SCH ×2 (10:37→13:37)
[2017-01-22] MEDS: GABAPENTIN 300 MG CAPSULE. PO SCH ×2 (10:38→13:37)
[2017-01-22] MEDS: MELOXICAM 7.5 MG TABLET PO SCH ×2 (10:38→11:38)
--- NOTE | 2017-01-22 13:01 | PDOC ---
Subjective: Subjective: Doing well. Objective: Vital Signs: Vital Signs Date Time Temp Pulse Resp B/P (MAP) Pulse Ox O2 Delivery O2 Flow Rate FiO2 01/22/17 12:07 97.5 65 18 147/90 (109) 95 Room Air 97.5 01/22/17 07:18 8.0 Labs: Laboratory Tests Test 01/22/17 08:25 Prothrombin Time 13.4 SEC Prothromb Time International Ratio 1.1 PE: GEN: NAD, laying on side, wound care present ABD: S/ND/NT NEURO/PSYCH: A & O 3 A/P: Recurrent perirectal abscess s/p I&D -no h/o IBD, no previous 'scopes OBDULIA Pancreatic/hepatic lesions s/p liver biopsy -reviewed Dr. Vasquez's note: solid tumor, not abscess, met disease of ? primary , possibly pancreas -Hep panel, [id number] pending -- Note discharge plans. Follow-up w/ Dr. Flores as outpt. BAILEY CHILDRESS January 22, 2017 13:01
--- NOTE | 2017-01-22 13:51 | PDOC ---
PROGRESS NOTES Subjective Subjective c/c - f/u of Pancreatic mass with liver mets Objective Objective Vital Signs Date Time Temp Pulse Resp B/P (MAP) Pulse Ox O2 Delivery O2 Flow Rate FiO2 01/22/17 12:07 97.5 65 18 147/90 (109) 95 Room Air 97.5 01/22/17 07:18 8.0 Intake and Output 01/22/17 07:00 Intake Total 3663 ml Output Total 2875 ml Balance 788 ml Intake Oral 1712 ml IV Total 926 ml Other 1025 ml Output Urine Total 2875 ml # Bowel Movements 2 Physical Exam Abdomen: No tenderness Heart: Normal S1, Normal S2 General: Alert, Oriented X3 Neuro: Normal speech Psych/Mental Status: Mental status NL Assessment Assessment Problems Medical Problems: (1) Liver metastases Status: Acute (2) Pancreatic cancer Status: Acute (3) Rectal abscess Status: Acute Assessment/Plan 1. Pancreatic mass with liver mets - 51 yo M c recurrent perirectal abscess s/p I &D 01/19, incidentally found to have multiple liver lesions and an pancreatic uncinate process lesion as well, NOS. He has never had EGD or c-scope. CA 19-9 has been ordered S/p liver bx by IR 01/22/17 f/u with me next week for results and to discuss further management. 2. 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 Comment Review of Relevant I have reviewed the following items shante (where applicable) has been applied. Labs Laboratory Tests Test 01/20/17 23:30 01/21/17 04:20 01/22/17 08:25 Vancomycin Level Trough 14.2 mcg/mL (10.0-20.0) Vancomycin Last Dose Date 01/20/17 Vancomycin Last Dose Time 1200 White Blood Count 14.6 x10^3/uL (4.0-11.0) Red Blood Count 3.28 x10^6/uL (4.30-5.70) Hemoglobin 10.8 g/dL (13.0-17.5) Hematocrit 32.1 % (39.0-53.0) Mean Corpuscular Volume 98 fL (79-100) Mean Corpuscular Hemoglobin 33 pg (25-35) Mean Corpuscular Hemoglobin Concent 34 g/dL (31-37) Red Cell Distribution Width 13.2 % (11.5-14.5) Platelet Count 588 x10^3/uL (140-400) Neutrophils (%) (Auto) 68 % (31-73) Lymphocytes (%) (Auto) 21 % (24-48) Monocytes (%) (Auto) 8 % (0-9) Eosinophils (%) (Auto) 2 % (0-3) Basophils (%) (Auto) 0 % (0-3) Neutrophils # (Auto) 10.0 x10^3uL (1.8-7.7) Lymphocytes # (Auto) 3.1 x10^3/uL (1.0-4.8) Monocytes # (Auto) 1.2 x10^3/uL (0.0-1.1) Eosinophils # (Auto) 0.3 x10^3/uL (0.0-0.7) Basophils # (Auto) 0.1 x10^3/uL (0.0-0.2) Sodium Level 144 mmol/L (136-145) Potassium Level 3.7 mmol/L (3.5-5.1) Chloride Level 109 mmol/L (98-107) Carbon Dioxide Level 26 mmol/L (21-32) Anion Gap 9 (6-14) Blood Urea Nitrogen 16 mg/dL (8-26) Creatinine 1.1 mg/dL (0.7-1.3) Estimated GFR (Cockcroft-Gault) 70.3 Glucose Level 101 mg/dL (70-99) Calcium Level 8.3 mg/dL (8.5-10.1) Prothrombin Time 13.4 SEC (11.7-14.0) Prothromb Time International Ratio 1.1 (0.8-1.1) Laboratory Tests Test 01/22/17 08:25 Prothrombin Time 13.4 SEC (11.7-14.0) Prothromb Time International Ratio 1.1 (0.8-1.1) Microbiology 01/19/17 Gram Stain - Final, Complete Medications Current Medications Iohexol (Omnipaque 300 Mg/ml) 75 ml 1X ONCE IV Last administered on 01/18/17t 17:28; Start 01/18/17 at 15:45; Stop 01/18/17 at 15:46; Status DC Iohexol (Omnipaque 240 Mg/ml) 30 ml 1X ONCE PO Last administered on 01/18/17 15:45; Start 01/18/17 at 15:45; Stop 01/18/17 at 15:46; Status DC Info (Do NOT chart on this entry -- for MONITORING) 1 each PRN DAILY PRN MC SEE COMMENTS; Start 01/18/17 at 16:00; Stop 01/20/17 at 15:59; Status DC Fentanyl Citrate (Fentanyl 2ml Vial) 50 mcg 1X ONCE IV Last administered on 16:15; Start 01/18/17 at 16:15; Stop 01/18/17 at 16:16; Status DC Ondansetron HCl (Zofran) 4 mg 1X ONCE IV Last administered on 01/18/17 16:14 ; Start 01/18/17 at 16:15; Stop 01/18/17 at 16:16; Status DC Morphine Sulfate 5 mg 1X ONCE IV Last administered on 01/18/17 17:59; Start 01/18/17 at 18:15; Stop 01/18/17 at 18:16; Status DC Ondansetron HCl (Zofran) 4 mg PRN Q8HRS PRN IV NAUSEA/VOMITING; Start 01/18/17 at 21:15; Stop 01/19/17 at 21:14; Status DC Morphine Sulfate 4 mg PRN Q2HR PRN IV SEVERE PAIN Last administered on 04:13; Start 01/18/17 at 21:15; Stop 01/19/17 at 10:20; Status DC Acetaminophen (Tylenol) 650 mg PRN Q4HRS PRN PO FEVER Last administered on 01/18 22:13; Start 01/18/17 at 21:15; Stop 01/19/17 at 10:20; Status DC Sodium Chloride 1,000 ml @ 75 mls/hr [id number] IV Last administered on 05:15; Start 01/18/17 at 21:15 Metronidazole 100 ml @ 100 mls/hr Q8HRS IV Last administered on 01/19/17 06: 12; Start 01/18/17 at 22:00; Stop 01/19/17 at 10:00; Status DC Ciprofloxacin Lactate 200 ml @ 200 mls/hr Q12HR IV Last administered on 5/26/ 17at 22:08; Start 01/18/17 at 22:00; Stop 01/19/17 at 10:00; Status DC Bupivacaine HCl/ Epinephrine Bitart (Sensorcain-Mpf Epi 0.5%-[id number]) 30 ml STK -MED ONCE .ROUTE Last administered on 01/19/17t 08:28; Start 01/19/17 at 07:02 ; Stop 01/19/17 at 07:03; Status DC Dexamethasone Sodium Phosphate (Decadron) 20 mg STK-MED ONCE .ROUTE ; Start at 07:27; Stop 01/19/17 at 07:28; Status DC Ondansetron HCl (Zofran) 4 mg STK-MED ONCE .ROUTE ; Start 01/19/17 at 07:27; Stop 01/19/17 at 07:28; Status DC Propofol 20 ml @ As Directed STK-MED ONCE IV ; Start 01/19/17 at 07:27; Stop at 07:28; Status DC Lidocaine HCl (Lidocaine Pf 2% Vial) 5 ml STK-MED ONCE .ROUTE ; Start 01/19/17 at 07:27; Stop 01/19/17 at 07:28; Status DC Fentanyl Citrate (Fentanyl 2ml Vial) 100 mcg STK-MED ONCE .ROUTE ; Start at 07:32; Stop 01/19/17 at 07:33; Status DC Ondansetron HCl (Zofran) 4 mg PRN Q6HRS PRN IV NAUSEA/VOMITING; Start 01/19/17 at 08:15; Stop 01/19/17 at 18:00; Status DC Fentanyl Citrate (Fentanyl 2ml Vial) 25 mcg PRN Q5MIN PRN IV MILD PAIN; Start 01/19/17 at 08:15; Stop 01/19/17 at 10:41; Status DC Fentanyl Citrate (Fentanyl 2ml Vial) 50 mcg PRN Q5MIN PRN IV MODERATE PAIN; Start 01/19/17 at 08:15; Stop 01/19/17 at 10:41; Status DC Morphine Sulfate 1 mg PRN Q10MIN PRN IV SEVERE PAIN; Start 01/19/17 at 08:15; Stop 01/19/17 at 10:41; Status DC Ringer's Solution 1,000 ml @ 30 mls/hr Q24H IV ; Start 01/19/17 at 08:02; Stop 01/19/17 at 10:35; Status DC Lidocaine HCl 2 ml PRN 1X PRN ID PRIOR TO IV START; Start 01/19/17 at 08:15; Stop 01/19/17 at 18:00; Status DC Hydromorphone HCl (Dilaudid) 0.5 mg PRN Q10MIN PRN IV SEV PAIN, Second choice; Start 01/19/17 at 08:15; Stop 01/19/17 at 10:41; Status DC Prochlorperazine Edisylate (Compazine) 5 mg PACU PRN PRN IV NAUSEA, MRX1; Start 01/19/17 at 08:15; Stop 01/19/17 at 10:41; Status DC Fentanyl Citrate (Fentanyl 2ml Vial) 100 mcg STK-MED ONCE .ROUTE ; Start at 08:31; Stop 01/19/17 at 08:32; Status DC Oxycodone/ Acetaminophen (Percocet 5/325) 1 tab PRN Q4HRS PRN PO MILD PAIN; Start 01/19/17 at 08:45 Oxycodone/ Acetaminophen (Percocet 5/325) 2 tab PRN Q4HRS PRN PO MOD, SEVERE PAIN Last administered on 01/22/17 06:08; Start 01/19/17 at 08:45 Vancomycin HCl 2 gm/Sodium Chloride 500 ml @ 250 mls/hr 1X ONCE IV Last administered on 01/19/17 12:30; Start 01/19/17 at 11:00; Stop 01/19/17 at 12:59 ; Status DC Vancomycin HCl (Vanco Per Pharmacy) 1 each PRN DAILY PRN MC SEE COMMENTS Last administered on 01/21/17 00:24; Start 01/19/17 at 10:00; Stop 01/21/17 at 09:42 ; Status DC Piperacillin Sod/ Tazobactam Sod (Zosyn Per Pharmacy) 1 each PRN DAILY PRN MC SEE COMMENTS; Start 01/19/17 at 10:00; Stop 01/22/17 at 12:55; Status DC Piperacillin Sod/ Tazobactam Sod 3.375 gm/Sodium Chloride 100 ml @ 200 mls/hr Q6HRS IV Last administered on 01/20/17 16:58; Start 01/19/17 at 11:00; Stop at 23:31; Status DC Acetaminophen (Tylenol) 650 mg PRN Q6HRS PRN PO FEVER; Start 01/19/17 at 10:00 Ondansetron HCl (Zofran) 4 mg PRN Q6HRS PRN IV NAUSEA/VOMITING; Start 01/19/17 at 10:00 Morphine Sulfate 2 mg PRN Q2HR PRN IV PAIN Last administered on 01/21/17 21:56 ; Start 01/19/17 at 10:00 Tramadol HCl (Ultram) 50 mg PRN Q6HRS PRN PO PAIN; Start 01/19/17 at 10:00 Hydralazine HCl (Apresoline) 10 mg PRN Q4HRS PRN IVP ELEVATED BP, SEE COMMENTS ; Start 01/19/17 at 10:00 Docusate Sodium (Colace) 100 mg PRN DAILY PRN PO CONSTIPATION Last administered on 01/19/17 16:12; Start 01/19/17 at 10:00 Cyclobenzaprine HCl (Flexeril) 10 mg DAILY PO Last administered on 01/22/17 09 :00; Start 01/19/17 at 10:00 Gabapentin (Neurontin) 300 mg TID PO Last administered on 01/22/17 13:37; Start 01/19/17 at 10:00 Lisinopril (Prinivil) 20 mg DAILY PO Last administered on 01/19/17 11:21; Start 01/19/17 at 10:00; Stop 01/20/17 at 10:04; Status DC Meloxicam (Mobic) 15 mg DAILY PO Last administered on 01/22/17 11:38; Start at 10:00 Hydrochlorothiazide (Microzide) 12.5 mg DAILY PO Last administered on 11:21; Start 01/19/17 at 10:00; Stop 01/20/17 at 10:04; Status DC Enoxaparin Sodium (Lovenox 40mg Syringe) 40 mg Q24H SQ Last administered on 10:03; Start 01/20/17 at 10:00 Vancomycin HCl 1.5 gm/Sodium Chloride 500 ml @ 250 mls/hr Q12H IV Last administered on 01/21/17 00:12; Start 01/20/17 at 00:00; Stop 01/21/17 at 09:42 ; Status DC Vancomycin HCl 1 each 1X ONCE MC Last administered on 01/20/17 23:27; Start 01/20/17 at 23:30; Stop 01/20/17 at 23:31; Status DC Sodium Chloride 500 ml @ 500 mls/hr PRN Q3HRS PRN IV BP at 90 or below, max 2 doses Last administered on 01/20/17 00:50; Start 01/19/17 at 20:15; Stop at 00:50; Status DC Iron Sucrose 200 mg/Sodium Chloride 110 ml @ 55 mls/hr DAILY IV Last administered on 01/21/17 09:57; Start 01/20/17 at 14:00; Stop 01/21/17 at 12:20 ; Status DC Piperacillin Sod/ Tazobactam Sod 3.375 gm/Sodium Chloride 50 ml @ 100 mls/hr Q6HRS IV ; Start 01/20/17 at 23:31; Status Cancel Piperacillin Sod/ Tazobactam Sod 3.375 gm/Sodium Chloride 50 ml @ 100 mls/hr Q6HRS IV Last administered on 01/22/17 13:36; Start 01/21/17 at 00:00 Lactobacillus Acidophilus (Bacid, Debra-Bid) 1 tab TIDWMEALS PO Last administered on 01/22/17 13:37; Start 01/21/17 at 12:00 Zolpidem Tartrate (Ambien) 5 mg PRN QHS PRN PO INSOMNIA, MAY REPEAT IN 1HR; Start 01/21/17 at 12:30 Polysaccharide Iron Complex (Niferex 150) 150 mg DAILY PO Last administered on 01/22/17 10:38; Start 01/22/17 at 09:00 Lidocaine/Sodium Bicarbonate (Buffered Lidocaine 1%) 20 ml STK-MED ONCE IJ ; Start 01/22/17 at 09:06; Stop 01/22/17 at 09:07; Status DC Fentanyl Citrate (Fentanyl 2ml Vial) 100 mcg STK-MED ONCE .ROUTE ; Start at 09:09; Stop 01/22/17 at 09:10; Status DC Midazolam HCl (Versed) 2 mg STK-MED ONCE .ROUTE ; Start 01/22/17 at 09:09; Stop 01/22/17 at 09:10; Status DC Lidocaine/Sodium Bicarbonate (Buffered Lidocaine 1%) 20 ml 1X ONCE IJ Last administered on 01/22/17 09:41; Start 01/22/17 at 09:30; Stop 01/22/17 at 09:31 ; Status DC Midazolam HCl (Versed) 2 mg 1X ONCE IV Last administered on 01/22/17 09:42; Start 01/22/17 at 09:30; Stop 01/22/17 at 09:31; Status DC Fentanyl Citrate (Fentanyl 2ml Vial) 100 mcg 1X ONCE IV Last administered on 09:41; Start 01/22/17 at 09:30; Stop 01/22/17 at 09:31; Status DC Active Scripts Active Oxycodone-Acetaminophen 5-325 (Oxycodone Hcl/Acetaminophen) 1 Each Tablet 1 Tab PO PRN Q4HRS PRN Reported Lisinopril-Hctz 20-12.5 Mg Tab (Lisinopril/Hydrochlorothiazide) 1 Each Tablet 1 Tab PO DAILY Cyclobenzaprine Hcl 10 Mg Tablet 10 Mg PO DAILY Gabapentin 300 Mg Capsule 300 Mg PO TID Meloxicam 15 Mg Tablet 15 Mg PO DAILY Vitals/I & O Vital Sign - Last 24 Hours 01/21/17 01/21/17 01/21/17 01/21/17 15:00 19:00 20:00 21:56 Temp 97.5 97.9 97.5 97.9 Pulse 65 65 Resp 20 20 18 B/P (MAP) 166/99 (121) 156/91 (112) Pulse Ox 92 97 97 O2 Delivery Room Air Room Air Room Air Room Air O2 Flow Rate 8.0 01/21/17 01/21/17 01/21/17 01/22/17 22:34 22:37 23:00 02:29 Temp 97.9 97.9 Pulse 66 Resp 18 18 20 18 B/P (MAP) 167/91 (116) Pulse Ox 97 97 98 98 O2 Delivery Room Air Room Air Room Air Room Air O2 Flow Rate 8.0 8.0 8.0 01/22/17 01/22/17 01/22/17 01/22/17 03:00 06:08 07:00 07:18 Temp 98.1 97.2 98.1 97.2 Pulse 63 60 Resp 20 18 18 18 B/P (MAP) 162/92 (115) 160/95 (116) Pulse Ox 94 94 94 94 O2 Delivery Room Air Room Air Room Air Room Air O2 Flow Rate 8.0 8.0 01/22/17 01/22/17 01/22/17 01/22/17 08:00 09:20 09:25 09:30 Pulse 66 61 61 Resp 22 21 21 Pulse Ox 93 95 95 O2 Delivery Room Air Room Air Nasal Cannula Nasal Cannula 01/22/17 01/22/17 01/22/17 01/22/17 09:35 09:41 09:58 10:18 Temp 97.9 97.5 97.9 97.5 Pulse 56 64 62 Resp 24 18 18 B/P (MAP) 179/97 (124) 179/99 (125) Pulse Ox 98 94 96 94 O2 Delivery Nasal Cannula Room Air Room Air Room Air 01/22/17 01/22/17 01/22/17 01/22/17 10:33 10:51 11:30 12:07 Temp 96.4 98.5 97.7 97.5 96.4 98.5 97.7 97.5 Pulse 62 122 63 65 Resp 18 18 B/P (MAP) 176/98 (124) 169/99 (122) 148/79 (102) 147/90 (109) Pulse Ox 94 95 95 O2 Delivery Room Air Room Air Room Air Room Air Intake and Output 01/21/17 01/21/17 01/22/17 15:00 23:00 07:00 Intake Total 1222 ml 516 ml 1925 ml Output Total 1375 ml 1500 ml Balance 1222 ml -859 ml 425 ml HARRISON ELLIS MD January 22, 2017 13:51
[2017-01-22 14:21] LABS: HEP A IGM ABDY Negative (Negative)
--- NOTE | 2017-01-22 14:35 | PDOC2 ---
CONSULT Date of Consult Date of Consult DATE: 01/22/17 TIME: 14:24 Reason for Consult Reason for Consult: Right buttock wound Referring Physician Referring Physician: Dr. Carmichael Identification/Chief Complaint Chief Complaint Recent incision and drainage of right buttock perirectal abscess with resultant deep wound Source Source: Chart review, Patient History of Present Illness Reason for Visit: This is a 51-year-old gentleman who was recently admitted to the hospital for perirectal abscess. He underwent incision and drainage. Cultures have demonstrated strip anginosis. Coincidental finding on CT scan of pancreatic mass with possible liver metastasis. This has also undergone needle biopsy. Follow-up for the patient's wound care and decision regarding negative pressure wound therapy have been requested. I am examining the patient at the bedside. He is afebrile and appropriate and oriented. He is seen with his mother at the bedside. He gives history of prior surgical intervention for but abscess which required a fistulectomy. Past Medical History Cardiovascular: HTN Musculoskeletal: Osteoarthritis, Other (cervical fracture) ENT: Other (periodontal disease) Past Surgical History Past Surgical History: Appendectomy, Cholecystectomy, Other (fistulectomy/ drainage or perirectal abcess/ORIF cervical fracture) Family History Family History: Diabetes, Hypertension, Stroke Social History 1 pack per day ALCOHOL: heavy (3-4 times per week, >10 beers per sitting) Drugs: None Lives: with Family Current Problem List Problem List Problems Medical Problems: (1) Liver metastases Status: Acute (2) Pancreatic cancer Status: Acute (3) Rectal abscess Status: Acute Current Medications Current Medications Current Medications Iohexol (Omnipaque 300 Mg/ml) 75 ml 1X ONCE IV Last administered on 01/18/17 17:28; Start 01/18/17 at 15:45; Stop 01/18/17 at 15:46; Status DC Iohexol (Omnipaque 240 Mg/ml) 30 ml 1X ONCE PO Last administered on 01/18/17 15:45; Start 01/18/17 at 15:45; Stop 01/18/17 at 15:46; Status DC Info (Do NOT chart on this entry -- for MONITORING) 1 each PRN DAILY PRN MC SEE COMMENTS; Start 01/18/17 at 16:00; Stop 01/20/17 at 15:59; Status DC Fentanyl Citrate (Fentanyl 2ml Vial) 50 mcg 1X ONCE IV Last administered on 16:15; Start 01/18/17 at 16:15; Stop 01/18/17 at 16:16; Status DC Ondansetron HCl (Zofran) 4 mg 1X ONCE IV Last administered on 01/18/17 16:14 ; Start 01/18/17 at 16:15; Stop 01/18/17 at 16:16; Status DC Morphine Sulfate 5 mg 1X ONCE IV Last administered on 01/18/17 17:59; Start 01/18/17 at 18:15; Stop 01/18/17 at 18:16; Status DC Ondansetron HCl (Zofran) 4 mg PRN Q8HRS PRN IV NAUSEA/VOMITING; Start 01/18/17 at 21:15; Stop 01/19/17 at 21:14; Status DC Morphine Sulfate 4 mg PRN Q2HR PRN IV SEVERE PAIN Last administered on 04:13; Start 01/18/17 at 21:15; Stop 01/19/17 at 10:20; Status DC Acetaminophen (Tylenol) 650 mg PRN Q4HRS PRN PO FEVER Last administered on 01/18 22:13; Start 01/18/17 at 21:15; Stop 01/19/17 at 10:20; Status DC Sodium Chloride 1,000 ml @ 75 mls/hr [id number] IV Last administered on 05:15; Start 01/18/17 at 21:15 Metronidazole 100 ml @ 100 mls/hr Q8HRS IV Last administered on 01/19/17 06: 12; Start 01/18/17 at 22:00; Stop 01/19/17 at 10:00; Status DC Ciprofloxacin Lactate 200 ml @ 200 mls/hr Q12HR IV Last administered on 22:08; Start 01/18/17 at 22:00; Stop 01/19/17 at 10:00; Status DC Bupivacaine HCl/ Epinephrine Bitart (Sensorcain-Mpf Epi 0.5%-1:[id number]) 30 ml STK -MED ONCE .ROUTE Last administered on 01/19/17 08:28; Start 01/19/17 at 07:02 ; Stop 01/19/17 at 07:03; Status DC Dexamethasone Sodium Phosphate (Decadron) 20 mg STK-MED ONCE .ROUTE ; Start at 07:27; Stop 01/19/17 at 07:28; Status DC Ondansetron HCl (Zofran) 4 mg STK-MED ONCE .ROUTE ; Start 01/19/17 at 07:27; Stop 01/19/17 at 07:28; Status DC Propofol 20 ml @ As Directed STK-MED ONCE IV ; Start 01/19/17 at 07:27; Stop at 07:28; Status DC Lidocaine HCl (Lidocaine Pf 2% Vial) 5 ml STK-MED ONCE .ROUTE ; Start 01/19/17 at 07:27; Stop 01/19/17 at 07:28; Status DC Fentanyl Citrate (Fentanyl 2ml Vial) 100 mcg STK-MED ONCE .ROUTE ; Start at 07:32; Stop 01/19/17 at 07:33; Status DC Ondansetron HCl (Zofran) 4 mg PRN Q6HRS PRN IV NAUSEA/VOMITING; Start 01/19/17 at 08:15; Stop 01/19/17 at 18:00; Status DC Fentanyl Citrate (Fentanyl 2ml Vial) 25 mcg PRN Q5MIN PRN IV MILD PAIN; Start 01/19/17 at 08:15; Stop 01/19/17 at 10:41; Status DC Fentanyl Citrate (Fentanyl 2ml Vial) 50 mcg PRN Q5MIN PRN IV MODERATE PAIN; Start 01/19/17 at 08:15; Stop 01/19/17 at 10:41; Status DC Morphine Sulfate 1 mg PRN Q10MIN PRN IV SEVERE PAIN; Start 01/19/17 at 08:15; Stop 01/19/17 at 10:41; Status DC Ringer's Solution 1,000 ml @ 30 mls/hr Q24H IV ; Start 01/19/17 at 08:02; Stop 01/19/17 at 10:35; Status DC Lidocaine HCl 2 ml PRN 1X PRN ID PRIOR TO IV START; Start 01/19/17 at 08:15; Stop 01/19/17 at 18:00; Status DC Hydromorphone HCl (Dilaudid) 0.5 mg PRN Q10MIN PRN IV SEV PAIN, Second choice; Start 01/19/17 at 08:15; Stop 01/19/17 at 10:41; Status DC Prochlorperazine Edisylate (Compazine) 5 mg PACU PRN PRN IV NAUSEA, MRX1; Start 01/19/17 at 08:15; Stop 01/19/17 at 10:41; Status DC Fentanyl Citrate (Fentanyl 2ml Vial) 100 mcg STK-MED ONCE .ROUTE ; Start at 08:31; Stop 01/19/17 at 08:32; Status DC Oxycodone/ Acetaminophen (Percocet 5/325) 1 tab PRN Q4HRS PRN PO MILD PAIN; Start 01/19/17 at 08:45 Oxycodone/ Acetaminophen (Percocet 5/325) 2 tab PRN Q4HRS PRN PO MOD, SEVERE PAIN Last administered on 01/22/17 13:47; Start 01/19/17 at 08:45 Vancomycin HCl 2 gm/Sodium Chloride 500 ml @ 250 mls/hr 1X ONCE IV Last administered on 01/19/17 12:30; Start 01/19/17 at 11:00; Stop 01/19/17 at 12:59 ; Status DC Vancomycin HCl (Vanco Per Pharmacy) 1 each PRN DAILY PRN MC SEE COMMENTS Last administered on 01/21/17 00:24; Start 01/19/17 at 10:00; Stop 01/21/17 at 09:42 ; Status DC Piperacillin Sod/ Tazobactam Sod (Zosyn Per Pharmacy) 1 each PRN DAILY PRN MC SEE COMMENTS; Start 01/19/17 at 10:00; Stop 01/22/17 at 12:55; Status DC Piperacillin Sod/ Tazobactam Sod 3.375 gm/Sodium Chloride 100 ml @ 200 mls/hr Q6HRS IV Last administered on 01/20/17 16:58; Start 01/19/17 at 11:00; Stop at 23:31; Status DC Acetaminophen (Tylenol) 650 mg PRN Q6HRS PRN PO FEVER; Start 01/19/17 at 10:00 Ondansetron HCl (Zofran) 4 mg PRN Q6HRS PRN IV NAUSEA/VOMITING; Start 01/19/17 at 10:00 Morphine Sulfate 2 mg PRN Q2HR PRN IV PAIN Last administered on 01/21/17 21:56 ; Start 01/19/17 at 10:00 Tramadol HCl (Ultram) 50 mg PRN Q6HRS PRN PO PAIN; Start 01/19/17 at 10:00 Hydralazine HCl (Apresoline) 10 mg PRN Q4HRS PRN IVP ELEVATED BP, SEE COMMENTS ; Start 01/19/17 at 10:00 Docusate Sodium (Colace) 100 mg PRN DAILY PRN PO CONSTIPATION Last administered on 01/19/17 16:12; Start 01/19/17 at 10:00 Cyclobenzaprine HCl (Flexeril) 10 mg DAILY PO Last administered on 01/22/17 09 :00; Start 01/19/17 at 10:00 Gabapentin (Neurontin) 300 mg TID PO Last administered on 01/22/17 13:37; Start 01/19/17 at 10:00 Lisinopril (Prinivil) 20 mg DAILY PO Last administered on 01/19/17 11:21; Start 01/19/17 at 10:00; Stop 01/20/17 at 10:04; Status DC Meloxicam (Mobic) 15 mg DAILY PO Last administered on 01/22/17 11:38; Start at 10:00 Hydrochlorothiazide (Microzide) 12.5 mg DAILY PO Last administered on 11:21; Start 01/19/17 at 10:00; Stop 01/20/17 at 10:04; Status DC Enoxaparin Sodium (Lovenox 40mg Syringe) 40 mg Q24H SQ Last administered on 10:03; Start 01/20/17 at 10:00 Vancomycin HCl 1.5 gm/Sodium Chloride 500 ml @ 250 mls/hr Q12H IV Last administered on 01/21/17 00:12; Start 01/20/17 at 00:00; Stop 01/21/17 at 09:42 ; Status DC Vancomycin HCl 1 each 1X ONCE MC Last administered on 01/20/17 23:27; Start 01/20/17 at 23:30; Stop 01/20/17 at 23:31; Status DC Sodium Chloride 500 ml @ 500 mls/hr PRN Q3HRS PRN IV BP at 90 or below, max 2 doses Last administered on 01/20/17 00:50; Start 01/19/17 at 20:15; Stop at 00:50; Status DC Iron Sucrose 200 mg/Sodium Chloride 110 ml @ 55 mls/hr DAILY IV Last administered on 01/21/17 09:57; Start 01/20/17 at 14:00; Stop 01/21/17 at 12:20 ; Status DC Piperacillin Sod/ Tazobactam Sod 3.375 gm/Sodium Chloride 50 ml @ 100 mls/hr Q6HRS IV ; Start 01/20/17 at 23:31; Status Cancel Piperacillin Sod/ Tazobactam Sod 3.375 gm/Sodium Chloride 50 ml @ 100 mls/hr Q6HRS IV Last administered on 01/22/17 13:36; Start 01/21/17 at 00:00 Lactobacillus Acidophilus (Bacid, Debra-Bid) 1 tab TIDWMEALS PO Last administered on 01/22/17 13:37; Start 01/21/17 at 12:00 Zolpidem Tartrate (Ambien) 5 mg PRN QHS PRN PO INSOMNIA, MAY REPEAT IN 1HR; Start 01/21/17 at 12:30 Polysaccharide Iron Complex (Niferex 150) 150 mg DAILY PO Last administered on 01/22/17 10:38; Start 01/22/17 at 09:00 Lidocaine/Sodium Bicarbonate (Buffered Lidocaine 1%) 20 ml STK-MED ONCE IJ ; Start 01/22/17 at 09:06; Stop 01/22/17 at 09:07; Status DC Fentanyl Citrate (Fentanyl 2ml Vial) 100 mcg STK-MED ONCE .ROUTE ; Start at 09:09; Stop 01/22/17 at 09:10; Status DC Midazolam HCl (Versed) 2 mg STK-MED ONCE .ROUTE ; Start 01/22/17 at 09:09; Stop 01/22/17 at 09:10; Status DC Lidocaine/Sodium Bicarbonate (Buffered Lidocaine 1%) 20 ml 1X ONCE IJ Last administered on 01/22/17 09:41; Start 01/22/17 at 09:30; Stop 01/22/17 at 09:31 ; Status DC Midazolam HCl (Versed) 2 mg 1X ONCE IV Last administered on 01/22/17 09:42; Start 01/22/17 at 09:30; Stop 01/22/17 at 09:31; Status DC Fentanyl Citrate (Fentanyl 2ml Vial) 100 mcg 1X ONCE IV Last administered on 09:41; Start 01/22/17 at 09:30; Stop 01/22/17 at 09:31; Status DC Active Scripts Active Oxycodone-Acetaminophen 5-325 (Oxycodone Hcl/Acetaminophen) 1 Each Tablet 1 Tab PO PRN Q4HRS PRN Reported Lisinopril-Hctz 20-12.5 Mg Tab (Lisinopril/Hydrochlorothiazide) 1 Each Tablet 1 Tab PO DAILY Cyclobenzaprine Hcl 10 Mg Tablet 10 Mg PO DAILY Gabapentin 300 Mg Capsule 300 Mg PO TID Meloxicam 15 Mg Tablet 15 Mg PO DAILY Allergies Allergies: Coded Allergies: No Known Drug Allergies (Unverified , 01/18/17) ROS Review of System Patient reports surprisingly few positives in the review of systems. He reports intact appetite intake, bowel and bladder. He is denying weight loss. He did report history of periodontal disease. He is not significantly active. He is gainfully employed. Physical Exam General: Alert, Oriented X3, Cooperative, No acute distress HEENT: Atraumatic, PERRLA, EOMI, Mucous membr. moist/pink Lungs: Clear to auscultation Heart: Regular rate Abdomen: Normal bowel sounds, Soft Extremities: No clubbing, No cyanosis, No edema, Normal pulses Skin: Other (perirectal abscess identified with opening of roughly 2.5 cm x 2.5 cm with a depth of 7 cm noted. Minimal slough was identified and sparse drainage noted at the time of packing replacement. No significant periwound induration or erythema was identified.) Neuro: Normal speech, Sensation intact, Cranial nerves 3-12 NL Vitals VITALS Vital Signs Date Time Temp Pulse Resp B/P (MAP) Pulse Ox O2 Delivery O2 Flow Rate FiO2 01/22/17 13:47 18 95 Room Air 8.0 01/22/17 12:07 97.5 65 147/90 (109) 97.5 Labs Labs Laboratory Tests Test 01/20/17 23:30 01/21/17 04:20 01/22/17 08:25 Vancomycin Level Trough 14.2 mcg/mL (10.0-20.0) Vancomycin Last Dose Date 01/20/17 Vancomycin Last Dose Time 1200 White Blood Count 14.6 x10^3/uL (4.0-11.0) Red Blood Count 3.28 x10^6/uL (4.30-5.70) Hemoglobin 10.8 g/dL (13.0-17.5) Hematocrit 32.1 % (39.0-53.0) Mean Corpuscular Volume 98 fL (79-100) Mean Corpuscular Hemoglobin 33 pg (25-35) Mean Corpuscular Hemoglobin Concent 34 g/dL (31-37) Red Cell Distribution Width 13.2 % (11.5-14.5) Platelet Count 588 x10^3/uL (140-400) Neutrophils (%) (Auto) 68 % (31-73) Lymphocytes (%) (Auto) 21 % (24-48) Monocytes (%) (Auto) 8 % (0-9) Eosinophils (%) (Auto) 2 % (0-3) Basophils (%) (Auto) 0 % (0-3) Neutrophils # (Auto) 10.0 x10^3uL (1.8-7.7) Lymphocytes # (Auto) 3.1 x10^3/uL (1.0-4.8) Monocytes # (Auto) 1.2 x10^3/uL (0.0-1.1) Eosinophils # (Auto) 0.3 x10^3/uL (0.0-0.7) Basophils # (Auto) 0.1 x10^3/uL (0.0-0.2) Sodium Level 144 mmol/L (136-145) Potassium Level 3.7 mmol/L (3.5-5.1) Chloride Level 109 mmol/L (98-107) Carbon Dioxide Level 26 mmol/L (21-32) Anion Gap 9 (6-14) Blood Urea Nitrogen 16 mg/dL (8-26) Creatinine 1.1 mg/dL (0.7-1.3) Estimated GFR (Cockcroft-Gault) 70.3 Glucose Level 101 mg/dL (70-99) Calcium Level 8.3 mg/dL (8.5-10.1) Prothrombin Time 13.4 SEC (11.7-14.0) Prothromb Time International Ratio 1.1 (0.8-1.1) Laboratory Tests Test 01/22/17 08:25 Prothrombin Time 13.4 SEC (11.7-14.0) Prothromb Time International Ratio 1.1 (0.8-1.1) Assessment/Plan Assessment/Plan Perirectal abscess to the right medial buttock demonstrating 7 cm of depth. Would suggest aqua cell AG or alginate packing on a 2 time weekly basis. We have made arrangements to follow the patient up in 3 days' time in the wound care clinic. Outpatient antibiotics per infectious disease. We would like to track the depth of the wound initially to see if were getting good resolution. If not then instituting negative pressure wound therapy will be the next step. Care discussed at length with patient and family. PATRICIA TELLEZ DO January 22, 2017 14:35
--- NOTE | 2017-01-22 16:00 | RAD ---
CT-guided liver lesion biopsy Indication: 51-year-old male with multiple low-density liver lesions, most consistent with metastatic disease of unknown, but possibly pancreatic, primary, given a small low density defect within uncinate process of pancreas. Image guided liver biopsy has been requested for tissue diagnosis. Anesthesia: 21 minutes moderate sedation was provided utilizing a total of 2 mg Versed and 50 mcg fentanyl, IV. The patient was appropriately monitored by a qualified independent observer throughout the time of moderate sedation. Consent: The procedure was explained in its entirety to the patient and/or the patient's designated retail representative by a member of the treatment team. This included a discussion of risks and benefits and acceptable alternatives to the procedure, as well as expected consequences of no treatment at all. Discussion of risks included, but was not limited to, those that are most frequent and those that are rare, but possibly severe or life-threatening, as well as the possibility of unforeseen complications. Procedure: Informed consent was obtained from the patient. He was placed supine on the CT scanner. Preliminary noncontrast CT images were obtained through liver. Those images confirmed the presence of multiple small low-density liver lesions. A 2 cm hypodense lesion within the lateral aspect right lobe of liver was selected for biopsy. Overlying right lateral abdominal wall skin site was prepped and draped in the usual sterile fashion. Using aseptic technique, local anesthesia, and CT guidance, a 17-gauge guide needle was successfully introduced into the hypodense lesion. 3 18-gauge core biopsy samples were obtained, and were submitted in formalin to pathology. The biopsy guide needle was removed and a sterile dressing was applied. Patient tolerated the procedure well without apparent complication. Completion CT images revealed no evidence of intraparenchymal, subcapsular, or perihepatic bleeding. Impression: Successful, uneventful CT-guided liver lesion biopsy, as described. PQRS Compliance Statement: One or more of the following individualized dose reduction techniques was utilized for this procedure: 1. Automated exposure control. 2. Adjustment of MA and/or KV according to patient size. 3. Iterative reconstruction technique.
[2017-01-23 08:34] LABS: CEA 3.7 ng/mL (0.0-4.7)
--- NOTE | 2017-01-25 13:46 | PATHOLOGY ---
PATHOLOGY REPORT * * * * * * * * FINAL DIAGNOSIS: Liver lesion, CT-guided biopsy: - METASTATIC ADENOCARCINOMA, MODERATELY DIFFERENTIATED. SEE COMMENT. COMMENT: Sections of the liver lesion CT-guided biopsy reveal segments of liver tissue and a few small segments of skeletal muscle and fibroadipose tissue. There is extensive replacement of liver parenchyma by a malignant epithelial neoplasm. The neoplasm is composed of crowded small irregular glands, which are associated with an edematous and reactive fibroblastic stroma. The malignant cells have ample amounts of eosinophilic cytoplasm, and possess enlarged, rounded to ovoid moderately pleomorphic hyperchromatic nuclei containing prominent nucleoli. Mitotic figures are present. There is focal tumor necrosis. A panel of immunohistochemical stains is obtained and yields the following results: Cytokeratin 7: Tumor cells positive CK20: Tumor cells negative TTF-1: Tumor cells negative CDX2: Tumor cells positive The morphologic and immunophenotypic findings are supportive of the diagnosis of metastatic moderately differentiated adenocarcinoma. The most likely primary site in this case appears to be pancreas. An elevated CA19.9 of 880 is supportive of this impression. The case is also examined by Dr. Whitlock, who concurs with the diagnosis. REPORT ELECTRONICALLY SIGNED BY: Fracisco Stevenson M.D. DATE/TIME: 01/25/2017 13:46 * * * * * * * * GROSS PATHOLOGY: Received in formalin labeled "Ant Benson, liver biopsy," are four distinct needle cores of white-carranza to light carranaz soft tissue ranging from 0.4 to 1.6 cm in length, which are submitted entirely in cassette A1. (CAA; 01/23/2017) INITIAL CPT CODE(S): A; 53856, 79786, 95202, 46476, 93529 Professional services performed by [facility] at [address] [address] Technical services performed by [facility] at [address] [place] [address], [address], [place] [address] Dallas Santana fax: [phone] SPECIMEN(S) RECEIVED: A.Liver, needle biopsy CLINICAL HISTORY: Multiple liver lesions, ? mets, ? primary, ? uncinated pancreas lesion, Ca 19.9 pending, ?? pancreatic primary PATIENT: ANT BENSON /AGE: 905/07/1965 (Age: 51) PATIENT #: [id number] ALT CASE #: SPECIMEN COLLECTION DATE: 01/22/2017 SPECIMEN RECEIVED DATE: 01/22/2017 [facility] - [address] [place] [address] - PHONE: [phone] * * * END OF REPORT * * *
== END 2017-01-22 15:00 | disposition home or self-care (01) | DRG 854 ==
LOC: ER 16:12 → 5 NORTH 20:08 → OBSVTOIN 20:08
PROVIDERS: ADMIT Internal Medicine; ATTEND Internal Medicine
PROC: 0J9B0ZZ Drainage of Perineum Subcutaneous Tissue and Fascia, Open Approach (ICD-10-PCS; principal; 2017-01-19 08:00)
PROC: 0FB13ZX Excision of Right Lobe Liver, Percutaneous Approach, Diagnostic (ICD-10-PCS; 2017-01-20)
DX: A41.9 Sepsis, unspecified organism (principal); K50.90 Crohn's disease, unspecified, without complications; C78.7 Secondary malignant neoplasm of liver and intrahepatic bile duct; C25.9 Malignant neoplasm of pancreas, unspecified; K61.1 Rectal abscess; F17.210 Nicotine dependence, cigarettes, uncomplicated; F32.9 Major depressive disorder, single episode, unspecified; I10 Essential (primary) hypertension; D50.9 Iron deficiency anemia, unspecified; R33.9 Retention of urine, unspecified; M19.90 Unspecified osteoarthritis, unspecified site; K64.9 Unspecified hemorrhoids; Z79.1 Long term (current) use of non-steroidal anti-inflammatories (NSAID); Z79.899 Other long term (current) drug therapy; Z82.49 Family history of ischemic heart disease and other diseases of the circulatory system; Z90.49 Acquired absence of other specified parts of digestive tract; Z83.3 Family history of diabetes mellitus; Z82.3 Family history of stroke; Z79.2 Long term (current) use of antibiotics
CPT/HCPCS: 36415; 47000; 74177; 77012; 80048; 80053; 80074; 80202; 82378; 83540; 83550; 85007; 85027; 85610; 85651; 86140; 86301; 87071; 87075; 87205; 88307; 88341; 88342; A4215; J0744; J1100; J1650; J1756; J2250; J2270; J2405; J2543; J2704; J3010; J3370; J3490; J7030; J7040; J7120; Q9966; Q9967

== ENCOUNTER → 2017-01-25 | Outpatient (CLI) | payer BC ==
[2017-01-22 12:07] VITALS: BP 147/90
[~2017-01-25] MED LIST: AMOX1TAB61 PO; CYCL10TA2 PO; GABA300C8 PO; LISI1TAB5 PO; MELO-150 PO; OXYC1TAB7 PO
== END | disposition home or self-care (01) ==
LOC: PMGWOUND 11:07
PROVIDERS: ATTEND Preventive Medicine Undersea and Hyperbaric Medicine
DX: L02.31 Cutaneous abscess of buttock (principal); I10 Essential (primary) hypertension; F32.9 Major depressive disorder, single episode, unspecified; F17.210 Nicotine dependence, cigarettes, uncomplicated; Z72.89 Other problems related to lifestyle; Z85.07 Personal history of malignant neoplasm of pancreas
CPT/HCPCS: 99205

== ENCOUNTER → 2017-01-29 | Outpatient (CLI) | payer BC ==
[2017-01-22 12:07] VITALS: BP 147/90
== END | disposition home or self-care (01) ==
LOC: PMGWOUND 08:15
PROVIDERS: ATTEND Emergency Medicine Undersea and Hyperbaric Medicine
DX: L02.31 Cutaneous abscess of buttock (principal); F32.9 Major depressive disorder, single episode, unspecified; M19.90 Unspecified osteoarthritis, unspecified site; I10 Essential (primary) hypertension; Z85.07 Personal history of malignant neoplasm of pancreas; F17.210 Nicotine dependence, cigarettes, uncomplicated; Z72.89 Other problems related to lifestyle
CPT/HCPCS: 99213

== ENCOUNTER → 2017-02-01 | Outpatient (CLI) | payer BC ==
[2017-01-22 12:07] VITALS: BP 147/90
[~2017-02-01] MED LIST changes: -MELO-150 PO; +MELO15TA23 PO
== END | disposition home or self-care (01) ==
LOC: PMGWOUND 08:18
PROVIDERS: ATTEND Preventive Medicine Undersea and Hyperbaric Medicine
DX: L02.31 Cutaneous abscess of buttock (principal); I10 Essential (primary) hypertension; F32.9 Major depressive disorder, single episode, unspecified; M19.90 Unspecified osteoarthritis, unspecified site; Z85.07 Personal history of malignant neoplasm of pancreas; F17.210 Nicotine dependence, cigarettes, uncomplicated; Z72.89 Other problems related to lifestyle
CPT/HCPCS: 97597

== ENCOUNTER → 2017-02-08 | Outpatient (CLI) | payer BC ==
[2017-01-22 12:07] VITALS: BP 147/90
== END | disposition home or self-care (01) ==
LOC: PMGWOUND 08:55
PROVIDERS: ATTEND Preventive Medicine Undersea and Hyperbaric Medicine
DX: L02.31 Cutaneous abscess of buttock (principal); I10 Essential (primary) hypertension; F32.9 Major depressive disorder, single episode, unspecified; M19.90 Unspecified osteoarthritis, unspecified site; Z85.07 Personal history of malignant neoplasm of pancreas; F17.210 Nicotine dependence, cigarettes, uncomplicated; Z72.89 Other problems related to lifestyle
CPT/HCPCS: 99214

== ENCOUNTER → 2017-02-11 | Outpatient (CLI) | payer BC ==
[2017-01-22 12:07] VITALS: BP 147/90
[~2017-02-11] MED LIST changes: +CONTRAST GIVEN MC PRN; +IOHEXOL 300 MG/ML 75 ML VIAL IV ONE
--- NOTE | 2017-02-11 09:06 | RAD ---
Indication malignant neoplasm of the pancreas. Assess for potential metastatic disease in the chest. Contrast imaging through the chest was performed. No prior CT chest imaging is available. Note is made of a CT examination of the abdomen and pelvis 01/18/2017. Known mass associated with the head of the pancreas is reproduced. There are multiple masses within the liver compatible with widespread metastatic disease. The number and size of the masses has increased relative to the study 01/18/2017. There is a hypervascular mass in the right lobe of the liver. This may were reflect an hemangioma. The thoracic aorta appears unremarkable. There are few mediastinal lymph nodes. Definite pathologic mediastinal or hilar adenopathy is not seen. There are small pulmonary nodules in the right lower lobe, images 18 and 22 series 2 concerning for metastatic disease. There is a peripheral nodule in the right lower lobe image 28 also concerning for metastatic disease. Smaller nodules are additionally seen in the right lower lobe. There is a pulmonary nodule in the right lower lobe image 40 slightly larger than on the previous exam again most compatible with pulmonary metastatic disease. There are nodules in the lingula and left lower lobe also very concerning for metastatic disease. All of the aforementioned nodules are under 1 cm in size. There is a sclerotic focus associated with a midthoracic vertebral body segment likely reflecting a bone island. IMPRESSION: Multiple pulmonary nodules most compatible, given the findings in the liver, with pulmonary metastatic disease. Progressive hepatic metastatic disease relative to the study 01/18/2017 PQRS Compliance Statement: One or more of the following individualized dose reduction techniques were utilized for this examination: 1. Automated exposure control 2. Adjustment of the mA and/or kV according to patient size 3. Use of iterative reconstruction technique
== END | disposition home or self-care (01) ==
LOC: CT 08:22
PROVIDERS: ATTEND Internal Medicine Hematology & Oncology
DX: C25.9 Malignant neoplasm of pancreas, unspecified (principal); C78.7 Secondary malignant neoplasm of liver and intrahepatic bile duct; C78.00 Secondary malignant neoplasm of unspecified lung
CPT/HCPCS: 71260; Q9967

== ENCOUNTER → 2017-02-15 | Outpatient (CLI) | payer BC ==
[2017-01-22 12:07] VITALS: BP 147/90
[~2017-02-15] MED LIST changes: -CONTRAST GIVEN MC PRN; -IOHEXOL 300 MG/ML 75 ML VIAL IV ONE
== END | disposition home or self-care (01) ==
LOC: PMGWOUND 09:29
PROVIDERS: ATTEND Preventive Medicine Undersea and Hyperbaric Medicine
DX: L02.31 Cutaneous abscess of buttock (principal); I10 Essential (primary) hypertension; F32.9 Major depressive disorder, single episode, unspecified; M19.90 Unspecified osteoarthritis, unspecified site; F17.210 Nicotine dependence, cigarettes, uncomplicated; Z72.89 Other problems related to lifestyle; Z85.05 Personal history of malignant neoplasm of liver; Z85.07 Personal history of malignant neoplasm of pancreas
CPT/HCPCS: 99213

== ENCOUNTER → 2017-02-20 | Outpatient (CLI) | payer BC ==
[~2017-02-20] VITALS: Ht 185.4 cm; Wt 88.0 kg
[2017-02-20] VITALS (8 sets, daily range): BP systolic 127–169; BP diastolic 77–97
[~2017-02-20] MED LIST changes: +HEPARIN PF 500 UNIT/5 ML DISP.SYRIN. IV ONE; +LIDOCAINE 1%/EPI 1:100,000 20 ML VIAL. IJ ONE; +LIDOCAINE 1%/EPI 1:100,000 20 ML VIAL. ONE; +MIDAZOLAM HCL/PF 5 MG/5 ML VIAL. IV ONE; +MIDAZOLAM HCL/PF 5 MG/5 ML VIAL. ONE; +OXYC20TA34 PO; +VANCOMYCIN 1GM IVPB FOR OMNI 250 ML IRR ONE; +VANCOMYCIN 1GM IVPB FOR OMNI 250 ML IV ONE; +VANCOMYCIN 1GM IVPB FOR OMNI 250 ML ONE; +fentaNYL PF VIAL 250 MCG/5 ML VIAL IV ONE; +fentaNYL PF VIAL 250 MCG/5 ML VIAL ONE
[2017-02-20 08:38] LABS: BASO # 0.1 x10^3/uL (0.0-0.2); BASO % 1 % (0-3); EOS % 2 % (0-3); HEMATOCRIT 38.4 % (39.0-53.0); HEMOGLOBIN 13.2 g/dL (13.0-17.5); LYMPH # 2.4 x10^3/uL (1.0-4.8); LYMPH % 23 % (24-48); MEAN CORPUSCULAR HEMOGLOBIN 33 pg (25-35); MEAN CORPUSCULAR HGB CONC 34 g/dL (31-37); MEAN CORPUSCULAR VOLUME 95 fL (79-100); MONO % 10 % (0-9); NEUT % 64 % (31-73); PLATELET COUNT 479 x10^3/uL (140-400); RED BLOOD COUNT 4.06 x10^6/uL (4.30-5.70); RED CELL DISTRIBUTION WIDTH 13.2 % (11.5-14.5); WHITE BLOOD COUNT 10.5 x10^3/uL (4.0-11.0)
[2017-02-20 08:49] LABS: INR 1.1 (0.8-1.1); PROTHROMBIN TIME PATIENT 13.3 SEC (11.7-14.0)
--- NOTE | 2017-02-20 10:17 | PDOC ---
MODERATE SEDATION ASSESSMENT RISKS/ALTERNATIVES Risks/Alternatives Risks and alternatives of this type of sedation and procedure discussed with: RISK/ALTERNATIVES: Patient H & P ON CHART H & P H & P on chart and reviewed for co-morbid conditions and appropriate labs. H&P ON CHART: Yes STATUS PREG STATUS ASSESSED: N/A MEDS/ALLERGIES REVIEWED Meds/Allergies Reviewed Medications and Allergies including time and route of recently administered narcotics and sedatives. MEDS/ALLERGIES REVIEWED: Yes ASA RATING ASA RATING: III AIRWAY ASSESSMENT Airway Assessment Airway patency, oral function limitations, presence of caps, crowns, dentures, partials, and ability to extend neck assessed. AIRWAY ASSESSMENT: Yes MALLAMPATI SCORE MALLAMPATI SCORE: II PRE-SEDATION ASSESSMENT PRE-SEDATION ASSESSMENT: Yes JADIEL SALAZAR MD Feb 20, 2017 10:17
--- NOTE | 2017-02-20 10:20 | PDOC1 ---
History and Physical Date of Procedure Date of Admission 02/20/17 Procedure Procedure Sono/fluoro guided Power Port insertion Indication Indication 51 YO male with metastatic pancreatic cancer Past Medical History Past Medical History See Nursing Pre Procedure PMH Past Surgical History Past Surgical History See Nursing Pre Procedure PSH Current Medications Current Medications Current Medications Heparin Sodium (Porcine) (Hep Lock Adult) 500 unit STK-MED ONCE IV ; Start 02/20 at 08:39; Stop 02/20/17 at 08:40; Status DC Lidocaine/ Epinephrine (Xylocaine 1%-Epi 1:100,000) 20 ml STK-MED ONCE .ROUTE ; Start 02/20/17 at 08:39; Stop 02/20/17 at 08:40; Status DC Heparin Sodium/ Sodium Chloride 500 ml @ As Directed STK-MED ONCE .ROUTE ; Start 02/20/17 at 08:39; Stop 02/20/17 at 08:40; Status DC Vancomycin HCl 250 ml @ As Directed STK-MED ONCE .ROUTE ; Start 02/20/17 at 08: 39; Stop 02/20/17 at 08:40; Status DC Midazolam HCl (Versed) 5 mg STK-MED ONCE .ROUTE ; Start 02/20/17 at 09:29; Stop 02/20/17 at 09:30; Status DC Fentanyl Citrate (Fentanyl 5ml Vial) 250 mcg STK-MED ONCE .ROUTE ; Start at 09:29; Stop 02/20/17 at 09:30; Status DC Cefazolin Sodium 50 ml @ As Directed STK-MED ONCE IV ; Start 02/20/17 at 09:29; Stop 02/20/17 at 09:30; Status DC Heparin Sodium/ Sodium Chloride 1,000 unit 1X ONCE IART ; Start 02/20/17 at 10: 30; Stop 02/20/17 at 10:31 Midazolam HCl (Versed) 3 mg 1X ONCE IV ; Start 02/20/17 at 10:30; Stop at 10:31 Fentanyl Citrate (Fentanyl 5ml Vial) 150 mcg 1X ONCE IV ; Start 02/20/17 at 10: 30; Stop 02/20/17 at 10:31 Lidocaine/ Epinephrine (Xylocaine 1%-Epi 1:100,000) 15 ml 1X ONCE IJ ; Start at 10:30; Stop 6/28/17 at 10:31 Vancomycin HCl 250 ml @ 250 mls/hr 1X ONCE IV ; Start 02/20/17 at 10:30; Stop 02/20/17 at 11:29 Cefazolin Sodium 50 ml @ 100 mls/hr 1X ONCE IV ; Start 02/20/17 at 10:30; Stop 02/20/17 at 10:59 Heparin Sodium (Porcine) (Hep Lock Adult) 500 unit 1X ONCE IV ; Start 02/20/17 at 10:30; Stop 02/20/17 at 10:31 Active Scripts Active Oxycodone-Acetaminophen 5-325 (Oxycodone Hcl/Acetaminophen) 1 Each Tablet 1 Tab PO PRN Q4HRS PRN Reported Oxycontin (Oxycodone HCl) 20 Mg Tab.er.12h 20 Mg PO BID Lisinopril-Hctz 20-12.5 Mg Tab (Lisinopril/Hydrochlorothiazide) 1 Each Tablet 1 Tab PO DAILY Allergies Allergies: Coded Allergies: No Known Drug Allergies (Unverified , 01/18/17) Physical Exam Vital Signs Vital Signs Date Time Temp Pulse Resp B/P (MAP) Pulse Ox O2 Delivery O2 Flow Rate FiO2 02/20/17 08:35 97.5 77 18 140/93 (109) 98 Room Air 97.5 Lungs: Clear to auscultation Heart: Regular rate Psych/Mental Status: Mental status NL Assessment Assessment 51 YO male with metastatic pancreatic cancer Problems: Plan Plan Image guided Power Port insertion for chemotx JADIEL SALAZAR MD Feb 20, 2017 10:20
--- NOTE | 2017-02-20 10:23 | PDOC ---
Exam Manager Of Organizational Development Manager Of Organizational Development Christina Finishing Area Operator Finishing Area Operator F [employer] Pre-Procedure Diagnosis Pre-Procedure Diagnosis 51 YO male with metastatic pancreatic cancer Post-Procedure Diagnosis Post-Procedure Diagnosis Same Procedure Performed Procedure Performed Sono/fluoro guided right IJ Power Port insertion Type of Anesthesia Type of Anesthesia Local + Mod sedation Estimated Blood Loss EBL: Minimal Drain/Tubes Drains/Tubes Rt IJ 8F tunneled Power Port Condition of Patient Condition of Patient Stable. No apparent complication. Disposition Disposition Home from [facility] post recovery, if no problems. F/u with Dr Casiano. OK to use Power Port. Full report to follow. JADIEL SALAZAR MD Feb 20, 2017 10:23
--- NOTE | 2017-02-20 15:06 | RAD ---
Ultrasound and fluoroscopy guided right IJ power port insertion Indication: 51-year-old male with metastatic pancreatic cancer. Image guided power port insertion has been requested by oncology for chemotherapy. Fluoroscopy time: 0.8 minutes Kerma-area product: 1 Gycm2 Moderate sedation: 37 minutes moderate sedation was provided utilizing a total of 3 mg Versed and 150 mcg fentanyl, IV. The patient was appropriately monitored by a qualified independent observer throughout the course of moderate sedation. Antibiotic: A single dose of Ancef was administered within 1 hour of the procedure start time. Consent: The procedure was explained in its entirety to the patient and/or the patient's designated branch sales and service representative by a member of the treatment team. This included a discussion of risks and benefits and commonly accepted alternatives to the procedure, as well as expected consequences of no treatment at all. Discussion of risks included, but was not limited to, those that are most frequent and those that are rare, but possibly severe or life-threatening, as well as the possibility of unforeseen complications. Sterility: All elements of maximal sterile barrier technique, hand hygiene, skin preparation, and, if ultrasound was used, sterile ultrasound technique were followed. Procedure: Informed consent was obtained from the patient. He was placed supine on the angiography table. Preliminary ultrasound examination of right neck revealed wide patency of right internal jugular vein, which was documented with a single hard copy ultrasound image. Right neck and upper chest were then prepped and draped in the usual sterile fashion, utilizing all elements of maximal sterile barrier technique, as described above. Moderate sedation was provided with IV Versed and fentanyl. 1 g Ancef was given IV, prophylactically. Using aseptic technique and local anesthesia, a small skin incision was made lateral to right internal jugular vein, just above clavicle. Using aseptic technique, local anesthesia, direct sterile ultrasound guidance, and the micropuncture system, successful percutaneous entry was achieved into right internal jugular vein. The right IJ venostomy tract was then dilated and the 8 [place] catheter from a Bard power port system was easily advanced centrally through an 8.5 [place] peel-away sheath, and was positioned with this tip at the level of upper right atrium utilizing fluoroscopic guidance. A skin site suitable for placement of the power port body was then selected and marked along upper anterior aspect of right chest, overlying anterior aspect of right second rib. Using aseptic technique and local anesthesia, a horizontally oriented skin incision was made in this location. A subcutaneous chest wall pocket was then created and was packed with vancomycin soaked gauze. A subcutaneous tunnel was then fashioned between the chest wall pocket and the initial supraclavicular incision. The 8 [place] power port catheter was then pulled through the subcutaneous tunnel from superior to inferior, utilizing the tunneling device provided. The catheter was then trimmed to an appropriate length and was connected to the power port body, which had been previously flushed with, and soaked in, vancomycin solution. The vancomycin soaked gauze was then removed from the chest wall pocket, which was then copiously irrigated with vancomycin solution. The power port body was then easily introduced into the chest wall pocket and was secured in place utilizing two 2-0 Vicryl sutures. The power port was then accessed utilizing a Weaver needle, was documented to flush and aspirate normally, and was packed with heparinized saline. The chest incision was then closed with 2-0 Vicryl, 4-0 Vicryl, Steri-Strips, and sterile dressing. The small supraclavicular incision was closed with 4-0 Vicryl, Steri-Strips, and sterile dressing. Patient tolerated the procedure well without apparent complication. Satisfactory position of the power port was confirmed with a single fluoroscopic spot image. Impression: Successful, uneventful ultrasound and fluoroscopy guided placement of right IJ 8 [place] tunneled power port, as described.
== END | disposition home or self-care (01) ==
LOC: INTRAD 07:53
PROVIDERS: ATTEND Internal Medicine Hematology & Oncology
DX: C25.9 Malignant neoplasm of pancreas, unspecified (principal); Z86.69 Personal history of other diseases of the nervous system and sense organs; I10 Essential (primary) hypertension; Z90.49 Acquired absence of other specified parts of digestive tract; Z87.39 Personal history of other diseases of the musculoskeletal system and connective tissue; M19.90 Unspecified osteoarthritis, unspecified site; Z72.89 Other problems related to lifestyle; Z72.0 Tobacco use; F17.200 Nicotine dependence, unspecified, uncomplicated
CPT/HCPCS: 36415; 36561; 76937; 77001; 85027; 85610; 99152; 99153; C1751; C1892; J0690; J2250; J3010; J3370; J3490

== ENCOUNTER → 2017-04-16 | Outpatient (CLI) | payer BC ==
[2017-02-20 12:25] VITALS: BP 141/97
[~2017-04-16] MED LIST changes: +CONTRAST GIVEN MC PRN; -HEPARIN PF 500 UNIT/5 ML DISP.SYRIN. IV ONE; +IOHEXOL 240 MG/ML 50ML VIAL. PO ONE; +IOHEXOL 300 MG/ML 100ML VIAL. IV ONE; -LIDOCAINE 1%/EPI 1:100,000 20 ML VIAL. IJ ONE; -LIDOCAINE 1%/EPI 1:100,000 20 ML VIAL. ONE; -MIDAZOLAM HCL/PF 5 MG/5 ML VIAL. IV ONE; -MIDAZOLAM HCL/PF 5 MG/5 ML VIAL. ONE; -VANCOMYCIN 1GM IVPB FOR OMNI 250 ML IRR ONE; -VANCOMYCIN 1GM IVPB FOR OMNI 250 ML IV ONE; -VANCOMYCIN 1GM IVPB FOR OMNI 250 ML ONE; -fentaNYL PF VIAL 250 MCG/5 ML VIAL IV ONE; -fentaNYL PF VIAL 250 MCG/5 ML VIAL ONE
--- NOTE | 2017-04-16 12:02 | KCIC ---
CT chest, abdomen and pelvis with contrast History:Malignant neoplasm of pancreas.. Cholecystectomy. Appendectomy. Chemotherapy x4. Technique: After bolus of intravenous contrast, CT imaging was performed of the chest, abdomen and pelvis. Oral contrast is given. Exposure: One or more of the following individualized dose reduction techniques were utilized for this examination: 1. Automated exposure control 2. Adjustment of the mA and/or kV according to patient size 3. Use of iterative reconstruction technique. Comparison: CT chest study from February 11, 2017 at [facility]. CT abdomen pelvis study January 18, 2017 at [facility]. CHEST: Thoracic aorta: Mild ectasia of the ascending aorta, similar to prior study. Great vessel origins:Patent Pulmonary arteries:Limited visualization due to technique, but no obvious large central embolism. Thyroid gland:Visualized aspect is unremarkable. Lymph nodes: Small axillary lymph nodes are seen. Largest node without a fatty hilum measures 13 mm. Small mediastinal and right hilar lymph nodes are seen without pathologic enlargement. Heart: No significant pericadial effusion. Pleural spaces: No significant effusion Lungs: Scattered small noncalcified pulmonary nodules are identified in both lungs. Some of these appear slightly smaller than on the prior study, although some of this could be due to slice position. No gross progression is seen.. Trachea and central airways: Patent Bones: Small dense nodule within a midthoracic vertebral body is likely a bone island and is unchanged. No aggressive bone destruction is identified. ABDOMEN PELVIS: Pneumoperitoneum: None visualized. Liver: Multiple liver lesions are again identified. These have slightly increased in size and in number since the prior study, particularly the previous abdomen study, but also probably as compared with limited visualization on the prior CT chest exam.. Spleen: Unremarkable Pancreas: Small low-density lesion identified in the pancreatic head with small calcification appears similar to the prior study when compared with a similar previous slice, and presumably represents the patient's known pancreatic malignant mass. Kidneys:Unremarkable Adrenals:No evidence of mass. Gallbladder: Surgically absent. Aorta: Abdominal aorta is nonaneurysmal Lymph nodes: Mildly enlarged retroperitoneal lymph nodes are seen in the aortocaval region some of these have slightly increased. A lymph node on axial images 36 now measures 15 mm, compared with 10 mm on the prior study. Mild hazy stranding is identified within the fat around the aortocaval region and extending into the central mesentery, was also seen previously. Enlarged lymph nodes in the portal caval region are again identified and appear roughly similar. Mildly prominent inguinal lymph nodes are similar. GI tract: No bowel obstruction. No paracolonic inflammation. Appendix: Not visualized. Ascites: No gross ascites. Urinary bladder: Not opacified or distended. No evidence of pelvic mass, Bones: Degenerative changes of the spine. IMPRESSION: 1. Small mass involving the head of the pancreas appears similar to the previous study, presumably the patient's known malignant pancreatic mass. 2. Multiple hepatic masses, increased in size and number since the prior exams, presumably metastatic disease. 3. Multiple pulmonary nodules, compatible with metastatic disease. Some of these appear slightly smaller than on the prior exam. 4. Lymph node enlargement is again seen, with slight worsening in the aortocaval region. Electronically signed by: Mg Thompson MD (04/16/2017 11:59 AM) [facility] [id number]
== END | disposition home or self-care (01) ==
LOC: KCIC CT 08:28
PROVIDERS: ATTEND Internal Medicine Hematology & Oncology
DX: R91.8 Other nonspecific abnormal finding of lung field (principal); R59.9 Enlarged lymph nodes, unspecified; R16.0 Hepatomegaly, not elsewhere classified; Z85.89 Personal history of malignant neoplasm of other organs and systems
CPT/HCPCS: 71260; 74177; Q9966; Q9967

== ENCOUNTER → 2017-07-10 | Outpatient (CLI) | payer BC ==
[2017-02-20 12:25] VITALS: BP 141/97
--- NOTE | 2017-07-10 12:14 | RAD ---
CT chest, abdomen and pelvis 07/10/2017 Clinical indication: Malignant neoplasm of the pancreas. Comparison: CT chest abdomen and pelvis 04/16/2017, CT abdomen and pelvis 01/18/2017, CT abdomen and pelvis 03/31/2009. Technique: Multiple CT images of the chest, abdomen and pelvis were obtained following the intravenous administration of 75 mL Omnipaque 300. PQRS Compliance Statement: One or more of the following individualized dose reduction techniques were utilized for this examination: 1. Automated exposure control 2. Adjustment of the mA and/or kV according to patient size 3. Use of iterative reconstruction technique Findings: Chest: Heart size is normal without pericardial effusion. The thoracic aorta is normal in caliber. There is a right IJ central venous catheter with distal tip terminating in the superior cavoatrial junction. No axillary, mediastinal or hilar lymphadenopathy. The central airways are patent. Development of subpleural groundglass nodules in the right upper lobe series 2/image 17. There is a stable calcified granuloma in the subpleural right lower lobe. There are multiple additional sub-6 mm noncalcified pulmonary nodules scattered throughout both lungs. Lithographic Stripper left lung nodule measures 0.3 cm series 2/image 19. Lithographic Stripper noncalcified right lung nodule measures 0.3 cm in the right upper lobe series 2/image 30. No new or enlarging noncalcified pulmonary nodules. No pleural effusion or pneumothorax. Partial visualization of lower anterior spinal fixation of the cervical spine. There is a stable sclerotic lesion at T7. No destructive osseous lesions. Abdomen and pelvis: Interval improvement in multifocal hepatic hypodensities scattered throughout both lobes of the liver. Lithographic Stripper hepatic segment 7 hypodensity measures 0.6 cm series 4/image 10, previously 2.1 cm. Lithographic Stripper hepatic segment 4A lesion measures 0.6 cm series 4/image 10, previously 1.8 cm. Multiple hepatic hypodensities are no longer visualized. Prior cholecystectomy. No bile duct dilatation. Spleen, adrenal glands and kidneys are unremarkable. No hydronephrosis. Interval decrease in hepatic hypodensity with eccentric calcification in the uncinate process measuring 0.5 cm series 4/image 36, previously 0.8 cm. No main branch pancreatic ductal dilatation. Improvement in peripancreatic and retroperitoneal lymphadenopathy. Lithographic Stripper periportal lymph node measures 1.4 cm series 4/image 29, previously 1.9 cm. Small and large bowel loops are normal in caliber without obstruction. Postsurgical changes of a prior appendectomy. Highly distended and unopacified urinary bladder unremarkable. Prostate and seminal vesicles are present. No iliac or inguinal lymphadenopathy. No pelvic free fluid. There are no destructive osseous lesions. Impression: Chest: 1. No significant change in sub-6 mm bilateral noncalcified pulmonary nodules. Findings are indeterminate between pulmonary metastatic disease or infectious/inflammatory nodules. Follow-up CT chest is recommended. 2. No thoracic lymphadenopathy. Abdomen and pelvis: 1. Interval decrease in pancreatic uncinate process hypodensity with eccentric calcification may represent primary pancreatic malignancy. 2. Significant improvement in the left focal hepatic metastatic disease. 3. Improvement in abdominal heidy metastatic disease.
--- NOTE | 2017-07-10 13:03 | RAD ---
EXAM: Bone scintigraphy. 07/10/2017 HISTORY: Pancreatic carcinoma. TECHNIQUE: Following the intravenous injection of 25.2 mCi of Tc-99m labeled methylene diphosphonate (MDP), delayed images of the whole body were performed in anterior and posterior projections. FINDINGS: There is degenerative uptake in the bilateral shoulders, wrists and knees. There is a focus of uptake at the sternomanubrial articulation with no corresponding abnormality on same-day CT chest and is likely degenerative. There are no foci of intense uptake suggestive of osseous metastatic disease. IMPRESSION: No scintigraphic evidence of osseous metastatic disease.
== END | disposition home or self-care (01) ==
LOC: NM 08:24
PROVIDERS: ATTEND Internal Medicine Hematology & Oncology
DX: C25.1 Malignant neoplasm of body of pancreas (principal); C78.7 Secondary malignant neoplasm of liver and intrahepatic bile duct
CPT/HCPCS: 71260; 74177; 78306; 96374; A9503; Q9966; Q9967

== ENCOUNTER → 2017-09-11 | Outpatient (CLI) | payer BC ==
[2017-09-11] MEDS: IOHEXOL 240 MG/ML 50ML VIAL. PO ×2 (10:04)
[2017-09-11] MEDS: IOHEXOL 300 MG/ML 100ML VIAL. IV ×2 (10:04)
== END | disposition home or self-care (01) ==
LOC: CT 08:23
DX: C25.9 Malignant neoplasm of pancreas, unspecified (principal); M43.27 Fusion of spine, lumbosacral region; K76.9 Liver disease, unspecified; R91.1 Solitary pulmonary nodule; R59.1 Generalized enlarged lymph nodes
CPT/HCPCS: 71260; 74177; Q9966; Q9967

== ENCOUNTER 2017-10-15 09:47 | Emergency (ER) | payer BC ==
[2017-10-15 10:26] LABS: ADD MAN DIFF? NO
[2017-10-15] MEDS: diphenhydrAMINE 50 MG/ML VIAL IVP ×2 (10:29)
[2017-10-15 10:31] LABS: BASO # 0.1 x10^3/uL (0.0-0.2); BASO % 1 % (0-3); EOS # 0.1 x10^3/uL (0.0-0.7); EOS % 2 % (0-3); HEMATOCRIT 39.7 % (39.0-53.0); HEMOGLOBIN 13.5 g/dL (13.0-17.5); LYMPH # 1.5 x10^3/uL (1.0-4.8); LYMPH % 21 % (24-48); MEAN CORPUSCULAR HEMOGLOBIN 34 pg (25-35); MEAN CORPUSCULAR HGB CONC 34 g/dL (31-37); MEAN CORPUSCULAR VOLUME 101 fL (79-100); MONO # 0.9 x10^3/uL (0.0-1.1); MONO % 13 % (0-9); NEUT # 4.7 x10^3uL (1.8-7.7); NEUT % 64 % (31-73); PLATELET COUNT 250 x10^3/uL (140-400); RED BLOOD COUNT 3.94 x10^6/uL (4.30-5.70); RED CELL DISTRIBUTION WIDTH 15.4 % (11.5-14.5); WHITE BLOOD COUNT 7.3 x10^3/uL (4.0-11.0)
[2017-10-15 10:48] LABS: BILIRUBIN,URINE NEGATIVE (NEG); CLARITY,URINE CLEAR; COLOR,URINE YELLOW; GLUCOSE,URINE NEGATIVE (NEG); NITRITE,URINE NEGATIVE (NEG); PROTEIN,URINE NEGATIVE (NEG-TRACE); UROBILINOGEN,URINE 0.2 mg/dL (0.2 mg/dL)
[2017-10-15 10:53] LABS: ANION GAP 10 (6-14); BLOOD UREA NITROGEN 11 mg/dL (8-26); BUN/CREATININE RATIO 11 (6-20); CALCIUM 9.3 mg/dL (8.5-10.1); CARBON DIOXIDE 27 mmol/L (21-32); CHLORIDE 101 mmol/L (98-107); GFR 78.2; GLUCOSE 111 mg/dL (70-99); POTASSIUM 3.9 mmol/L (3.5-5.1); SODIUM 138 mmol/L (136-145)
[2017-10-15 10:54] LABS: TROPONINI < 0.017 ng/mL (0.000-0.055)
[2017-10-15 10:56] LABS: ETHANOL < 10 mg/dL (0-10)
[2017-10-15 10:57] LABS: ALBUMIN 3.6 g/dL (3.4-5.0); ALBUMIN/GLOBULIN RATIO 0.8 (1.0-1.7); ALK PHOS 309 U/L (46-116); ALT (SGPT) 92 U/L (16-63); AMPHETAMINE/METHAMPHETAMINE NEG (NEG); AST (SGOT) 61 U/L (15-37); BARBITURATES NEG (NEG); BENZODIAZEPINES NEG (NEG); CANNABINOIDS NEG (NEG); COCAINE NEG (NEG); ETHANOL, URINE NEG (NEG); LIPASE 97 U/L (73-393); METHADONE NEG (NEG); OPIATES POS (NEG); PHENCYCLIDINE NEG (NEG); TOTAL BILIRUBIN 0.3 mg/dL (0.2-1.0); TOTAL PROTEIN 8.3 g/dL (6.4-8.2)
[2017-10-15 11:06] LABS: BACTERIA,URINE 0 /HPF (0-FEW); RBC,URINE 0 /HPF (0-2); SQUAMOUS EPITHELIAL CELL,UR OCC /LPF; WBC,URINE OCC /HPF (0-4)
[2017-10-15 11:22] LABS: CKMB MASS < 0.5 ng/mL (0.0-3.6); CREATINE KINASE 53 U/L (39-308)
[2017-10-15 11:22] LABS: NT-PRO BNP 17 pg/mL (0-124)
[2017-10-15] MEDS: HEPARIN PF 500 UNIT/5 ML DISP.SYRIN. IV ×2 (12:25)
== END 2017-10-15 12:32 | disposition home or self-care (01) ==
LOC: ER 09:47
DX: I10 Essential (primary) hypertension (principal); Z90.49 Acquired absence of other specified parts of digestive tract; Z92.21 Personal history of antineoplastic chemotherapy
CPT/HCPCS: 36415; 71045; 80053; 80307; 81001; 82553; 83690; 83880; 84484; 85025; 93005; 96374; 96375; 99285-25; G0480; J1200

== ENCOUNTER → 2017-10-21 | Outpatient (CLI) | payer BC ==
[~2017-10-21] MED LIST changes: -AMOX1TAB61 PO; +CONTRAST GIVEN MC; -CONTRAST GIVEN MC PRN; -CYCL10TA2 PO; -GABA300C8 PO; -IOHEXOL 240 MG/ML 50ML VIAL. PO ONE; -IOHEXOL 300 MG/ML 100ML VIAL. IV ONE; -LISI1TAB5 PO; -MELO15TA23 PO; -OXYC1TAB7 PO; -OXYC20TA34 PO
[2017-10-21] MEDS: IOHEXOL 300 MG/ML 100ML VIAL. IV (09:28)
[2017-10-21] MEDS: IOHEXOL 240 MG/ML 50ML VIAL. PO (09:28)
== END | disposition home or self-care (01) ==
LOC: NM 07:38
DX: C25.2 Malignant neoplasm of tail of pancreas (principal)
CPT/HCPCS: 71260; 74177; 78306; 96374; A9503; Q9966; Q9967